=== PATIENT | male | born 1940 | race Caucasian/White ===

== ENCOUNTER 2022-03-16 05:48 | Inpatient (IN) | payer MEDICARE, OTHER, SELFPAY ==
[2022-03-16] VITALS (15 sets, daily range): BP systolic 116–177; BP diastolic 43–97; PULSE 69–98; RESP 15–20; TEMP 36.5–36.6; O2SAT 95–99; BMI 33.7
--- NOTE | 2022-03-16 | ECHO_ITS ---
Patient Info Name: Rob Aguiar Age: 81 years : 1940 Gender: Male Ht: 74 in Wt: 262 lbs BSA: 2.53 m2 HR: 95 bpm BP: 116 / 82 mmHg Heart Rhythm: Indeterminant Technical Quality: Fair Exam Date: 03/16/2022 4:27 PM Exam Location: [facility] Pulmonary Exam Room: 213 Patient Status: Inpatient Admit Date: 03/16/2022 Staff Ordering Physician: Omar Quiñonez MD Retail Department Reset: Yakelin Palafox RDCS Attending Provider: Omar Quiñonez MD Exam Type: CA echo doppler color flow Study Info Indications - ELEVATED TROPONINS CAD PPM Complete two-dimensional, color flow and Doppler transthoracic echocardiogram is performed. Summary 1. Complete two-dimensional, color flow and Doppler transthoracic echocardiogram is performed. 2. Normal left ventricular size with mild concentric hypertrophy. Moderate global hypokinesis with an ejection fraction of 35-40% visually. No segmental wall motion abnormalities although there is abnormal septal motion perhaps related to the underlying bundle branch block. Diastolic dysfunction is present. 3. Left atrial chamber dimension is mildly enlarged. 4. No significant valve disease. 5. Dilated inferior vena cava with >50% collapse upon inspiration consistent with elevated right atrial pressure, 10 mmHg. 6. Very technically difficult study. Left Ventricle Left ventricular chamber dimension is normal. Left ventricular systolic function is moderately reduced, estimated at 35-40%. There is mildly increased left ventricular wall thickness. Left ventricular septal wall motion is normal. The left ventricular diastolic function is abnormal. Right Ventricle Right ventricular chamber dimension is normal. Right ventricular systolic function is normal. Left Atria Left atrial chamber dimension is mildly enlarged. Right Atria Right atrial chamber dimension is normal. Aortic Valve The aortic valve is trileaflet. There is no aortic valve sclerosis. There is no aortic valve stenosis. There is no aortic valve regurgitation. Pulmonic Valve The pulmonic valve is normal. There is no pulmonic valve stenosis. There is no pulmonic regurgitation. Mitral Valve The mitral valve has normal leaflets. There is no mitral valve stenosis. There is no mitral valve regurgitation. Tricuspid Valve The tricuspid valve leaflets are normal. There is no significant tricuspid valve stenosis. There is trace tricuspid valve regurgitation. Mild pulmonary hypertension, estimated pulmonary arterial systolic pressure is 35 mmHg. Pericardium/Pleural The pericardium appears normal. There is no pericardial effusion. Inferior Vena Cava Dilated inferior vena cava with >50% collapse upon inspiration consistent with elevated right atrial pressure, 10 mmHg. Aorta The aortic root size at the sinus of Valsalva is normal. The prox ascending aorta size is normal. Left Ventricular Outflow Tract Name Value Normal LVOT 2D LVOT Diameter 2.2 cm LVOT Doppler LVOT Peak Gradient 4 mmHg LVOT Mean Gradient 3 mmHg LVOT VTI
--- NOTE | ~2022-03-16 | US_ITS ---
US renal BI 03/16/2022 15:23 Procedure: Realtime transabdominal ultrasound of the kidneys and bladder. Indication: Renal insufficiency Comparison: No prior studies for comparison. Findings: Renal echotexture is normal bilaterally without hydronephrosis, contour deforming mass or r enal calculus. The right kidney measures 11.7 cm and left kidney measures 11.9 cm. Bladder within no rmal limits. There is a left renal cyst measuring 1.7 cm. Mildly enlarged prostate gland. Impression: 1: Left renal cyst measuring 1.7 cm. Reviewed, dictated and finalized at location B. Impression: 1: Left renal cyst measuring 1.7 cm.
--- NOTE | ~2022-03-16 | XR_ITS ---
EXAMINATION: XR chest 1V portable DATE: 03/16/2022 06:10 INDICATION: Chest tightness. TECHNIQUE: A single frontal view of the chest was obtained. COMPARISON: None. FINDINGS: There is no pneumonia, pleural effusion, or pneumothorax. Cardiomegaly is noted. There is a left chest wall pacer with leads in the right atrium and right ventricle. IMPRESSION: 1. Cardiomegaly. Reviewed, dictated and finalized at location A. IMPRESSION: 1. Cardiomegaly.
--- NOTE | ~2022-03-16 | CT_ITS ---
EXAMINATION: CT abdomen pelvis wo con DATE: 03/16/2022 07:09 INDICATION: Generalized abdominal pain. TECHNIQUE: Computed tomography (CT) of the abdomen and pelvis was performed without intravenous contr ast. Automated exposure control and iterative reconstruction technique were employed. The dose-length product was 1374.91 mGy-cm. COMPARISON: None. FINDINGS: The visualized portions of the lung bases are clear without pneumonia or pleural effusion. The heart size is normal. There are coronary artery calcifications. There are pacer wires in right at rium and right ventricle. No pericardial effusion. There is a small sliding hiatal hernia. The liver and spleen are normal. There is gallstones in the gallbladder, which is normal in size. The pancreas, adrenal glands, and kidneys are normal. There is no urolithiasis. The prostate is mildly enlarged. T here is prominent fat in right inguinal canal that may be a hernia. There is diverticulosis of the co gavino without evidence of diverticulitis. The appendix is normal. There are no pathologically enlarged lymph nodes. There is no free intraperitoneal fluid. There is an umbilical hernia containing fat. The re is severe lumbar spondylosis. There are bridging endplate osteophytes at multiple levels in the sp ine, consistent with diffuse idiopathic skeletal hyperostosis (DISH). IMPRESSION: 1. Small sliding hiatal hernia. 2. Umbilical hernia containing fat. Prominent fat in right inguinal canal that may be a hernia. Reviewed, dictated and finalized at location A.
--- NOTE | 2022-03-16 05:55 | ED.ABDPAIN ---
HPI - Abdominal Pain General Chief Complaint: Abdominal Pain Stated Complaint: ABD PAIN Time Seen by Provider: 03/16/22 05:54 History of Present Illness HPI narrative: 81-year-old male with history of CAD, with pacemaker presents here with several days of feeling unwell, he is endorsing nausea and feeling of anxiety, states that he thinks he may be having panic attacks though he is never had them in the past, with some mild chest tightness and difficulty breathing, and abdominal pain along the top of his abdomen. Related Data Allergies Allergy/AdvReac Type Severity Reaction Status Date / Time metformin Allergy Unknown Verified 03/16/22 07:37 Review of Systems Review of Systems: CONST: No fever. HEENT: No sore throat C/V: Chest tightness RESP: Some difficulty breathing GI: Reports abdominal pain, nausea : No dysuria. M/S: No joint pain. SKIN: No rash. NEURO: [No headache or focal numbness or weakness] PSYCH: [No depression] PMFSH Past Medical History Medical History (Updated 03/16/22 @ 07:32 by Leigh Zhou MD) CAD (coronary artery disease) Surgical History Surgical History (Updated 03/16/22 @ 07:32 by Leigh Zhou MD) History of permanent cardiac pacemaker placement Course Vital Signs Vital signs: Vital Signs Temperature 97.9 F 03/16/22 05:40 Pulse Rate 98 03/16/22 05:40 Respiratory Rate 15 03/16/22 05:40 Blood Pressure 134/43 L 03/16/22 05:40 Pulse Oximetry 99 03/16/22 05:40 Oxygen Delivery Room Air 03/16/22 05:40 Temperature 97.9 F 03/16/22 05:40 Pulse Rate 95 03/16/22 06:53 Respiratory Rate 15 03/16/22 06:53 Blood Pressure 123/97 H 03/16/22 06:53 Pulse Oximetry 98 03/16/22 06:53 Oxygen Delivery Room Air 03/16/22 05:40 MDM - Abdominal Pain MDM Narrative Medical decision making narrative: ED COURSE AND MEDICAL DECISION MAKIN81 year old male presenting with anxiety attack. EKG done in triage negative for acute ischemic changes but a lot of ectopy. Cardiac workup is initiated. I am concerned for ACS/FL, presentation not consistent with dissection or aneurysm without radiation of pain or pulse deficits. CXR negative for mediastinal widening. No signs of sepsis that would be concerning for esophageal perforation or mediastinitis. No cardiomegaly or JVD to suggest pericardial effusion/tamponade; also considered pancreatitis or biliary disease. Troponin is elevated. Patient given aspirin, and will be admitted for further workup. Case discussed with hospitalist Dr. Quiñonez. Procedures: Pulse oximetry interpretation - not hypoxic. EKG interpretation. Lab Data Result diagrams: 03/16/22 05:57 03/16/22 05:57 Labs: Lab Results 03/16/22 03/16/22 03/16/22 Range/Units 05:57 05:57 06:26 WBC 10.3 H (4.5-10.0) K/mm3 RBC 4.32 L (4.6-6.20) M/mm3 Hgb 12.7 L (14.0-18.0) g/dL Hct 38.3 L (42.0-52.0) % MCV 88.7 (80-100) fl MCH 29.4 (26-34) pg MCHC 33.2 (32-36) g/dl RDW 12.8 (11.5-14.5) % Plt Count 263 (150-375) k/mm3 MPV 10.0 (7.4-10.4) fl Immature Gran % (Auto) 0.6 H (0-0.5) % Neut % (Auto) 69.8 (45.5-73.1) % Lymph % (Auto) 18.0 L (18.3-44.2) % Walton % (Auto) 8.8 H (2.6-8.5) % Eos % (Auto) 2.2 (0-4.4) % Baso % (Auto) 0.6 (0.2-1.2) % Lymph # (Auto) 1.86 (0.9-3.2) K/mm3 Walton # (Auto) 0.9 H (0.1-0.6) K/mm3 Eos # (Auto) 0.2 (0-0.3) K/mm3 Baso # (Auto) 0.1 (0.0-0.1) K/mm3 Abs Immat Gran (auto) 0.06 H (0.00-0.031) K/mm3 Absolute Neuts (auto) 7.2 H (1.3-6.7) K/mm3 Absolute Nucleated RBC 0.0 (0.0-0.012) K/mm3 Nucleated RBC % 0.0 (0.0-0.2) % Sodium 127 L (137-145) mmol/L Potassium 4.5 (3.4-5.0) mmol/L Chloride 94 L (98-107) mmol/L Carbon Dioxide 23 (22-30) mmol/L Anion Gap 10 (8-16) mmol/L BUN 29 H (9-20) mg/dL Creatinine 1.60 H (0.7-1.3) mg/dL Estim Creat Clear Calc Not Rep
--- NOTE | 2022-03-16 05:56 | ECG_ITS ---
Measurements Intervals [place] Rate: 95 P: 123 VA: 215 QRS: 264 QRSD: 178 T: 76 QT: 415 QTc: 522 Interpretive Statements ELECTRONIC ATRIAL PACEMAKER ELECTRONIC VENTRICULAR PACEMAKER APPROPRIATE CAPTURE AND SENSING DEMONSTRATED ABNORMAL RHYTHM ECG NO PREVIOUS ECG AVAILABLE FOR COMPARISON Electronically Signed On 03-16-2022 7:27:59 CDT by Aj Wade M.D.
[2022-03-16 06:08] LABS: Basophils Absolute Auto 0.1 K/mm3 (0.0-0.1); Basophils Percent Auto 0.6 % (0.2-1.2); Eosinophils Absolute Auto 0.2 K/mm3 (0-0.3); Eosinophils Percent Auto 2.2 % (0-4.4); Hematocrit 38.3 % (42.0-52.0); Hemoglobin 12.7 g/dL (14.0-18.0); Immature Granulocyte Absolute 0.06 K/mm3 (0.00-0.031); Immature Granulocyte Percent A 0.6 % (0-0.5); Lymphocytes Absolute Auto 1.86 K/mm3 (0.9-3.2); Mean Corpuscular HGB Conc 33.2 g/dl (32-36); Mean Corpuscular Hemoglobin 29.4 pg (26-34); Mean Corpuscular Volume 88.7 fl (80-100); Monocytes Absolute Auto 0.9 K/mm3 (0.1-0.6); Monocytes Percent Auto 8.8 % (2.6-8.5); Neutrophils Absolute Auto 7.2 K/mm3 (1.3-6.7); Neutrophils Percent Auto 69.8 % (45.5-73.1); Platelet Count Result 263 k/mm3 (150-375); Red Blood Count 4.32 M/mm3 (4.6-6.20); Red Cell Distribution Width 12.8 % (11.5-14.5); White Blood Count 10.3 K/mm3 (4.5-10.0)
[2022-03-16 06:14] LABS: Alanine Aminotransferase 26 U/L (6-50); Albumin Level 4.5 g/dL (3.5-5.1); Alkaline Phosphatase 116 U/L (38-126); Anion Gap 10 mmol/L (8-16); Aspartate Amino Transferase 27 U/L (17-59); Bilirubin,Total 0.8 mg/dL (0.2-1.3); Blood Urea Nitrogen 29 mg/dL (9-20); Calcium 8.6 mg/dL (8.4-10.2); Carbon Dioxide 23 mmol/L (22-30); Chloride 94 mmol/L (98-107); Estimated Glomerular Filt Rate 42; Glucose 214 mg/dL (65-110); Magnesium 1.9 mg/dL (1.6-2.3); Potassium 4.5 mmol/L (3.4-5.0); Sodium 127 mmol/L (137-145)
[2022-03-16 06:36] LABS: NT Pro B Type Natriuretic Pept 1260 pg/mL (5-100); Troponin I 0.102 ng/mL (0.000-0.034)
[2022-03-16 06:41] LABS: Appearance Urine Clear (Clear); Bilirubin Urine Negative (Negative); Color Urine Yellow (Yellow); Glucose Urine UA Negative (Negative); Ketones Urine Negative (Negative); Leukocyte Esterase Ur Negative LEU/UL (Negative); Nitrate Urine Negative (Negative); Protein Urine Negative (Negative); Urobilinogen Urine 0.2 mg/dL (<2.0)
[2022-03-16 06:52] LABS: Add Urine Microscopic? YES; Blood Urine Trace-Intact (Negative)
[2022-03-16] MEDS: ONDANSETRON INJ 4 MG/2 ML VIAL IV PUSH (06:52)
[2022-03-16] MEDS: FAMOTIDINE 20 MG/2 ML VIAL IV PUSH (06:52)
[2022-03-16] MEDS: ASPIRIN 81 MG CHEWABLE TABLET 324 MG PO (06:52)
[2022-03-16 07:37] LABS: Bacteria Urine Trace /hpf; RBC Urine 0-2 /hpf (0-2)
--- NOTE | 2022-03-16 08:24 | ADMGEN ---
This patient, Rob Aguiar Jr., was admitted to IMU Room 213-01 @ 0815. Patient oriented to hospital policies and general routines including ID bracelet, bed and alarms, visiting hours, pain management, procedures, bathroom and other care routines, personal items, smoking policy, room service/diet, and visiting hours. Information on how to activate the Rapid Response Team has been discussed. Patient are encouraged to report perceived risks to care and to ask questions if they do not understand what they are told or what they should do.
[2022-03-16 09:29] LABS: Troponin I 0.092 ng/mL (0.000-0.034)
[2022-03-16 12:37] LABS: Troponin I 0.088 ng/mL (0.000-0.034)
--- NOTE | 2022-03-16 13:27 | PM.IMHP ---
H&P: HPI History of Present Illness Date/Time: 03/16/22 13:27 Chief Complaint: Abdominal pain Narrative: 81yo male with hx of CAD, PM and anxiety here for abdominal pain. Patient was living in [place] up until sometime last year. His in October 2020. He subsequently moved to [facility]. He was diagnosed with anxiety after that move. Prior to moving, he never had issues with anxiety. He has since moved to [facility] assisted living to be close to his son in October 2021. Which patient has continued to have ?problems with anxiety? over the past 8-9 months. Anxiety seemed to worsen over the past 3 days with ?anxiety attacks?. Feels that the a ?johnson are closing in? and describes the symptoms as slight shortness of breath, nausea and upper abdominal pain. He has had decreased output but no weight loss. He lost weight at the time of his 's passing but has gained that weight back. About 3 weeks ago, he cut his BuSpar in half but his symptoms worsened so he went back to a full pill 3 times a day about 1 week ago. Patient denies any fever, chills, headache, diaphoresis, hearing loss, vision changes, odynophagia, dysphagia, chest pain, diarrhea, numbness/tingling in his extremities, weakness, calf pain, rash, joint pain. He does have fluttering in his chest during these events. [facility]. he has coronary disease and a pacemaker in place but he is vague on these details. He does have hypertension and diet-controlled diabetes. When he has the onset of these symptoms he ?tough it out . Nothing seems to make the symptoms better or worse. He does not know of any trigger. Patient had trouble sleeping last night. His insomnia made his symptoms of anxiety worse. In the [place] fire [facility] hours EMS was contacted. On EMS evaluation, patient's vital signs were stable. Glucose was 246. He was brought to the emergency room for evaluation. In the emergency room, vital signs remained stable. Sodium was 127 with a BUN 29 creatinine 1.6. Baseline creatinine is unknown. Patient denies any renal problems. His glucose was 214. LFTs are normal. Troponin was elevated 0.10 but has trended down from there. BNP was 1260. Urinalysis was clear. Chest x-ray showed cardiomegaly. CT of the abdomen pelvis without contrast showed small sliding hiatal hernia and umbilical hernia containing fat. He did have gallstones noted. He is given Pepcid once as well as aspirin and Zofran. He was admitted for further care. Since admission, patient feels well. He is eating and tolerating it without symptoms. Review of Systems Review of Systems: All systems reviewed & are unremarkable except as noted in HPI and below PMFSH Past Medical History Medical History (Updated 03/16/22 @ 13:55 by Omar Quiñonez MD) Anxiety CAD (coronary artery disease) Diabetes mellitus HTN (hypertension), benign Surgical History Surgical History (Updated 03/16/22 @ 13:43 by Omar Quiñonez MD) H/O arthroscopic knee surgery H/O shoulder surgery History of cervical spinal surgery History of lumbar surgery History of permanent cardiac pacemaker placement Family History Family History (Updated 03/16/22 @ 13:44 by Omar Quiñonez MD) Father CAD (coronary artery disease) Mother Diabetes mellitus Sibling Leukemia Other Unknown family medical history Social History Social History (Updated 03/16/22 @ 13:45 by Omar Quiñonez MD) Social History: Patient lives in assisted living in [place]. He [facility]. He quit tobacco in 1979 after smoking half a pack a day for 20 years. Denies alcohol or drug use. Lives alone. He is DNR. He nominates his son to be the individual would make medical decisions for him if he is unable. Smoking status: Former smoker Tobacco type: cigarettes Alcohol intake: never Substance use: never Spiritual care concerns: No Meds Home Medications and Allergies Ho
[2022-03-16 15:30] LABS: Lipase 55 U/L (23-300)
[2022-03-16 15:33] LABS: Anion Gap 7 mmol/L (8-16); Blood Urea Nitrogen 28 mg/dL (9-20); Calcium 8.4 mg/dL (8.4-10.2); Carbon Dioxide 25 mmol/L (22-30); Chloride 95 mmol/L (98-107); Estimated CRCL calculation 44 ml/min; Estimated Glomerular Filt Rate 42; Glucose 190 mg/dL (65-110); Potassium 5.5 mmol/L (3.4-5.0); Sodium 127 mmol/L (137-145)
[2022-03-16 15:34] LABS: D Dimer 0.41 ug/mL (<0.48)
[2022-03-16] MEDS: polyethylene glycoL 3350 17 GM POWD.PACK PO (15:59)
[2022-03-16] MEDS: ALPRAZolam (*CRX) 0.25 MG TABLET PO (16:01)
[2022-03-16] MEDS: SODIUM CHLORIDE 0.9% IV 1,000 ML 100 ML IV CONT (16:02)
[2022-03-16 16:42] LABS: Glucose Point of Care 162 mg/dl (65-105)
--- NOTE | 2022-03-16 16:57 | PC.NURSE ---
[facility] PACEMAKER REP CALLED FOR INTERROGATION OF PACEMAKER
[2022-03-16 19:06] LABS: Eosinophil Urine None Seen % (None Seen)
[2022-03-16 19:58] LABS: Potassium 5.8 mmol/L (3.4-5.0)
[2022-03-16 20:09] LABS: Glucose Point of Care 171 mg/dl (65-105)
[2022-03-16] MEDS: traZODone HCL 25 MG TABLET PO (21:19)
[2022-03-16] MEDS: TAMSULOSIN HCL 0.4 MG CAPSULE PO (21:19)
[2022-03-16] MEDS: ATORVASTATIN 40 MG TABLET 80 MG PO (21:20)
[2022-03-16 21:42] LABS: Hemoglobin A1C 7.9 % (<5.7)
[2022-03-16] MEDS: SODIUM BICARBONATE 8.4% 50 MEQ/50 ML SYRINGE IV PUSH (23:43)
[2022-03-16] MEDS: CALCIUM GLUC 1,000 MG/NS 50 ML 1,000 MG/50 ML BAG 100 MG IVPB (23:43)
[2022-03-16] MEDS: DEXTROSE 50% 25 GM/50 ML SYRINGE IV PUSH (23:43)
[2022-03-16] MEDS: busPIRone HCL 10 MG TABLET PO (23:44)
[2022-03-16] MEDS: INSULIN HUMAN REGULAR (*BKC) 100 UNITS/ML 10 UNITS IV PUSH (23:46)
[2022-03-16] MEDS: SODIUM POLYSTYRENE SULFONONATE 15 GM/60 ML BTL PO (23:55)
[2022-03-17] VITALS (13 sets, daily range): BP systolic 137–173; BP diastolic 65–88; PULSE 75–94; RESP 18; TEMP 36.2–36.8; O2SAT 97–100
[2022-03-17 00:37] LABS: Glucose Point of Care 180 mg/dl (65-105)
[2022-03-17 01:26] LABS: Anion Gap 8 mmol/L (8-16); Blood Urea Nitrogen 27 mg/dL (9-20); Calcium 8.7 mg/dL (8.4-10.2); Carbon Dioxide 25 mmol/L (22-30); Chloride 94 mmol/L (98-107); Estimated CRCL calculation 42 ml/min; Estimated Glomerular Filt Rate 39; Glucose 163 mg/dL (65-110); Potassium 4.5 mmol/L (3.4-5.0); Sodium 127 mmol/L (137-145)
[2022-03-17 05:04] LABS: Basophils Absolute Auto 0.1 K/mm3 (0.0-0.1); Basophils Percent Auto 0.6 % (0.2-1.2); Eosinophils Absolute Auto 0.2 K/mm3 (0-0.3); Eosinophils Percent Auto 1.8 % (0-4.4); Hematocrit 34.7 % (42.0-52.0); Hemoglobin 11.8 g/dL (14.0-18.0); Immature Granulocyte Absolute 0.05 K/mm3 (0.00-0.031); Immature Granulocyte Percent A 0.5 % (0-0.5); Lymphocytes Absolute Auto 1.55 K/mm3 (0.9-3.2); Mean Corpuscular Hemoglobin 29.5 pg (26-34); Mean Corpuscular Volume 86.8 fl (80-100); Mean Platelet Volume 9.7 fl (7.4-10.4); Monocytes Absolute Auto 1.1 K/mm3 (0.1-0.6); Monocytes Percent Auto 10.8 % (2.6-8.5); Neutrophils Absolute Auto 7.4 K/mm3 (1.3-6.7); Neutrophils Percent Auto 71.3 % (45.5-73.1); Platelet Count Result 246 k/mm3 (150-375); Red Cell Distribution Width 12.7 % (11.5-14.5); White Blood Count 10.3 K/mm3 (4.5-10.0)
[2022-03-17 05:20] LABS: Alanine Aminotransferase 25 U/L (6-50); Albumin Level 3.8 g/dL (3.5-5.1); Alkaline Phosphatase 74 U/L (38-126); Anion Gap 8 mmol/L (8-16); Aspartate Amino Transferase 25 U/L (17-59); Bilirubin,Total 1.3 mg/dL (0.2-1.3); Blood Urea Nitrogen 27 mg/dL (9-20); CRP < 0.5 mg/dL (<1.0); Calcium 8.4 mg/dL (8.4-10.2); Carbon Dioxide 24 mmol/L (22-30); Chloride 96 mmol/L (98-107); Estimated CRCL calculation 44 ml/min; Estimated Glomerular Filt Rate 42; Glucose 119 mg/dL (65-110); Potassium 4.4 mmol/L (3.4-5.0); Sodium 128 mmol/L (137-145)
[2022-03-17] MEDS: busPIRone HCL 10 MG TABLET PO ×3 (05:40→23:33)
[2022-03-17 05:57] LABS: Cortisol Random 9.53 ug/dL
[2022-03-17] MEDS: CHOLECALCIFEROL 1,000 UNITS TABLET 1000 UNITS PO (08:52)
[2022-03-17] MEDS: PANTOPRAZOLE 40 MG TABLET PO (08:52)
[2022-03-17] MEDS: ENOXAPARIN 40 MG/0.4 ML SYRINGE SUB-Q (08:53)
[2022-03-17] MEDS: FINASTERIDE 5 MG TABLET PO (08:53)
[2022-03-17] MEDS: ASPIRIN 81 MG ENTERIC TABLET PO (08:53)
[2022-03-17 08:56] LABS: Glucose Point of Care 142 mg/dl (65-105)
--- NOTE | 2022-03-17 09:11 | PM.CNCAR ---
Assessment and Plan Assessment and plan (1) Elevated troponin: Code(s): R77.8 - Other specified abnormalities of plasma proteins Status: Acute Assessment and Plan: Peaked at .1 and trended down. Could be related to systolic dysfunction, CKD or CAD. No symptoms to suggest ACS. Echo 03/16/22 with global hypokinesis with EF 35-40%. Obtain Lexiscan myoview stress test today. (2) HTN (hypertension), benign: Code(s): I10 - Essential (primary) hypertension Status: Acute Assessment and Plan: Stable. (3) History of permanent cardiac pacemaker placement: Code(s): Z95.0 - Presence of cardiac pacemaker Status: Acute Assessment and Plan: [employer] device being interrogated shows no arrhythmias including atrial fib. He is 95% V paced with 10 years battery life. (4) Systolic dysfunction: Code(s): I51.9 - Heart disease, unspecified Status: Acute Assessment and Plan: Moderately reduced. Obtain records from [facility] of echo, cath, pacemaker implant and hospitalization notes. (5) Anxiety attack: Code(s): F41.0 - Panic disorder [episodic paroxysmal anxiety] Status: Acute Assessment and Plan: Symptoms probably related to anxiety. (6) Diabetes mellitus: Code(s): E11.9 - Type 2 diabetes mellitus without complications Status: Acute Assessment and Plan: Managed by hospitalist. (7) Dyslipidemia: Code(s): E78.5 - Hyperlipidemia, unspecified Status: Acute Assessment and Plan: On Atorvastatin. History of Present Illness History of Present Illness Consult date/time: 03/17/22 09:11 Reason for consult: elevated troponin 81 yr old man presented to ER with anxiety attack. 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 He is a poor historian. Reports that he relocated from [place] to [facility] last year. Then he relocated recently to [facility] living locally. He can walk with his walker up to 1 block and he uses it for balance. Reports he has been having more anxiety attacks and it manifest as sob, palpitations, abdominal pain. Currently his anxiety is better and no more symptoms associated with it. Denies chest pain, sob, orthopnea, PND, edema, dizziness. Reason For Visit: Elevated Trop, Chest/ Abdominal DIscomfort Review of Systems Review of Systems: All systems reviewed & are unremarkable except as noted in HPI and below Constitutional: Constitutional: Reports as per HPI, Denies chills and Denies fever(s) Cardiovascular: Cardiovascular: Reports as per HPI, Denies chest pain, Denies irregular heart rhythm, Denies leg edema and Denies lightheadedness Respiratory: Respiratory: Reports as per HPI and Reports dyspnea Gastrointestinal: Gastrointestinal: Reports as per HPI and Reports abdominal pain Genitourinary: Genitourinary: Reports as per HPI and Denies dysuria Musculoskeletal: Musculoskeletal: Reports as per HPI and Reports back pain Neurologic: Reports as per HPI, Denies dizziness and Denies syncope [facility] Past Medical History Medical History (Updated 03/17/22 @ 09:16 by Jonas Conner DO) Anxiety CAD (coronary artery disease) Diabetes mellitus HTN (hypertension), benign Surgical History Surgical History (Updated 03/16/22 @ 13:43 by Omar Quiñonez MD) H/O arthroscopic knee surgery H/O shoulder surgery History of cervical spinal surgery History of lumbar surgery History of permanent cardiac pacemaker placement Family History Family History (Updated 03/16/22 @ 13:44 by Omar Quiñonez MD) Father CAD (coronary artery disease) Mother Diabetes mellitus Sibling Leukemia Other Unknown family medical history Social History Social History (Updated 03/16/22 @ 13:45 by Omar Quiñonez MD) Social History: Patient lives in assisted living in [place]. [facility] He quit
[2022-03-17 12:37] LABS: Glucose Point of Care 119 mg/dl (65-105)
[2022-03-17] MEDS: polyethylene glycoL 3350 17 GM POWD.PACK PO (13:00)
[2022-03-17] MEDS: ALPRAZolam (*CRX) 0.25 MG TABLET PO ×2 (16:02→23:36)
[2022-03-17 16:58] LABS: Glucose Point of Care 180 mg/dl (65-105)
--- NOTE | 2022-03-17 17:10 | PM.IMPN ---
Progress Note: A&P Assessment and Plan (1) Abdominal pain: Code(s): R10.9 - Unspecified abdominal pain Status: Acute (2) Elevated troponin: Code(s): R77.8 - Other specified abnormalities of plasma proteins Status: Acute (3) Anxiety attack: Code(s): F41.0 - Panic disorder [episodic paroxysmal anxiety] Status: Acute (4) Renal insufficiency: Code(s): N28.9 - Disorder of kidney and ureter, unspecified Status: Acute (5) Diabetes mellitus: Code(s): E11.9 - Type 2 diabetes mellitus without complications Status: Acute (6) HTN (hypertension), benign: Code(s): I10 - Essential (primary) hypertension Status: Acute (7) History of permanent cardiac pacemaker placement: Code(s): Z95.0 - Presence of cardiac pacemaker Status: Acute (8) Hyponatremia: Code(s): E87.1 - Hypo-osmolality and hyponatremia Status: Acute Plan Patient presents with complaints of ?anxiety attack? associated with shortness of breath and upper abdominal pain. He has ?heart disease? but is unclear if he has had stent placement. He does have other risk factors such as diabetes and hypertension. Troponins are elevated on admission but trended downward. EKG is unhelpful as is mostly paced rhythm. Chest x-ray shows cardiomegaly but no pulmonary edema. BNP elevated but doubt CHF. Symptoms could be related to anxiety with panic attacks but does not explain the elevated troponin. Lexiscan stress test ordered but he could not tolerate. PM interrogation showing mostly Atrial or ventricular paced. Sodium slightly better. Cr stable at 1.6. Renal ultrasound normal. A1c 7.9 but glucose well controlled here. Continue diabetic diet. Echo showing EF 35-40% with diastolic dysfunction. No significant valvular disease noted. Will add empagliflozin. BP noted. Continue to hold hydrochlorothiazide and lisinopril. Mood seems to be better today. Will continue his BuSpar and trazodone. Alprazolam available as needed. Old records requested. Start PT and OT. Check urine sodium. Appreciate Cardiology input. Discussed with Cardiology. Will add Coreg. Consider Entresto. DVT prophylaxis: Lovenox Code status: DNR Subjective Date/time seen: 03/17/22 17:10 Interval history: 81yo male with hx of CAD, PM and anxiety here for abdominal pain. Patient slept well last night. He denies any abdominal pain. He has been up walking the halls. He denies any chest pain or shortness of breath. No nausea or vomiting. Exam Narrative: AF 97.2 173/72 88 18 100% ra Gen - NARD Chest - CTA bilaterally CV - irregularly irregular; Tele showing intermittently paced rhythm Abd - soft, NT/ND, +BS Ext - no pedal edema Psych - normal mood and affect. Patient is calm, pleasant and cooperative. Skin - warm and dry. Objective Data Vital Signs Vital Signs: Vital Signs - 24 hr 03/16/22 17:55 03/16/22 20:00 03/16/22 23:25 Temperature 97.9 F 97.9 F Pulse Rate 97 69 82 Respiratory Rate 20 18 Blood Pressure 134/57 L 130/50 L Pulse Oximetry 97 96 Oxygen Delivery 03/16/22 20:00 03/16/22 22:00 03/17/22 00:00 Temperature Pulse Rate 86 70 75 Respiratory Rate Blood Pressure Pulse Oximetry Oxygen Delivery 03/17/22 02:00 03/16/22 22:53 03/17/22 04:00 Temperature 97.9 F Pulse Rate 85 80 Respiratory Rate 18 Blood Pressure 137/65 Pulse Oximetry 97 99 Oxygen Delivery Room Air 03/17/22 04:00 03/17/22 06:00 03/17/22 08:00 Temperature 97.2 F L Pulse Rate 90 85 91 Respiratory Rate 18 Blood Pressure 157/88 H Pulse Oximetry 99 Oxygen Delivery 03/17/22 12:00 Temperature 97.2 F L Pulse Rate 88 Respiratory Rate 18 Blood Pressure 173/72 H Pulse Oximetry 100 Oxygen Delivery Intake/Output Intake/Output: Intake & Output 03/14/22 03/15/22 03/16/22 03/17/22 23:59 23:59 23:59 23:59 Intake Total 1240 1350 Output Total
--- NOTE | 2022-03-17 19:45 | PC.NURSE ---
Patient follows with the following providers outpatient. Dr. Harding- PCP . Dr. Barreto[place] [facility] [id number] Dr. Bonds- EP
[2022-03-17] MEDS: traZODone HCL 25 MG TABLET PO (20:51)
[2022-03-17] MEDS: TAMSULOSIN HCL 0.4 MG CAPSULE PO (20:51)
[2022-03-17] MEDS: carvediloL 3.125 MG TABLET PO (20:56)
[2022-03-17] MEDS: ATORVASTATIN 40 MG TABLET 80 MG PO (20:56)
[2022-03-17 21:54] LABS: Glucose Point of Care 120 mg/dl (65-105)
[2022-03-18] VITALS: BP 134/57; PULSE 80; PULSE 87; RESP 18; TEMP 36.2; O2SAT 98
[2022-03-18 04:00] VITALS: PULSE 87
[2022-03-18 05:20] LABS: Anion Gap 7 mmol/L (8-16); Blood Urea Nitrogen 28 mg/dL (9-20); Calcium 8.3 mg/dL (8.4-10.2); Carbon Dioxide 24 mmol/L (22-30); Chloride 97 mmol/L (98-107); Estimated CRCL calculation 47 ml/min; Estimated Glomerular Filt Rate 45; Glucose 101 mg/dL (65-110); Magnesium 1.7 mg/dL (1.6-2.3); Potassium 4.6 mmol/L (3.4-5.0); Sodium 128 mmol/L (137-145)
[2022-03-18] MEDS: busPIRone HCL 10 MG TABLET PO ×2 (06:08→17:07)
--- NOTE | 2022-03-18 07:55 | PM.PNCARD ---
Progress Note: A&P Assessment and Plan (1) Elevated troponin: Code(s): R77.8 - Other specified abnormalities of plasma proteins Status: Acute Assessment and Plan: Peaked at .1 and trended down. Could be related to systolic dysfunction, CKD or CAD. No symptoms to suggest ACS. Echo 03/16/22 with global hypokinesis with EF 35-40%. Unable to do lexiscan myoview stress test due to unable to lie flat, per patient. (2) HTN (hypertension), benign: Code(s): I10 - Essential (primary) hypertension Status: Acute Assessment and Plan: High. Started Coreg 3.125 mg BID. Start Entresto. (3) History of permanent cardiac pacemaker placement: Code(s): Z95.0 - Presence of cardiac pacemaker Status: Acute Assessment and Plan: [employer] device being interrogated shows no arrhythmias including atrial fib. He is 95% V paced with 10 years battery life. (4) Systolic dysfunction: Code(s): I51.9 - Heart disease, unspecified Status: Acute Assessment and Plan: Started Coreg 3.125 mg BID and Jardiance. Start Entresto 12-13 mg BID as he has been off Lisinopril for at least 48 hours. Await records from [place], [place] in Jun 2019 when he had pacemaker, echo, and possible cardiac cath. February d/c home from cardiology standpoint and f/u with me in 1 week. (5) Diabetes mellitus: Code(s): E11.9 - Type 2 diabetes mellitus without complications Status: Acute Assessment and Plan: Managed by hospitalist. (6) Dyslipidemia: Code(s): E78.5 - Hyperlipidemia, unspecified Status: Acute Assessment and Plan: On Atorvastatin. Subjective Date/time seen: 03/18/22 07:55 Denies chest pain or sob. Anxiety resolved and no more abdominal pain. Exam Const: General: cooperative, healthy appearing and comfortable Nutritional Appearance: obese Resp: Auscultation: clear to auscultation bilaterally, no crackles, no rales, no rhonchi and no wheezes Cardio: Jugular venous distension: no JVD Rate: regular rate Rhythm: regular rhythm Heart sounds: no murmurs GI: GI Palp: No abdominal tenderness and Yes Soft to palpation Neuro: General: oriented to person, oriented to place and oriented to time Extrem: Right lower extremity: no edema Left lower extremity: no edema Objective Data Vital Signs Vital Signs: Vital Signs - 24 hr 03/17/22 08:00 03/17/22 12:00 03/17/22 08:00 Temperature 97.2 F L 97.2 F L Pulse Rate 91 88 Respiratory Rate 18 18 Blood Pressure 157/88 H 173/72 H Pulse Oximetry 99 100 Oxygen Delivery Room Air 03/17/22 12:00 03/17/22 16:00 03/17/22 16:00 Temperature 98.3 F Pulse Rate 82 Respiratory Rate 18 Blood Pressure 162/70 H Pulse Oximetry 98 Oxygen Delivery Room Air Room Air 03/17/22 08:00 03/17/22 10:00 03/17/22 12:00 Temperature Pulse Rate 87 85 87 Respiratory Rate Blood Pressure Pulse Oximetry Oxygen Delivery 03/17/22 14:00 03/17/22 16:00 03/17/22 18:00 Temperature Pulse Rate 90 88 94 Respiratory Rate Blood Pressure Pulse Oximetry Oxygen Delivery 03/17/22 20:56 03/17/22 23:04 03/18/22 00:00 Temperature 97.2 F L Pulse Rate 90 87 Respiratory Rate 18 Blood Pressure 134/57 L Pulse Oximetry 97 98 Oxygen Delivery Room Air 03/17/22 20:00 03/18/22 00:00 03/17/22 20:00 Temperature Pulse Rate 85 80 Respiratory Rate Blood Pressure Pulse Oximetry Oxygen Delivery Room Air 03/18/22 04:00 Temperature Pulse Rate 87 Respiratory Rate Blood Pressure Pulse Oximetry Oxygen Delivery Intake/Output Intake/Output: Intake & Output 03/15/22 03/16/22 03/17/22 03/18/22 23:59 23:59 23:59 23:59 Intake Total 1240 2690 550 Output Total 400 1600 Balance 840 1090 550 Meds/Results Medications: Active Medications Generic Name Dose Route Start Last Admin Trade Name Freq PRN Reason Stop Dose Admin Alprazolam 0.25 mg
[2022-03-18 08:00] VITALS: BP 146/92; PULSE 105; PULSE 89; RESP 16; TEMP 36.1; O2SAT 98
[2022-03-18] MEDS: carvediloL 3.125 MG TABLET PO (08:18)
[2022-03-18] MEDS: PANTOPRAZOLE 40 MG TABLET PO (08:18)
[2022-03-18] MEDS: ASPIRIN 81 MG ENTERIC TABLET PO (08:18)
[2022-03-18] MEDS: CHOLECALCIFEROL 1,000 UNITS TABLET 1000 UNITS PO (08:18)
[2022-03-18] MEDS: ENOXAPARIN 40 MG/0.4 ML SYRINGE SUB-Q (08:18)
[2022-03-18] MEDS: FINASTERIDE 5 MG TABLET PO (08:18)
[2022-03-18] MEDS: polyethylene glycoL 3350 17 GM POWD.PACK PO (08:19)
[2022-03-18] MEDS: EMPAGLIFLOZIN 10 MG TABLET PO (08:19)
[2022-03-18 08:35] LABS: Glucose Point of Care 125 mg/dl (65-105)
[2022-03-18] MEDS: SACUBITRIL/VALSARTAN 12-13 MG TABLET 1 TAB PO (08:39)
[2022-03-18 12:00] VITALS: PULSE 98
[2022-03-18 12:59] LABS: Glucose Point of Care 139 mg/dl (65-105)
[2022-03-18 14:03] LABS: Creatinine Urine 47.3 mg/dL
[2022-03-18 14:16] LABS: Sodium Urine Random 33 meq/L
--- NOTE | 2022-03-18 15:47 | PM.DS ---
DS: Admitting Diagnosis Discharge Date 03/18/22 Admitting Diagnosis Abdominal pain DS: Discharge Diagnosis Discharge Diagnosis (1) Abdominal pain: Code(s): R10.9 - Unspecified abdominal pain Status: Acute (2) Elevated troponin: Code(s): R77.8 - Other specified abnormalities of plasma proteins Status: Acute (3) Anxiety attack: Code(s): F41.0 - Panic disorder [episodic paroxysmal anxiety] Status: Acute (4) Renal insufficiency: Code(s): N28.9 - Disorder of kidney and ureter, unspecified Status: Acute (5) Diabetes mellitus: Code(s): E11.9 - Type 2 diabetes mellitus without complications Status: Acute (6) HTN (hypertension), benign: Code(s): I10 - Essential (primary) hypertension Status: Acute (7) History of permanent cardiac pacemaker placement: Code(s): Z95.0 - Presence of cardiac pacemaker Status: Acute (8) Hyponatremia: Code(s): E87.1 - Hypo-osmolality and hyponatremia Status: Acute DS: Summary Hospital Course Reason for hospitalization: 81yo male with hx of CAD, PM and anxiety here for abdominal pain. Please see H&P for details. w Hospital Course: Patient presents with complaints of ?anxiety attack? associated with shortness of breath and upper abdominal pain. He has ?heart disease? but is unclear if he has had stent placement. He does have other risk factors such as diabetes and hypertension. Troponins are elevated on admission but trended downward. EKG was unhelpful as is mostly paced rhythm. Chest x-ray shows cardiomegaly but no pulmonary edema. BNP elevated but doubt CHF. Symptoms could be related to anxiety with panic attacks but does not explain the elevated troponin. Lexiscan stress test ordered but he could not tolerate lyiing flat. PM interrogation showing mostly Atrial or ventricular paced. Sodium was low but stable 128. [place] related to to the HCTZ. Cr elevated but stable at 1.5. Renal ultrasound normal. Bladder was within normal limits. He did have a PVR of about 300mL. UA was clear. He is already on Proscar and Flomax. No obstructive findings on US. Will have him follow up with urology as outpatient. A1c 7.9 but glucose well controlled here. Cardiology consulted and appreciate their input. Echo showing EF 35-40% with diastolic dysfunction. No significant valvular disease noted. We added empagliflozin, Coreg and Entresto. Mood improved. We continued his BuSpar and trazodone. Alprazolam was available as needed. Old records requested but none forth coming. He worked with PT and OT. His symptoms resolved. Overall he did well and was able to be discharged home on 03/18/2022. Family was in the room and they were updated with patient's permission. Status at Discharge Cognitive/behavioral status at discharge: Stable Time Spent with Patient Time attestation: Total time spent providing and/or coordinating discharge services: 35 minutes Time spent: Greater than 30 minutes Exam Narrative: AF 97.0 146/92 98 16 98% ra Gen - NARD Chest - CTA bilaterally CV - RRR S1/S2; Tele showing mostly paced rhythm Abd - soft, NT/ND, +BS, bladder feels mildly distended and he had about 300mL post-void Ext - no pedal edema Psych - normal mood and affect Skin - warm and dry. DS: Data Data Completed and Pending Labs on day of discharge: Labs from last 24 hours 03/18/22 03/18/22 03/18/22 12:56 12:44 08:29 Sodium Potassium Chloride Carbon Dioxide Anion Gap BUN Creatinine Estim Creat Clear Calc Estimated GFR Glucose POC Capillary Glucose 139 H 125 H Calcium Magnesium Ur Random Sodium 33 Urine Creatinine 47.3 03/18/22 03/17/22 03/17/22 05:01 20:29 16:33 Sodium 128 L Potassium 4.6 Chloride 97 L Carbon Dioxide 24 Anion Gap 7 L BUN 28 H Creatinine 1.50 H Estim Creat Clear Calc 47 Estimated GFR 45 L Gl
[2022-03-18 16:00] VITALS: BP 146/89; PULSE 88; PULSE 91; RESP 16; TEMP 36.3; O2SAT 100
--- NOTE | 2022-03-18 20:15 | PC.NURSE ---
Patient's family called after discharge stating patient did not have the medical coverage he thought and [facility] and they were also missing a prescription for alprazolam. Verified per discharge note that patient was to receive prescription for alprazolam and it was located unsigned printed on IMU printer. Called Dr Han due to Dr Quiñonez being gone for the day and she agrees to sign prescription for family to car pick up driver. Called and spoke with Anna Aguiar, Robyancy Aguiar's daughter in law, per patients request, and [facility] and made arrangements for her to car pick up driver prescription.
[2022-03-20 04:31] LABS: Legionella pneumophila Ag Ur Not Detected (Not Detected)
[2022-03-20 15:42] LABS: Metanephrine, Free 32 pg/mL (<=57); Normetanephrine, Free 256 pg/mL (<=148); Total, Free (MN + NMN) 288 pg/mL (<=205)
--- NOTE | 2022-03-21 11:31 | PC.NURSE ---
Legionella AG is not detected. Free Metanephrine- <=32 Free Normetanephrine- elevated at 256. Total Free Metanephrine- elevated at 288. Dr. Olamide sosa.
--- NOTE | 2022-03-24 08:28 | PC.NURSE ---
On 03/22 called [facility] to speak with nurse regarding f/u for patient. Nurse is not available at this time. Spoke with Mark today regarding patient need for f/u. Nurse unavailable. Left message for nurse to return my call.
--- NOTE | 2022-03-24 13:44 | PC.NURSE ---
Spoke to Shanice, Nurse with [facility], regarding patient abn labs. Patient is followed by DENTAL TECHNICIAN, Lavinia Crain. Labs faxed to [facility].
== END 2022-03-18 17:20 | disposition home or self-care (01) | DRG 880 ==
LOC: ANHED 07:28 → ANHIMU 07:51
PROVIDERS: Physician Assistant; Admitting Provider Internal Medicine; Emergency Provider Emergency Medicine; Visit Provider Internal Medicine
DX: F41.0 Panic disorder [episodic paroxysmal anxiety] (principal); E87.1 Hypo-osmolality and hyponatremia; R77.8 Other specified abnormalities of plasma proteins; F41.9 Anxiety disorder, unspecified; R10.10 Upper abdominal pain, unspecified; I25.10 Atherosclerotic heart disease of native coronary artery without angina pectoris; E11.9 Type 2 diabetes mellitus without complications; E87.5 Hyperkalemia; E66.9 Obesity, unspecified; I11.9 Hypertensive heart disease without heart failure; K42.9 Umbilical hernia without obstruction or gangrene; K44.9 Diaphragmatic hernia without obstruction or gangrene; K80.80 Other cholelithiasis without obstruction; N28.9 Disorder of kidney and ureter, unspecified; Z66 Do not resuscitate; Z79.82 Long term (current) use of aspirin; Z95.0 Presence of cardiac pacemaker; Z87.891 Personal history of nicotine dependence; Z68.33 Body mass index [BMI] 33.0-33.9, adult
CPT/HCPCS: 36415; 51701; 71045; 74176; 76775; 80048; 80053; 81001; 82533; 82570; 82948; 83036; 83690; 83735; 83835; 83880; 84132; 84300; 84443; 84484; 85025; 85380; 85999; 86140; 87449; 93005; 93306; 96361; 96365; 96372; 96375; 97161; 97165; 99285; A9270; G0378; J0610; J1650; J1815; J2405; J7030

== ENCOUNTER 2023-08-14 02:59 | Inpatient (IN) | payer MEDICARE, OTHER, SELFPAY ==
[2023-08-14] VITALS (46 sets, daily range): BP systolic 113–165; BP diastolic 47–92; PULSE 33–121; RESP 12–23; TEMP 36.1–36.7; O2SAT 94–100; BMI 31.1
--- NOTE | 2023-08-14 | ECHO_ITS ---
Patient Info Name: Rob Aguiar Age: 82 years : 1940 Gender: Male Ht: 74 in Wt: 242 lbs BSA: 2.42 m2 HR: 68 bpm BP: 121 / 81 mmHg Technical Quality: Poor Exam Date: 08/14/2023 11:48 AM Exam Location: Echo Lab Exam Room: ICU-3 Patient Status: Inpatient Admit Date: 08/14/2023 Staff Ordering Physician: Jonas Conner DO 1 Year [employer] Pres[employer] Teacher: Yakelin Palafox RDCS Attending Provider: Kristen Perez MD Referring Physician: Ubaldo FERNANDEZ; Exam Type: CA echo doppler color flow Study Info Indications - SHORT OF BREATH PPM Complete two-dimensional, color flow and Doppler transthoracic echocardiogram is performed with contrast to opacify the left ventricle and to improve the deliniation of the left ventricle endocardial borders. Contrast/Agitated Saline Contrast/Ag. Saline: Definity Amount: 2.00 ml Administered By: Yakelin Palafox [facility] Existing IV Access: Yes IV Access Condition: patent with no signs of infiltration Summary 1. Definity contrast administered improved wall motion interpretation. 2. Left ventricular chamber dimension is moderately enlarged. 3. Left ventricular systolic function is severely reduced, estimated at 30-35%. 4. There is moderate concentric increased left ventricular wall thickness. 5. The left ventricular diastolic function is abnormal. 6. E/e' 19 is elevated. 7. Linear artifact in right ventricle suggestive of catheter(s), pacemaker lead(s), or ICD lead(s). 8. Left atrial chamber dimension is moderately enlarged. 9. Right atrial chamber dimension is severely enlarged. 10. Linear artifact in the right atrium suggestive of catheter(s), pacemaker lead(s), or ICD lead(s). 11. There is mild aortic valve sclerosis. 12. There is mild mitral valve regurgitation. 13. No pulmonary hypertension, estimated pulmonary arterial systolic pressure is 28 mmHg. Left Ventricle E/e' 19 is elevated. Definity contrast administered improved wall motion interpretation. Left ventricular chamber dimension is moderately enlarged. Left ventricular systolic function is severely reduced, estimated at 30-35%. There is moderate concentric increased left ventricular wall thickness. The left ventricular diastolic function is abnormal. Right Ventricle Linear artifact in right ventricle suggestive of catheter(s), pacemaker lead(s), or ICD lead(s). Right ventricular chamber dimension is normal. Right ventricular systolic function is normal. Left Atria Left atrial chamber dimension is moderately enlarged. Right Atria Linear artifact in the right atrium suggestive of catheter(s), pacemaker lead(s), or ICD lead(s). Right atrial chamber dimension is severely enlarged. Aortic Valve The aortic valve is trileaflet. There is mild aortic valve sclerosis. There is no aortic valve stenosis. There is no aortic valve regurgitation. Pulmonic Valve There is no pulmonic regurgitation. Mitral Valve There is no mitral valve stenosis. There is mild mitral valve regurgitation. Tricuspid Valve There is no tricuspid valve regurgitation. No pulmonary hypertension, estimated pulmonary arterial systolic pressure is 28 mmHg. Pericardium/Pleural There is no pericardial effusion. Inferior Vena Cava Normal inferior vena cava with >50% collapse upon inspiration consistent with normal right atrial pressure, 5 mmHg. Aorta The aortic root size at the sinus of Valsalva is normal. Left Ventricular Outflow Tract Name Value
--- NOTE | ~2023-08-14 | XR_ITS ---
Portable chest x-ray Comparison: 03/16/2022 Clinical History: Cardiomyopathy Findings: Lungs are clear, without focal consolidation or pleural effusion. Cardiomediastinal silho uette is stable, with pacemaker device. Bones and soft tissues are unremarkable. Impression: Clear lungs. Pacemaker device. Reviewed, dictated and finalized at location M. RY DRYER OPERATOR Impression: Clear lungs. Pacemaker device.
--- NOTE | 2023-08-14 03:00 | ECG_ITS ---
Measurements Intervals [place] Rate: 118 P: DE: 0 QRS: -17 QRSD: 189 T: 173 QT: 372 QTc: 521 Interpretive Statements ELECTRONIC ATRIAL-VENTRICULAR PACEMAKER VENTRICULAR COUPLETS AND FREQUENT VENTRICULAR TRIPLETS LEFT BUNDLE BRANCH BLOCK BASELINE ARTIFACT- I, III ABNORMAL ECG COMPARED TO ECG 03/16/2022 05:56:59 VENTRICULAR COUPLETS AND FREQUENT VENTRICULAR TRIPLETS NOW PRESENT Electronically Signed On 08-14-2023 6:53:33 CYBER SECURITY ANALYST by Jonas Conner D.O.
--- NOTE | 2023-08-14 03:05 | ECG_ITS ---
Measurements Intervals [place] Rate: 82 P: 162 PA: 193 QRS: 259 QRSD: 170 T: 66 QT: 430 QTc: 503 Interpretive Statements ELECTRONIC ATRIAL PACEMAKER ELECTRONIC VENTRICULAR PACEMAKER NO FURTHER INTERPRETATION IS POSSIBLE ATYPICAL ECG COMPARED TO ECG 08/14/2023 03:03:00 VENTRICULAR ECTOPICS NOT PRESENT Electronically Signed On 08-14-2023 6:55:33 CREATIVE ENGAGEMENT DIRECTOR by Jonas Conner D.O.
--- NOTE | 2023-08-14 03:11 | ED.DIZZY ---
HPI - Dizziness General Chief Complaint: Dizziness Stated Complaint: symptomatic bradycardia Time Seen by Provider: 08/14/23 03:05 History of Present Illness HPI Narrative: Patient brought to the emergency department by EMS. He states he does not feel right . Feels lightheaded. He has a history of anxiety so was unsure if that was the cause. Symptoms started couple hours prior to arrival. Patient denies headache and chest pain. He has a pacer placed. Denies history of cardiac disease. Related Data Home Medications Medication Instructions Recorded Confirmed aspirin 81 mg capsule,delayed 81 mg PO DAILY 03/16/22 03/16/22 release atorvastatin 80 mg tablet 80 mg PO HS 03/16/22 03/16/22 blood sugar diagnostic (Accu-Chek 03/16/22 03/16/22 Guide test strips) buspirone 10 mg tablet 10 mg PO TID 03/16/22 03/16/22 cholecalciferol (vitamin D3) 25 25 mcg PO DAILY 03/16/22 03/16/22 mcg (1,000 unit) tablet (Vitamin D3) finasteride 5 mg tablet 5 mg PO DAILY 03/16/22 03/16/22 omeprazole 20 mg capsule,delayed 20 mg PO DAILY 03/16/22 03/16/22 release tamsulosin 0.4 mg capsule 0.4 mg PO HS 03/16/22 03/16/22 trazodone 50 mg tablet 50 mg PO HS 03/16/22 03/16/22 Allergies Allergy/AdvReac Type Severity Reaction Status Date / Time metformin Allergy Unknown Verified 03/16/22 07:37 Review of Systems Review of Systems: Review of systems negative except what is documented in the HPI [facility] Past Medical History Medical History (Updated 08/14/23 @ 05:58 by Thais Skinner MD) Anxiety CAD (coronary artery disease) Diabetes mellitus HTN (hypertension), benign Surgical History Surgical History (Updated 03/16/22 @ 13:43 by Omar Quiñonez MD) H/O arthroscopic knee surgery H/O shoulder surgery History of cervical spinal surgery History of lumbar surgery History of permanent cardiac pacemaker placement Family History Family History (Updated 03/16/22 @ 13:44 by Omar Quiñonez MD) Father CAD (coronary artery disease) Mother Diabetes mellitus Sibling Leukemia Other Unknown family medical history Social History Social History (Updated 03/16/22 @ 13:45 by Omar Quiñonez MD) Social History: Patient lives in assisted living in [place]. He is a patient at the [place] [facility]. He quit tobacco in 1979 after smoking half a pack a day for 20 years. Denies alcohol or drug use. Lives alone. He is DNR. He nominates his son to be the individual would make medical decisions for him if he is unable. Smoking status: Former smoker Tobacco type: cigarettes Alcohol intake: never Substance use: never Lack of Transportation: No Lack of Food: Never True Current Housing: I Have Housing Concerned About Future Housing: No Difficulty Paying Gas/Electric Bills: No Difficulty Paying for Meds: No Currently Unemployed: No Education: High School Diploma/GED Difficulty w/ Childcare or Family Care: No Spiritual care concerns: No Exam Narrative: GENERAL: Well-appearing, well-nourished, and in no acute distress. HEAD: Normocephalic, atraumatic. EYES: PERRLA and EOMI. ENT: Nares clear, no rhinorrhea or epistaxis. Mucous membranes moist. NECK: Supple. CHEST: Clear to auscultation. No respiratory distress. HEART: Irregular and bradycardic ABDOMEN: Soft, nontender, nondistended. EXTREMITIES: Normal range of motion. No edema. SKIN: Warm, dry, no rash. NEURO: No focal deficits. Alert and oriented x3. PSYCH: Normal mood and affect. Course Course Emergency Course: Heart rate slow and irregular. Palpated heart rate low 30s Atropine ordered Vital Signs Vital signs: Vital Signs Temperature 36.1 C L 08/14/23 03:01 Pulse Rate 85 08/14/23 03:01 Respiratory Rate 14 08/14/23 03:01 Blood Pressure 138/47 L 08/14/23 03:01 Pulse Oximetry 97 08/14/23 03:01 Oxygen Delivery Room Air 08/14/23 03:01 Temperature 36.1 C L 08/14/23 03:01 Pulse Rate 91
[2023-08-14] MEDS: ATROPINE SULFATE 1 MG/ML VIAL 0.4 MG IV PUSH (03:27)
[2023-08-14 03:32] LABS: Basophils Absolute Auto 0.1 K/mm3 (0.0-0.1); Basophils Percent Auto 0.5 % (0.2-1.2); Eosinophils Absolute Auto 0.2 K/mm3 (0-0.3); Hemoglobin 12.8 g/dL (14.0-18.0); Immature Granulocyte Absolute 0.03 K/mm3 (0.00-0.031); Immature Granulocyte Percent A 0.3 % (0-0.5); Lymphocytes Absolute Auto 1.36 K/mm3 (0.9-3.2); Lymphocytes Percent Auto 14.3 % (18.3-44.2); Mean Corpuscular Volume 93.7 fl (80-100); Mean Platelet Volume 11.3 fl (7.4-10.4); Monocytes Absolute Auto 0.9 K/mm3 (0.1-0.6); Monocytes Percent Auto 9.7 % (2.6-8.5); Neutrophils Percent Auto 73.2 % (45.5-73.1); Platelet Count Result 188 k/mm3 (150-375); Red Blood Count 4.27 M/mm3 (4.6-6.20); Red Cell Distribution Width 13.9 % (11.5-14.5); White Blood Count 9.5 K/mm3 (4.5-10.0)
[2023-08-14] MEDS: DOPamine 400 MG/D5W 250 ML 400 MG/250 ML BAG 9 MG IV CONT (03:33)
[2023-08-14] MEDS: ATROPINE SULFATE 1 MG/10 ML SYRINGE IV PUSH (03:33)
[2023-08-14 03:44] LABS: Alanine Aminotransferase 27 U/L (6-50); Albumin Level 3.9 g/dL (3.5-5.1); Alkaline Phosphatase 93 U/L (38-126); Anion Gap 10 mmol/L (8-16); Aspartate Amino Transferase 25 U/L (17-59); Blood Urea Nitrogen 32 mg/dL (9-20); Calcium 8.7 mg/dL (8.4-10.2); Carbon Dioxide 21 mmol/L (22-30); Chloride 104 mmol/L (98-107); Estimated CRCL calculation 37 ml/min; Estimated Glomerular Filt Rate 34; Glucose 166 mg/dL (65-110); Magnesium 2.1 mg/dL (1.6-2.3); Sodium 135 mmol/L (137-145)
[2023-08-14 03:59] LABS: Troponin I 0.099 ng/mL (0.000-0.034)
[2023-08-14] MEDS: ONDANSETRON INJ 4 MG/2 ML VIAL IV PUSH (04:02)
--- NOTE | 2023-08-14 05:49 | PC.NURSE ---
When pt arrived to ED pacemaker was not properly capturing. @0516 Dopamine was titrated to 5mcg/kg/min, at this time pt pacemaker started capturing properly. Pt now has no complaints.
[2023-08-14 07:27] LABS: Troponin I 0.078 ng/mL (0.000-0.034)
--- NOTE | 2023-08-14 07:29 | ADMGEN ---
This patient, Rob Aguiar Jr., was admitted to Intensive Care Unit-3. Patient/family oriented to hospital policies and general routines including ID bracelet, bed and alarms, visiting hours, pain management, procedures, bathroom and other care routines, personal items, smoking policy, room service/diet, and visiting hours. Information on how to activate the Rapid Response Team has been discussed. Patient/Family are encouraged to report perceived risks to care and to ask questions if they do not understand what they are told or what they should do.
--- NOTE | 2023-08-14 07:30 | PC.NURSE ---
Patient arrived to unit at 0710. This nurse gave report to Cleo CLINE.
[2023-08-14] MEDS: LACTATED RINGERS 1,000 ML 500 ML IV CONT (08:15)
--- NOTE | 2023-08-14 09:08 | PM.CNCAR ---
Assessment and Plan Assessment and plan (1) Pacemaker: Code(s): Z95.0 - Presence of cardiac pacemaker Status: Acute Assessment and Plan: Interrogated pacemaker not showing bradycardia. (2) Systolic dysfunction: Code(s): I51.9 - Heart disease, unspecified Status: Acute Assessment and Plan: Resume home medication including Coreg, Entresto, Jardiance. Obtain echo. Obtain records from [place] 2020 of [facility], echo, pacemaker insertion. 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 Start Amiodarone drip. Resume Coreg. (4) Dyslipidemia: Code(s): E78.5 - Hyperlipidemia, unspecified Status: Acute Assessment and Plan: On Atorvastatin. (5) HTN (hypertension), benign: Code(s): I10 - Essential (primary) hypertension Status: Acute Assessment and Plan: Stable. History of Present Illness History of Present Illness Consult date/time: 08/14/23 09:08 Reason For Visit: Bradycardia Narrative: 81 yr old man presented to ER due to SOB. I saw him in hospital in March 2022 but he did not follow up with me as he receives his care at [place] [facility]. ? 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 He is a poor historian. States he went to bed last night and at 1:30 am he woke up feeling sob. In ED it was noted he was having frequent ventricular ectopics and triplets but thought he was bradycardic and started him on Dopamine drip. He is currently without any chest pain or sob. Telemetry shows frequent ventricular ectopics. Reports that he relocated from [place] to [facility] in 2020. Then he relocated in 2021 to [facility] assisted living locally.? He can walk with his walker up to 1 block and he uses it for balance. Denies chest pain, sob, orthopnea, PND, edema, dizziness.? Review of Systems Review of Systems: All systems reviewed & are unremarkable except as noted in HPI and below Constitutional: Constitutional: Reports as per HPI, Denies chills and Denies fatigue Cardiovascular: Cardiovascular: Reports as per HPI, Denies chest pain, Denies irregular heart rhythm, Denies leg edema and Denies lightheadedness Respiratory: Respiratory: Reports as per HPI and Reports dyspnea Gastrointestinal: Gastrointestinal: Reports as per HPI and Denies abdominal pain Musculoskeletal: Musculoskeletal: Reports as per HPI Neurologic: Reports as per HPI, Denies dizziness and Denies syncope [facility] Past Medical History Medical History (Updated 08/14/23 @ 09:13 by Jonas Conner DO) Anxiety CAD (coronary artery disease) Diabetes mellitus HTN (hypertension), benign Surgical History Surgical History (Updated 03/16/22 @ 13:43 by Omar Quiñonez MD) H/O arthroscopic knee surgery H/O shoulder surgery History of cervical spinal surgery History of lumbar surgery History of permanent cardiac pacemaker placement Family History Family History (Updated 03/16/22 @ 13:44 by Omar Quiñonez MD) Father CAD (coronary artery disease) Mother Diabetes mellitus Sibling Leukemia Other Unknown family medical history Social History Social History (Updated 03/16/22 @ 13:45 by Omar Quiñonez MD) Social History: Patient lives in assisted living in [place]. He is a patient at the [place] [facility]. He quit tobacco in 1979 after smoking half a pack a day for 20 years. Denies alcohol or drug use. Lives alone. He is DNR. He nominates his son to be the individual would make medical decisions for him if he is unable. Smoking status: Former smoker Tobacco type: cigarettes Alcohol intake: never Substance use: never Lack of Transportation: No Lack of Food: Never True Current Housing: I Have Housing Concerned About Future Housing: No Difficulty Paying Gas/E
--- NOTE | 2023-08-14 09:16 | PM.IMHP ---
H&P: HPI History of Present Illness Date/Time: 08/14/23 09:16 Chief Complaint: Lightheadedness Narrative: 82-year-old male presented via EMS for symptoms of feeling lightheaded. Denies any headache. No chest pain or shortness of breath. He has a history of coronary artery disease diabetes and hypertension also has anxiety disorder. Is a former smoker no alcohol or drug use. He is status post pacemaker implantation for heart block in 2010. He has cardiomyopathy with ejection fraction is 35-40%. In the ER he was noted to be bradycardic and low 30s. Atropine was given without much response and hence dopamine drip was started. Patient has since been admitted to the ICU for further treatment. Laboratory workup revealed creatinine 1.9 troponin 0.099. Pacemaker interrogation has been done and does not show any bradycardia. On Coreg at home. Cardiology has been consulted. Ventricular ectopic beats were found and hence has been started on amiodarone drip per Cardiology recommendation. He is admitted for further evaluation management Review of Systems Review of Systems: - CONSTITUTIONAL: Denies weight loss, fever and chills. - HEENT: Denies changes in vision and hearing - RESPIRATORY: Denies SOB and cough. - CV: Denies palpitations and CP. - GI: Denies abdominal pain, nausea, vomiting and diarrhea. - : Denies dysuria and urinary frequency. - MSK: Denies myalgia and joint pain. - SKIN: Denies rash and pruritus. - NEUROLOGICAL: Denies headache and syncope. - PSYCHIATRIC: Denies recent changes in mood. Denies anxiety and depression. [facility] Past Medical History Medical History (Updated 08/14/23 @ 09:13 by Jonas Conner DO) Anxiety CAD (coronary artery disease) Diabetes mellitus HTN (hypertension), benign Surgical History Surgical History (Updated 03/16/22 @ 13:43 by Omar Quiñonez MD) H/O arthroscopic knee surgery H/O shoulder surgery History of cervical spinal surgery History of lumbar surgery History of permanent cardiac pacemaker placement Family History Family History (Updated 03/16/22 @ 13:44 by Omar Quiñonez MD) Father CAD (coronary artery disease) Mother Diabetes mellitus Sibling Leukemia Other Unknown family medical history Social History Social History (Updated 03/16/22 @ 13:45 by Omar Quiñonez MD) Social History: Patient lives in assisted living in [place]. He is a patient at the [facility]. He quit tobacco in 1979 after smoking half a pack a day for 20 years. Denies alcohol or drug use. Lives alone. He is DNR. He nominates his son to be the individual would make medical decisions for him if he is unable. Smoking status: Former smoker Tobacco type: cigarettes Alcohol intake: never Substance use: never Lack of Transportation: No Lack of Food: Never True Current Housing: I Have Housing Concerned About Future Housing: No Difficulty Paying Gas/Electric Bills: No Difficulty Paying for Meds: No Currently Unemployed: No Education: High School Diploma/GED Difficulty w/ Childcare or Family Care: No Spiritual care concerns: No Meds Home Medications and Allergies Home Medications Medication Instructions Recorded Confirmed Type aspirin 81 mg capsule,delayed 81 mg PO DAILY 03/16/22 08/14/23 History release atorvastatin 80 mg tablet 80 mg PO HS 03/16/22 08/14/23 History blood sugar diagnostic (Accu-Chek 03/16/22 08/14/23 History Guide test strips) buspirone 10 mg tablet 10 mg PO TID 03/16/22 08/14/23 History cholecalciferol (vitamin D3) 25 25 mcg PO DAILY 03/16/22 08/14/23 History mcg (1,000 unit) tablet (Vitamin D3) finasteride 5 mg tablet 5 mg PO DAILY 03/16/22 08/14/23 History omeprazole 20 mg capsule,delayed 20 mg PO DAILY 03/16/22 08/14/23 History release tamsulosin 0.4 mg capsule 0.4 mg PO HS 03/16/22 08/14/23 History trazodone 50 mg tablet 50 mg PO HS 03/16/22 08/14/23 History sacubitril 24 mg-valsa
[2023-08-14] MEDS: AMIODARONE 150 MG/D5W 100 ML 150 MG/100 ML BAG 600 MG IV CONT (09:40)
[2023-08-14] MEDS: carvediloL 3.125 MG TABLET PO ×2 (09:43→19:56)
[2023-08-14] MEDS: EMPAGLIFLOZIN 10 MG TABLET PO (09:43)
[2023-08-14] MEDS: AMIODARONE 360 MG/D5W 200 ML 360 MG/200 ML BAG 33.33 MG IV CONT (09:52)
[2023-08-14] MEDS: PERFLUTREN LIPID MICROSPHERES 1.5 ML VIAL DILUTED TO 10 ML TOTAL VOLUME IV PUSH (12:20)
--- NOTE | 2023-08-14 12:30 | WPDCNINT ---
Assessment and Plan Assessment and plan (1) Ventricular ectopics: Code(s): I49.3 - Ventricular premature depolarization Status: Acute Assessment and Plan: Patient with frequent ventricular ectopic beats, PVCs with triplets and couplets could be causing his dizziness and tiredness -patient has been started on amiodarone infusion by Cardiology -also started on p.o. Coreg by Cardiology (2) Pacemaker: Code(s): Z95.0 - Presence of cardiac pacemaker Status: Acute Assessment and Plan: Pacemaker has been interrogated not showing any bradycardia (3) Systolic dysfunction: Code(s): I51.9 - Heart disease, unspecified Status: Acute Assessment and Plan: Patient has a history systolic dysfunction with EF of 35-40% on echo done in March 2022. -patient was seen by Dr. Conner, in 2021 and did not follow-up with him. Patient states he sees a doctor in [place] at [facility]. -continue Entresto, Coreg per Cardiology (4) Dyslipidemia: Code(s): E78.5 - Hyperlipidemia, unspecified Status: Acute Assessment and Plan: Continue atorvastatin (5) HTN (hypertension), benign: Code(s): I10 - Essential (primary) hypertension Status: Acute Assessment and Plan: Blood pressures are stable, continue medications as above Plan DVT prophylaxis: Lovenox Stress ulcer prophylaxis: Not indicated Nutrition: Heart healthy diet Code Status: Do Not resuscitate Critical Care Time Spent: 48 minutes Due to a high probability of clinically significant, life threatening deterioration, the patient required my highest level of preparedness to intervene emergently and I personally spent this critical care time directly and personally managing the patient. This critical care time included obtaining a history; examining the patient; pulse oximetry; ordering and review of studies; arranging urgent treatment with development of a management plan; evaluation of patient's response to treatment; frequent reassessment; and discussions with other providers. It was exclusive of separately billable procedures and treating other patients and teaching time. Please see Assessment and Plan section and the rest of the note for further information on patient assessment and treatment This dictation may have been done utilizing a voice recognition system. Attempts have been made to correct errors. However, there may be uncorrected grammatical, spelling, and recognitions errors present. [employer] Hand Consult Note Consult date: 08/14/23 Reason for consult: Dizziness, bradycardia HPI: Rob Aguiar Jr. is a 82 year old male with past medical history of anxiety, says coronary artery disease, diabetes, essential hypertension, presented the ED on 08/14/2023 in the early hours complaining of not feeling right, lightheaded and dizzy. His symptoms started couple of hours prior to arrival in the ED. heart rates were noted to be in the 30s in the ER which was most likely frequent ventricular ectopic beats and triplets but was thought to be bradycardia. Patient was started on the dopamine, denies any chest pain or shortness of breath. Cardiology was called from the ER , and was transferred to the ICU for further management Pertinent labs showed a creatinine of 1.90, BUN of 32. Troponin 0.099 and 0.078 chest x-ray showed clear lungs, pacemaker device. Patient seen and examined the ICU, patient is awake, alert, oriented x3, follows simple commands and answers to questions appropriately. In the ICU patient was having frequent ventricular ectopic beats, denies any chest pain or shortness of breath. Upon was discontinued. Cardiology was called and was at bedside, wound to start patient on amiodarone infusion and p.o. Coreg, which was started. Patient is hemodynamically stable, afebrile with adequate urine output. Review of Systems Review of Systems: All systems reviewed & are unremarkable except as noted in HPI and below PMF
[2023-08-14 12:45] LABS: Glucose Point of Care 169 mg/dl (65-105)
--- NOTE | 2023-08-14 12:52 | IVDEFINITY ---
Prior to administration of IV Definity the patient was educated on the risks and benefits of the imaging enhancing agent including potential adverse side effects. The patient verbalized understanding. Allergies were verified. No exclusion criteria were identified and at least one of the following inclusion criteria were met: 1) physician request, 2) patient technically difficult to image (per the [place] [employer]chocardi[employer] guidelines of two or more segments not discernable within the apical view), or 3) questionable left ventricular function. ?
[2023-08-14 14:03] LABS: Appearance Urine Clear (Clear); Bacteria Urine None Seen /hpf; Bilirubin Urine Negative (Negative); Blood Urine Negative (Negative); Color Urine Yellow (Yellow); Glucose Urine UA 3+ mg/dL (Negative); Ketones Urine Negative (Negative); Leukocyte Esterase Ur Negative LEU/UL (Negative); Nitrate Urine Negative (Negative); Non Pathogenic Casts 0-2; Protein Urine 2+ mg/dL (Negative); RBC Urine 0-2 /hpf (0-2); Specific Grav Ur 1.023 (1.001-1.035); Squamous Epithelial Cell Urine None seen /hpf (Few); Urobilinogen Urine 0.2 mg/dL (<2.0); WBC Urine 0-5 /hpf
[2023-08-14 14:12] LABS: Add Urine Microscopic? YES
[2023-08-14] MEDS: AMIODARONE 360 MG/D5W 200 ML 360 MG/200 ML BAG 16.67 MG IV CONT (15:33)
[2023-08-14 16:42] LABS: Glucose Point of Care 200 mg/dl (65-105)
[2023-08-14] MEDS: SACUBITRIL/VALSARTAN 12-13 MG TABLET 1 TAB PO (19:56)
[2023-08-14 19:59] LABS: Glucose Point of Care 166 mg/dl (65-105)
[2023-08-14 19:59] LABS: Glucose Point of Care 162 mg/dl (65-105)
--- NOTE | 2023-08-14 20:47 | ECG_ITS ---
Measurements Intervals [place] Rate: 102 P: 68 GA: 205 QRS: -15 QRSD: 198 T: -5 QT: 445 QTc: 580 Interpretive Statements ELECTRONIC ATRIAL PACEMAKER WITH INHIBITION ELECTRONIC VENTRICULAR PACEMAKER VENTRICULAR COUPLETS, VENTRICULAR PREMATURE COMPLEXES, FUSION COMPLEX POSSIBLE LEFT ATRIAL ENLARGEMENT ABNORMAL ECG COMPARED TO ECG 08/14/2023 05:39:08 VENTRICLAR ECTOPICS NOW PRESENT Electronically Signed On 08-15-2023 6:34:56 MEDICAL LAB DIRECTOR by Jonas Conner D.O.
--- NOTE | 2023-08-14 22:43 | PC.NURSE ---
Recieved patient from [facility] at 2100
[2023-08-15] VITALS (15 sets, daily range): BP systolic 120–151; BP diastolic 64–74; PULSE 64–103; RESP 18–20; TEMP 35.8–36.5; O2SAT 95–100; BMI 31.1
[2023-08-15] MEDS: AMIODARONE 360 MG/D5W 200 ML 360 MG/200 ML BAG 16.67 MG IV CONT ×2 (03:53→16:06)
[2023-08-15 05:24] LABS: Basophils Percent Auto 0.3 % (0.2-1.2); Eosinophils Absolute Auto 0.1 K/mm3 (0-0.3); Eosinophils Percent Auto 0.9 % (0-4.4); Hematocrit 40.3 % (42.0-52.0); Hemoglobin 12.7 g/dL (14.0-18.0); Immature Granulocyte Absolute 0.05 K/mm3 (0.00-0.031); Immature Granulocyte Percent A 0.4 % (0-0.5); Lymphocytes Absolute Auto 1.29 K/mm3 (0.9-3.2); Lymphocytes Percent Auto 10.9 % (18.3-44.2); Mean Corpuscular HGB Conc 31.5 g/dl (32-36); Mean Corpuscular Hemoglobin 29.7 pg (26-34); Mean Corpuscular Volume 94.2 fl (80-100); Mean Platelet Volume 11.4 fl (7.4-10.4); Monocytes Absolute Auto 1.3 K/mm3 (0.1-0.6); Monocytes Percent Auto 11.3 % (2.6-8.5); Neutrophils Percent Auto 76.2 % (45.5-73.1); Platelet Count Result 191 k/mm3 (150-375); Red Blood Count 4.28 M/mm3 (4.6-6.20); Red Cell Distribution Width 13.7 % (11.5-14.5); White Blood Count 11.9 K/mm3 (4.5-10.0)
[2023-08-15 05:36] LABS: Alanine Aminotransferase 50 U/L (6-50); Albumin Level 3.8 g/dL (3.5-5.1); Alkaline Phosphatase 69 U/L (38-126); Anion Gap 10 mmol/L (8-16); Aspartate Amino Transferase 45 U/L (17-59); Bilirubin,Total 0.8 mg/dL (0.2-1.3); Blood Urea Nitrogen 33 mg/dL (9-20); Calcium 8.5 mg/dL (8.4-10.2); Carbon Dioxide 21 mmol/L (22-30); Chloride 102 mmol/L (98-107); Estimated CRCL calculation 35 ml/min; Estimated Glomerular Filt Rate 34; Glucose 169 mg/dL (65-110); Phosphorus 4.2 mg/dL (2.5-4.5); Potassium 5.4 mmol/L (3.4-5.0); Sodium 133 mmol/L (137-145)
--- NOTE | 2023-08-15 07:37 | PM.PNCARD ---
Progress Note: A&P Assessment and Plan (1) Pacemaker: Code(s): Z95.0 - Presence of cardiac pacemaker Status: Acute Assessment and Plan: Interrogated pacemaker not showing bradycardia. (2) Systolic dysfunction: Code(s): I51.9 - Heart disease, unspecified Status: Acute Assessment and Plan: Resumed home medication including Coreg, Entresto, Jardiance. 08/14/23 Echo: EF 30-35% globally reduced, mod LVE, mod LVH, diastolic dysfunction (E/e' 19), mod LAE, severe CHELSY, mild MR. Obtain records from [place] 2020 of [facility], echo, pacemaker insertion. Start Lasix 40 mg PO daily. 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 Probably due to cardiomyopathy. Started Amiodarone drip, will continue drip for now as he is still having a lot of ventricular ectopics. Check EKG QT interval. Resumed Coreg. Check TSH. (4) Dyslipidemia: Code(s): E78.5 - Hyperlipidemia, unspecified Status: Acute Assessment and Plan: On Atorvastatin. (5) HTN (hypertension), benign: Code(s): I10 - Essential (primary) hypertension Status: Acute Assessment and Plan: Stable. Subjective Date/time seen: 08/15/23 07:37 Interval history: Denies chest pain or sob today. Exam Const: General: cooperative, healthy appearing and comfortable Orientation/consciousness: oriented to person, oriented to place and oriented to time Resp: Auscultation: clear to auscultation bilaterally, no crackles, no rales, no rhonchi and no wheezes Cardio: Rate: regular rate Rhythm: abnormal rhythm Heart sounds: no murmurs Peripheral pulses: dorsalis pedis present Neuro: General: oriented to person, oriented to place and oriented to time Extrem: Right lower extremity: no edema Left lower extremity: no edema Objective Data Vital Signs Vital Signs: Vital Signs - 24 hr 08/14/23 07:57 08/14/23 09:40 08/14/23 09:43 Temperature Pulse Rate 113 H 119 H 111 H Respiratory Rate Blood Pressure 144/74 H 138/92 H Pulse Oximetry Oxygen Delivery 08/14/23 09:52 08/14/23 08:00 08/14/23 10:00 Temperature Pulse Rate 103 H 110 H 98 Respiratory Rate 14 16 Blood Pressure 116/65 128/50 L 137/71 Pulse Oximetry 99 100 Oxygen Delivery 08/14/23 08:00 08/14/23 10:00 08/14/23 12:00 Temperature Pulse Rate 121 H 98 111 H Respiratory Rate Blood Pressure Pulse Oximetry Oxygen Delivery 08/14/23 12:00 08/14/23 14:00 08/14/23 15:33 Temperature Pulse Rate 111 H 106 H 74 Respiratory Rate 19 Blood Pressure 113/66 130/83 Pulse Oximetry 100 Oxygen Delivery 08/14/23 16:00 08/14/23 16:00 08/14/23 18:00 Temperature 98.1 F Pulse Rate 95 82 103 H Respiratory Rate 17 Blood Pressure 119/58 L Pulse Oximetry 100 Oxygen Delivery 08/14/23 19:56 08/14/23 20:00 08/14/23 20:00 Temperature Pulse Rate 103 H 58 L 58 L Respiratory Rate 17 Blood Pressure Pulse Oximetry 100 Oxygen Delivery Room Air 08/14/23 21:13 08/14/23 22:00 08/14/23 23:15 Temperature 97.4 F L Pulse Rate 96 100 111 H Respiratory Rate 20 Blood Pressure 127/56 L Pulse Oximetry 97 Oxygen Delivery 08/15/23 00:00 08/15/23 00:00 08/15/23 02:00 Temperature Pulse Rate 102 H 83 Respiratory Rate Blood Pressure Pulse Oximetry Oxygen Delivery Room Air 08/15/23 03:33 08/15/23 03:53 08/15/23 03:55 Temperature 97 F L Pulse Rate 91 91 103 H Respiratory Rate 20 Blood Pressure 151/64 H 151/64 H 151/64 H Pulse Oximetry 100 Oxygen Delivery 08/15/23 04:00 Temperature Pulse Rate 87 Respiratory Rate Blood Pressure Pulse Oximetry Oxygen Delivery Intake/Output Intake/Output: Intake & Output 08/13/23 08/13/23 08/14/23 08/15/23 00:59 23:59 23:59 23:59 Intake Total 9
[2023-08-15] MEDS: FUROSEMIDE 40 MG TABLET PO (08:34)
[2023-08-15] MEDS: carvediloL 3.125 MG TABLET PO ×2 (08:34→21:09)
[2023-08-15] MEDS: EMPAGLIFLOZIN 10 MG TABLET PO (08:34)
[2023-08-15] MEDS: ENOXAPARIN 30 MG/0.3 ML SYRINGE SUB-Q (08:34)
[2023-08-15] MEDS: SACUBITRIL/VALSARTAN 12-13 MG TABLET 1 TAB PO ×2 (08:34→21:10)
[2023-08-15 09:02] LABS: Glucose Point of Care 182 mg/dl (65-105)
[2023-08-15 11:41] LABS: Glucose Point of Care 174 mg/dl (65-105)
--- NOTE | 2023-08-15 15:35 | PM.IMPN ---
Progress Note: A&P Assessment and Plan (1) Bradycardia: Code(s): R00.1 - Bradycardia, unspecified Status: Acute (2) Light-headed: Code(s): R42 - Dizziness and giddiness Status: Acute (3) Renal insufficiency: Code(s): N28.9 - Disorder of kidney and ureter, unspecified Status: Acute (4) Diabetes mellitus: Code(s): E11.9 - Type 2 diabetes mellitus without complications Status: Acute (5) HTN (hypertension), benign: Code(s): I10 - Essential (primary) hypertension Status: Acute (6) Elevated troponin: Code(s): R77.8 - Other specified abnormalities of plasma proteins Status: Acute (7) History of permanent cardiac pacemaker placement: Code(s): Z95.0 - Presence of cardiac pacemaker Status: Acute (8) Systolic dysfunction: Code(s): I51.9 - Heart disease, unspecified Status: Acute (9) Dyslipidemia: Code(s): E78.5 - Hyperlipidemia, unspecified Status: Acute Plan Symptomatic bradycardia with lightheadedness heart rate down in 30s received atropine and placed on dopamine drip. Upon interrogation patient noted to have frequent ventricular ectopic beats and no bradycardia was noted. EKG reviewed with ventricular couplets and frequent ventricular triplets underlying left bundle branch block patient has been started on amiodarone per Cardiology also on Coreg. No bradycardia was noted on interrogation Mild JONE on CKD stage 3 creatinine 1.9 baseline around 1.5 2021 Status post pacemaker implantation in 2019 for heart block Coronary artery disease Cardiomyopathy with ejection fraction 35-40% in the past repeat echo with EF 30-35% started on Lasix Hypertension Hyperlipidemia Anxiety disorder BPH DVT prophylaxis Lovenox Code status do not resuscitate Subjective Date/time seen: 08/15/23 15:35 Interval history: No overnight events denies any chest pain or shortness of breath Review of Systems Review of Systems: All systems reviewed & are unremarkable except as noted in HPI and below Exam Narrative: GENERAL: Well-appearing, well-nourished, and in no acute distress. HEAD: Normocephalic, atraumatic. EYES: PERRLA and EOMI. ENT: Nares clear, no rhinorrhea or epistaxis.? Mucous membranes moist. NECK: Supple. CHEST: Clear to auscultation.? No respiratory distress. HEART: Irregular paced rhythm ABDOMEN: Soft, nontender, nondistended. EXTREMITIES: Normal range of motion.? No edema. SKIN: Warm, dry, no rash. NEURO: No focal deficits.? Alert and oriented x3. PSYCH: Normal mood and affect. Objective Data Vital Signs Vital Signs: Vital Signs - 24 hr 08/14/23 16:00 08/14/23 16:00 08/14/23 18:00 Temperature 98.1 F Pulse Rate 95 82 103 H Respiratory Rate 17 Blood Pressure 119/58 L Pulse Oximetry 100 Oxygen Delivery 08/14/23 19:56 08/14/23 20:00 08/14/23 20:00 Temperature Pulse Rate 103 H 58 L 58 L Respiratory Rate 17 Blood Pressure Pulse Oximetry 100 Oxygen Delivery Room Air 08/14/23 21:13 08/14/23 22:00 08/14/23 23:15 Temperature 97.4 F L Pulse Rate 96 100 111 H Respiratory Rate 20 Blood Pressure 127/56 L Pulse Oximetry 97 Oxygen Delivery 08/15/23 00:00 08/15/23 00:00 08/15/23 02:00 Temperature Pulse Rate 102 H 83 Respiratory Rate Blood Pressure Pulse Oximetry Oxygen Delivery Room Air 08/15/23 03:33 08/15/23 03:53 08/15/23 03:55 Temperature 97 F L Pulse Rate 91 91 103 H Respiratory Rate 20 Blood Pressure 151/64 H 151/64 H 151/64 H Pulse Oximetry 100 Oxygen Delivery 08/15/23 04:00 08/15/23 07:58 08/15/23 08:00 Temperature 96.5 F L Pulse Rate 87 71 Respiratory Rate 20 Blood Pressure 131/65 Pulse Oximetry 98 Oxygen Delivery Room Air 08/15/23 08:00 08/15/23 10:00 08/15/23 12:00 Temperature 97.6 F Pulse Rate 75 80 64 Respiratory Rate 20 Blood Pressure 139/67 Pulse Oximetry 98 Oxygen D
[2023-08-15 15:47] LABS: Glucose Point of Care 167 mg/dl (65-105)
[2023-08-15] MEDS: busPIRone HCL 10 MG TABLET PO (16:05)
[2023-08-15 17:17] LABS: SARS-CoV-2 RNA PCR Negative (Negative)
[2023-08-15] MEDS: ATORVASTATIN 40 MG TABLET 80 MG PO (21:09)
[2023-08-15] MEDS: TAMSULOSIN HCL 0.4 MG CAPSULE PO (21:10)
[2023-08-16] VITALS (18 sets, daily range): BP systolic 118–144; BP diastolic 47–90; PULSE 43–88; RESP 16–20; TEMP 35.6–36.6; O2SAT 97–100
[2023-08-16 00:10] LABS: Glucose Point of Care 137 mg/dl (65-105)
[2023-08-16] MEDS: busPIRone HCL 10 MG TABLET PO ×3 (00:27→16:13)
[2023-08-16] MEDS: AMIODARONE 360 MG/D5W 200 ML 360 MG/200 ML BAG 16.67 MG IV CONT (03:55)
[2023-08-16 05:18] LABS: Alanine Aminotransferase 55 U/L (6-50); Albumin Level 3.7 g/dL (3.5-5.1); Alkaline Phosphatase 61 U/L (38-126); Anion Gap 10 mmol/L (8-16); Aspartate Amino Transferase 43 U/L (17-59); Blood Urea Nitrogen 34 mg/dL (9-20); Calcium 8.8 mg/dL (8.4-10.2); Carbon Dioxide 20 mmol/L (22-30); Chloride 104 mmol/L (98-107); Estimated CRCL calculation 37 ml/min; Estimated Glomerular Filt Rate 34; Glucose 126 mg/dL (65-110); Potassium 5.1 mmol/L (3.4-5.0); Sodium 134 mmol/L (137-145)
[2023-08-16 06:13] LABS: Basophils Absolute Auto 0.1 K/mm3 (0.0-0.1); Basophils Percent Auto 0.4 % (0.2-1.2); Eosinophils Absolute Auto 0.2 K/mm3 (0-0.3); Eosinophils Percent Auto 1.2 % (0-4.4); Hematocrit 42.9 % (42.0-52.0); Hemoglobin 13.6 g/dL (14.0-18.0); Immature Granulocyte Absolute 0.08 K/mm3 (0.00-0.031); Immature Granulocyte Percent A 0.6 % (0-0.5); Lymphocytes Percent Auto 8.5 % (18.3-44.2); Mean Corpuscular HGB Conc 31.7 g/dl (32-36); Mean Corpuscular Hemoglobin 29.9 pg (26-34); Mean Corpuscular Volume 94.3 fl (80-100); Mean Platelet Volume 11.1 fl (7.4-10.4); Monocytes Absolute Auto 1.2 K/mm3 (0.1-0.6); Monocytes Percent Auto 8.4 % (2.6-8.5); Neutrophils Absolute Auto 11.4 K/mm3 (1.3-6.7); Neutrophils Percent Auto 80.9 % (45.5-73.1); Platelet Count Result 201 k/mm3 (150-375); Red Blood Count 4.55 M/mm3 (4.6-6.20); Red Cell Distribution Width 13.6 % (11.5-14.5); White Blood Count 14.1 K/mm3 (4.5-10.0)
--- NOTE | 2023-08-16 06:47 | ECG_ITS ---
Measurements Intervals [place] Rate: 65 P: 117 [place]: 193 QRS: 267 QRSD: 178 T: 77 QT: 509 QTc: 530 Interpretive Statements ELECTRONIC ATRIAL PACEMAKER ELECTRONIC VENTRICULAR PACEMAKER NO FURTHER INTERPRETATION IS POSSIBLE ATYPICAL ECG COMPARED TO ECG 08/14/2023 20:51:33 VENTRICULAR ECTOPIES RESOLVED Electronically Signed On 08-16-2023 8:11:09 ZIGZAG MACHINE OPERATOR by Jonas Conner D.O.
--- NOTE | 2023-08-16 07:56 | PM.PNCARD ---
Progress Note: A&P Assessment and Plan (1) Pacemaker: Code(s): Z95.0 - Presence of cardiac pacemaker Status: Acute Assessment and Plan: Interrogated pacemaker not showing bradycardia. (2) Systolic dysfunction: Code(s): I51.9 - Heart disease, unspecified Status: Acute Assessment and Plan: Resumed home medication including Coreg, Entresto, Jardiance. 08/14/23 Echo: EF 30-35% globally reduced, mod LVE, mod LVH, diastolic dysfunction (E/e' 19), mod LAE, severe CHELSY, mild MR. Obtain records from [place] 2020 of [facility], echo, pacemaker insertion. Unable to obtain records thus far. Started Lasix 40 mg PO daily. Not on Spironolactone due to high potassium. 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 Probably due to cardiomyopathy. Started Amiodarone drip, will continue drip for now as he is still having a lot of ventricular ectopics. Check EKG QT interval. Resumed Coreg. Stop Amiodarone drip. Start Amiodarone 200 mg PO BID. (4) Dyslipidemia: Code(s): E78.5 - Hyperlipidemia, unspecified Status: Acute Assessment and Plan: On Atorvastatin. (5) HTN (hypertension), benign: Code(s): I10 - Essential (primary) hypertension Status: Acute Assessment and Plan: Stable. Subjective Date/time seen: 08/16/23 07:56 Interval history: Denies chest pain or sob today. Exam Const: General: cooperative, healthy appearing and comfortable Orientation/consciousness: oriented to person, oriented to place and oriented to time Resp: Auscultation: clear to auscultation bilaterally, no crackles, no rales, no rhonchi and no wheezes Cardio: Rate: regular rate Rhythm: regular rhythm Heart sounds: no murmurs Peripheral pulses: dorsalis pedis present Neuro: General: oriented to person, oriented to place and oriented to time Extrem: Right lower extremity: no edema Left lower extremity: no edema Objective Data Vital Signs Vital Signs: Vital Signs - 24 hr 08/15/23 07:58 08/15/23 08:00 08/15/23 08:00 Temperature 96.5 F L Pulse Rate 71 75 Respiratory Rate 20 Blood Pressure 131/65 Pulse Oximetry 98 Oxygen Delivery Room Air 08/15/23 10:00 08/15/23 12:00 08/15/23 12:00 Temperature 97.6 F Pulse Rate 80 64 82 Respiratory Rate 20 Blood Pressure 139/67 Pulse Oximetry 98 Oxygen Delivery 08/15/23 12:00 08/15/23 14:00 08/15/23 16:00 Temperature Pulse Rate 86 Respiratory Rate Blood Pressure Pulse Oximetry Oxygen Delivery Room Air Room Air 08/15/23 16:00 08/15/23 16:00 08/15/23 20:48 Temperature 97.7 F Pulse Rate 88 95 Respiratory Rate 20 Blood Pressure 126/74 Pulse Oximetry 100 95 Oxygen Delivery Room Air 08/15/23 20:00 08/15/23 21:09 08/15/23 20:00 Temperature 97.7 F Pulse Rate 65 65 76 Respiratory Rate 18 Blood Pressure 120/65 Pulse Oximetry 97 Oxygen Delivery 08/16/23 00:00 08/16/23 00:00 08/16/23 01:33 Temperature 97.9 F Pulse Rate 84 73 73 Respiratory Rate 18 Blood Pressure 142/80 H Pulse Oximetry 98 Oxygen Delivery 08/16/23 03:55 08/16/23 04:22 08/16/23 04:00 Temperature 97.6 F Pulse Rate 64 63 Respiratory Rate 18 Blood Pressure 134/61 Pulse Oximetry 98 Oxygen Delivery Room Air 08/16/23 07:38 Temperature 96.1 F L Pulse Rate 63 Respiratory Rate 20 Blood Pressure 135/65 Pulse Oximetry 99 Oxygen Delivery Intake/Output Intake/Output: Intake & Output 08/13/23 08/14/23 08/15/23 08/16/23 23:59 23:59 23:59 23:59 Intake Total 925 1130 550 Output Total 350 300 500 Balance 575 830 50 Meds/Results Medications: Active Medications Generic Name Dose Route Start Last Admin Trade Name Freq PRN Reason Stop Dose Admin Aspirin 81 mg 08/16/23 09:00 Aspirin 81 Mg Enteric Ta
[2023-08-16] MEDS: SACUBITRIL/VALSARTAN 12-13 MG TABLET 1 TAB PO ×2 (08:36→20:45)
[2023-08-16] MEDS: CHOLECALCIFEROL 1,000 UNITS TABLET 1000 UNITS PO (08:36)
[2023-08-16] MEDS: FUROSEMIDE 40 MG TABLET PO (08:37)
[2023-08-16] MEDS: carvediloL 3.125 MG TABLET PO ×2 (08:37→20:44)
[2023-08-16] MEDS: AMIODARONE HCL 200 MG TABLET PO ×2 (08:37→16:13)
[2023-08-16] MEDS: ASPIRIN 81 MG ENTERIC TABLET PO (08:37)
[2023-08-16] MEDS: FINASTERIDE 5 MG TABLET PO (08:37)
[2023-08-16] MEDS: ENOXAPARIN 40 MG/0.4 ML SYRINGE SUB-Q (08:38)
[2023-08-16] MEDS: EMPAGLIFLOZIN 10 MG TABLET PO (08:38)
[2023-08-16 09:11] LABS: Glucose Point of Care 138 mg/dl (65-105)
[2023-08-16 13:46] LABS: Glucose Point of Care 159 mg/dl (65-105)
--- NOTE | 2023-08-16 16:29 | PC.NURSE ---
On 08/16/23, the student, Ermelinda [facility], provided care and completed [facility] documentation on this patient. I have reviewed the student's documentation and agree with the findings.
[2023-08-16 16:46] LABS: Glucose Point of Care 149 mg/dl (65-105)
--- NOTE | 2023-08-16 18:02 | PM.IMPN ---
Progress Note: A&P Assessment and Plan (1) Bradycardia: Code(s): R00.1 - Bradycardia, unspecified Status: Acute (2) Light-headed: Code(s): R42 - Dizziness and giddiness Status: Acute (3) Renal insufficiency: Code(s): N28.9 - Disorder of kidney and ureter, unspecified Status: Acute (4) Diabetes mellitus: Code(s): E11.9 - Type 2 diabetes mellitus without complications Status: Acute (5) HTN (hypertension), benign: Code(s): I10 - Essential (primary) hypertension Status: Acute (6) Elevated troponin: Code(s): R77.8 - Other specified abnormalities of plasma proteins Status: Acute (7) History of permanent cardiac pacemaker placement: Code(s): Z95.0 - Presence of cardiac pacemaker Status: Acute (8) Systolic dysfunction: Code(s): I51.9 - Heart disease, unspecified Status: Acute (9) Dyslipidemia: Code(s): E78.5 - Hyperlipidemia, unspecified Status: Acute (10) Leucocytosis: Code(s): D72.829 - Elevated white blood cell count, unspecified Status: Acute Plan Symptomatic bradycardia with lightheadedness heart rate down in 30s received atropine and placed on dopamine drip. Upon interrogation patient noted to have frequent ventricular ectopic beats and no bradycardia was noted. EKG reviewed with ventricular couplets and frequent ventricular triplets underlying left bundle branch block patient has been started on amiodarone per Cardiology also on Coreg. No bradycardia was noted on interrogation Leukocytosis. 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 Review of Systems Review of Systems: - CONSTITUTIONAL: Denies weight loss, fever and chills. - HEENT: Denies changes in vision and hearing - RESPIRATORY: Denies SOB and cough. - CV: Denies palpitations and CP. - GI: Denies abdominal pain, nausea, vomiting and diarrhea. - : Denies dysuria and urinary frequency. - MSK: Denies myalgia and joint pain. - SKIN: Denies rash and pruritus. - NEUROLOGICAL: Denies headache and syncope. - PSYCHIATRIC: Denies recent changes in mood. Denies anxiety and depression. All systems reviewed & are unremarkable except as noted in HPI and below Exam Narrative: GENERAL: Well-appearing, well-nourished, and in no acute distress. HEAD: Normocephalic, atraumatic. EYES: PERRLA and EOMI. ENT: Nares clear, no rhinorrhea or epistaxis.? Mucous membranes moist. NECK: Supple. CHEST: Clear to auscultation.? No respiratory distress. HEART: Irregular paced rhythm ABDOMEN: Soft, nontender, nondistended. EXTREMITIES: Normal range of motion.? No edema. SKIN: Warm, dry, no rash. NEURO: No focal deficits.? Alert and oriented x3. PSYCH: Normal mood and affect. Objective Data Vital Signs Vital Signs: Vital Signs - 24 hr 08/15/23 20:48 08/15/23 20:00 08/15/23 21:09 Temperature 97.7 F Pulse Rate 65 65 Respiratory Rate 18 Blood Pressure 120/65 Pulse Oximetry 95 97 Oxygen Delivery Room Air 08/15/23 20:00 08/16/23 00:00 08/16/23 00:00 Temperature 97.9 F Pulse Rate 76 84 73 Respiratory Rate 18 Blood Pressure 142/80 H Pulse Oximetry 98 Oxygen Delivery 08/16/23 01:33 08/16/23 03:55 08/16/23 04:22 Temperature 97.6 F Pulse Rate 73 64 63 Respiratory Rate 18 Blood Pressure 134/61 Pulse Oximetry 98 Oxygen Delivery 08/16/23 04:00 08/16/23 07:38 08/16/23 08:37 Temper
[2023-08-16 19:21] LABS: CRP 1.8 mg/dL (<1.0)
[2023-08-16 19:39] LABS: Erythrocyte Sedimentation Rate 17 mm/hr (0-20)
[2023-08-16 19:54] LABS: Procalcitonin 0.1 ng/mL
[2023-08-16] MEDS: ATORVASTATIN 40 MG TABLET 80 MG PO (20:44)
[2023-08-16] MEDS: TAMSULOSIN HCL 0.4 MG CAPSULE PO (20:45)
[2023-08-16 21:12] LABS: Glucose Point of Care 133 mg/dl (65-105)
--- NOTE | 2023-08-17 00:04 | PC.NURSE ---
This patient, Rob Aguiar Jr., was transferred to [facility] on 08/16/23. Personal belongings sent with patient. Report given to MARLYN Montalvo. Appropriate documentation sent with patient.
[2023-08-17] MEDS: busPIRone HCL 10 MG TABLET PO ×2 (00:15→05:59)
[2023-08-17 00:19] VITALS: PULSE 73
[2023-08-17 04:00] VITALS: PULSE 60
[2023-08-17 05:56] LABS: Basophils Percent Auto 0.4 % (0.2-1.2); Eosinophils Absolute Auto 0.2 K/mm3 (0-0.3); Eosinophils Percent Auto 1.6 % (0-4.4); Hematocrit 37.9 % (42.0-52.0); Hemoglobin 12.1 g/dL (14.0-18.0); Immature Granulocyte Absolute 0.03 K/mm3 (0.00-0.031); Immature Granulocyte Percent A 0.3 % (0-0.5); Lymphocytes Absolute Auto 0.81 K/mm3 (0.9-3.2); Lymphocytes Percent Auto 8.1 % (18.3-44.2); Mean Corpuscular HGB Conc 31.9 g/dl (32-36); Mean Corpuscular Hemoglobin 29.7 pg (26-34); Mean Corpuscular Volume 93.1 fl (80-100); Mean Platelet Volume 12.2 fl (7.4-10.4); Monocytes Absolute Auto 1.2 K/mm3 (0.1-0.6); Monocytes Percent Auto 12.4 % (2.6-8.5); Neutrophils Absolute Auto 7.8 K/mm3 (1.3-6.7); Neutrophils Percent Auto 77.2 % (45.5-73.1); Platelet Count Result 165 k/mm3 (150-375); Red Blood Count 4.07 M/mm3 (4.6-6.20); Red Cell Distribution Width 13.5 % (11.5-14.5)
[2023-08-17 06:00] VITALS: BP 116/56; PULSE 61; RESP 16; TEMP 36.6; O2SAT 100
[2023-08-17 06:05] LABS: Alanine Aminotransferase 43 U/L (6-50); Albumin Level 3.5 g/dL (3.5-5.1); Alkaline Phosphatase 61 U/L (38-126); Anion Gap 10 mmol/L (8-16); Aspartate Amino Transferase 35 U/L (17-59); Bilirubin,Total 1.3 mg/dL (0.2-1.3); Blood Urea Nitrogen 35 mg/dL (9-20); Calcium 8.7 mg/dL (8.4-10.2); Carbon Dioxide 23 mmol/L (22-30); Chloride 102 mmol/L (98-107); Estimated CRCL calculation 41 ml/min; Estimated Glomerular Filt Rate 39; Glucose 122 mg/dL (65-110); Potassium 4.7 mmol/L (3.4-5.0); Sodium 135 mmol/L (137-145)
[2023-08-17 07:47] LABS: Glucose Point of Care 138 mg/dl (65-105)
[2023-08-17 08:00] VITALS: BP 134/58; PULSE 59; PULSE 64; RESP 18; TEMP 36.2; O2SAT 97
--- NOTE | 2023-08-17 08:01 | PM.PNCARD ---
Progress Note: A&P Assessment and Plan (1) Pacemaker: Code(s): Z95.0 - Presence of cardiac pacemaker Status: Acute Assessment and Plan: Interrogated pacemaker not showing bradycardia. (2) Systolic dysfunction: Code(s): I51.9 - Heart disease, unspecified Status: Acute Assessment and Plan: Resumed home medication including Coreg, Entresto, Jardiance. 08/14/23 Echo: EF 30-35% globally reduced, mod LVE, mod LVH, diastolic dysfunction (E/e' 19), mod LAE, severe CHELSY, mild MR. Obtain records from [place] [facility] of [facility], echo, pacemaker insertion. Unable to obtain records thus far. Started Lasix 40 mg PO daily. Not on Spironolactone due to high potassium. 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 Probably due to cardiomyopathy. Started Amiodarone drip, will continue drip for now as he is still having a lot of ventricular ectopics. Check EKG QT interval. Resumed Coreg. Stopped Amiodarone drip. Started Amiodarone 200 mg PO BID 08/16/23. May d/c home from cardiology standpoint and needs f/u with MS doctor/veterans employment representative in 1-2 weeks. (4) Dyslipidemia: Code(s): E78.5 - Hyperlipidemia, unspecified Status: Acute Assessment and Plan: On Atorvastatin. (5) HTN (hypertension), benign: Code(s): I10 - Essential (primary) hypertension Status: Acute Assessment and Plan: Stable. Subjective Date/time seen: 08/17/23 08:01 Interval history: Denies chest pain or sob today. Exam Const: General: cooperative, healthy appearing and comfortable Orientation/consciousness: oriented to person, oriented to place and oriented to time Resp: Auscultation: clear to auscultation bilaterally, no crackles, no rales, no rhonchi and no wheezes Cardio: Rate: regular rate Rhythm: regular rhythm Heart sounds: no murmurs Peripheral pulses: dorsalis pedis present Neuro: General: oriented to person, oriented to place and oriented to time Extrem: Right lower extremity: no edema Left lower extremity: no edema Objective Data Vital Signs Vital Signs: Vital Signs - 24 hr 08/16/23 08:37 08/16/23 08:37 08/16/23 11:07 Temperature Pulse Rate 86 84 Respiratory Rate Blood Pressure Pulse Oximetry Oxygen Delivery Room Air 08/16/23 12:00 08/16/23 08:26 08/16/23 12:00 Temperature 97.1 F L 96.7 F L Pulse Rate 43 L 63 Respiratory Rate 18 20 Blood Pressure 135/54 L 135/65 Pulse Oximetry 99 99 Oxygen Delivery Room Air 08/16/23 10:00 08/16/23 12:00 08/16/23 14:00 Temperature Pulse Rate 84 85 83 Respiratory Rate Blood Pressure Pulse Oximetry Oxygen Delivery 08/16/23 16:11 08/16/23 16:13 08/16/23 16:00 Temperature 97.1 F L Pulse Rate 85 85 72 Respiratory Rate 18 Blood Pressure 141/56 H Pulse Oximetry 98 Oxygen Delivery 08/16/23 12:00 08/16/23 19:35 08/16/23 20:44 Temperature 97.6 F 97.2 F L Pulse Rate 64 88 70 Respiratory Rate 18 16 Blood Pressure 141/90 H 144/47 H Pulse Oximetry 98 97 Oxygen Delivery 08/16/23 20:00 08/16/23 23:10 08/16/23 20:00 Temperature 97.9 F Pulse Rate 85 85 Respiratory Rate 16 Blood Pressure 118/53 L Pulse Oximetry 100 Oxygen Delivery Room Air 08/17/23 00:19 08/17/23 04:00 08/17/23 06:00 Temperature 97.8 F Pulse Rate 73 60 61 Respiratory Rate 16 Blood Pressure 116/56 L Pulse Oximetry 100 Oxygen Delivery Intake/Output Intake/Output: Intake & Output 08/14/23 08/15/23 08/16/23 08/17/23 23:59 23:59 23:59 23:59 Intake Total 925 1130 1690 Output Total 350 300 500 Balance 358 648 0514 Meds/Results Medications: Active Medications Generic Name Dose Route Start Last Admin Trade Name Freq PRN Reason Stop Dose Admin Amiodarone HCl 200 mg 08/16/23 09:00 08/16/23 16:13
[2023-08-17] MEDS: AMIODARONE HCL 200 MG TABLET PO (09:06)
[2023-08-17] MEDS: EMPAGLIFLOZIN 10 MG TABLET PO (09:06)
[2023-08-17] MEDS: ASPIRIN 81 MG ENTERIC TABLET PO (09:06)
[2023-08-17] MEDS: CHOLECALCIFEROL 1,000 UNITS TABLET 1000 UNITS PO (09:06)
[2023-08-17] MEDS: carvediloL 3.125 MG TABLET PO (09:07)
[2023-08-17] MEDS: FUROSEMIDE 40 MG TABLET PO (09:07)
[2023-08-17] MEDS: FINASTERIDE 5 MG TABLET PO (09:07)
[2023-08-17] MEDS: ENOXAPARIN 40 MG/0.4 ML SYRINGE SUB-Q (09:09)
[2023-08-17] MEDS: SACUBITRIL/VALSARTAN 12-13 MG TABLET 1 TAB PO (09:09)
[2023-08-17 11:33] LABS: Glucose Point of Care 176 mg/dl (65-105)
--- NOTE | 2023-08-17 14:30 | PM.DS ---
DS: Admitting Diagnosis Discharge Date 08/17/2023 Admitting Diagnosis Dizziness DS: Discharge Diagnosis Discharge Diagnosis (1) Bradycardia: Code(s): R00.1 - Bradycardia, unspecified Status: Acute (2) Light-headed: Code(s): R42 - Dizziness and giddiness Status: Acute (3) Renal insufficiency: Code(s): N28.9 - Disorder of kidney and ureter, unspecified Status: Acute (4) Diabetes mellitus: Code(s): E11.9 - Type 2 diabetes mellitus without complications Status: Acute (5) HTN (hypertension), benign: Code(s): I10 - Essential (primary) hypertension Status: Acute (6) Elevated troponin: Code(s): R77.8 - Other specified abnormalities of plasma proteins Status: Acute (7) History of permanent cardiac pacemaker placement: Code(s): Z95.0 - Presence of cardiac pacemaker Status: Acute (8) Systolic dysfunction: Code(s): I51.9 - Heart disease, unspecified Status: Acute (9) Dyslipidemia: Code(s): E78.5 - Hyperlipidemia, unspecified Status: Acute (10) Leucocytosis: Code(s): D72.829 - Elevated white blood cell count, unspecified Status: Acute Plan Symptomatic bradycardia with lightheadedness heart rate down in 30s received atropine and placed on dopamine drip. Upon interrogation patient noted to have frequent ventricular ectopic beats and no bradycardia was noted. EKG reviewed with ventricular couplets and frequent ventricular triplets underlying left bundle branch block patient has been started on amiodarone per Cardiology also on Coreg. No bradycardia was noted on interrogation Leukocytosis. ESR, CRP, pro-calcitonin, UA Mild JONE on CKD stage 3 creatinine 1.9 baseline around 1.5 2021 Status post pacemaker implantation in 2019 for heart block Coronary artery disease Cardiomyopathy with ejection fraction 35-40% in the past repeat echo with EF 30-35% started on Lasix Hypertension Hyperlipidemia Anxiety disorder BPH DVT prophylaxis Lovenox Code status do not resuscitate DS: Summary Hospital Course Reason for hospitalization: Dizziness Hospital Course: 82-year-old male presented via EMS for symptoms of feeling lightheaded.? Denies any headache.? No chest pain or shortness of breath.? He has a history of coronary artery disease diabetes and hypertension also has anxiety disorder.? Is a former smoker no alcohol or drug use.? He is status post pacemaker implantation for heart block in 2010.? He has cardiomyopathy with ejection fraction is 35-40%.? In the ER he was noted to be bradycardic and low 30s.? Atropine was given without much response and hence dopamine drip was started.? Patient has since been admitted to the ICU for further treatment.? Laboratory workup revealed creatinine 1.9 troponin 0.099.? Pacemaker interrogation has been done and does not show any bradycardia.? On Coreg at home.? Cardiology has been consulted.? Ventricular ectopic beats were found and hence has been started on amiodarone drip per Cardiology recommendation.? He is admitted for further evaluation management Per Cardiology: Frequent PVC's and ventricular triplets and couplets. Probably due to cardiomyopathy. Started Amiodarone drip, will continue drip for now as he is still having a lot of ventricular ectopics. Check EKG QT interval. Resumed Coreg. Stopped Amiodarone drip. Started Amiodarone 200 mg PO BID 08/16/23. May d/c home from cardiology standpoint and needs f/u with ID doctor/pool technician in 1-2 weeks. 08/17/23: He will be discharged to a SNF today on Amiodarone, Coreg, lasix and Entresto Status at Discharge Overall status at discharge: patient is progressing back to baseline Time Spent with Patient Time attestation: Total time spent providing and/or coordinating discharge services: Exam Narrative: GENERAL: Well-appearing, well-nourished, and in no acute distress. HEAD: Normocephalic, atraumatic. EYES: PERRLA and
[2023-08-17 16:04] LABS: SARS-CoV-2 RNA PCR Negative (Negative)
--- NOTE | 2023-08-17 19:28 | PC.NURSE ---
Received a call from the patient's [id number]-wlw, Anna, regarding the patient's Entresto dose. Yakelin Chapman RN spoke with the discharging hospitalist, Dr. Ruiz, to clarify the order. Dr. Ruiz stated that the patient should resume his home dose of Entresto which is Entresto 24-26mg 0.5 tab Q12. I notified Anna of the clarification.
== END 2023-08-17 16:30 | DRG 310 ==
LOC: ANHED 03:11 → ANHICU 06:24 → ANHIMU 21:10 → ANH3MEDSUR 08-16 23:49
PROVIDERS: Internal Medicine; Internal Medicine Cardiovascular Disease; Admitting Provider Internal Medicine; Emergency Provider Emergency Medicine; Visit Provider Internal Medicine
DX: R00.1 Bradycardia, unspecified (principal); E78.5 Hyperlipidemia, unspecified; I25.10 Atherosclerotic heart disease of native coronary artery without angina pectoris; E11.9 Type 2 diabetes mellitus without complications; I42.9 Cardiomyopathy, unspecified; F41.9 Anxiety disorder, unspecified; D72.829 Elevated white blood cell count, unspecified; I44.7 Left bundle-branch block, unspecified; N40.0 Benign prostatic hyperplasia without lower urinary tract symptoms; I12.9 Hypertensive chronic kidney disease with stage 1 through stage 4 chronic kidney disease, or unspecified chronic kidney disease; N18.30 Chronic kidney disease, stage 3 unspecified; Z66 Do not resuscitate; Z95.0 Presence of cardiac pacemaker; Z11.52 Encounter for screening for COVID-19; Z87.891 Personal history of nicotine dependence; Z79.82 Long term (current) use of aspirin
CPT/HCPCS: 36415; 71045; 80053; 81001; 82948; 83735; 84100; 84145; 84443; 84484; 85025; 85652; 86140; 87635; 93005; 96365; 96366; 96375; 97161; 99285; A9270; C8929; J0282; J0461; J1265; J1650; J2405; J7120; Q9957

== ENCOUNTER 2024-03-02 10:26 | Emergency (ER) | payer MEDICARE, OTHER, SELFPAY ==
[2024-03-02] VITALS (16 sets, daily range): BP systolic 76–105; BP diastolic 50–63; PULSE 60–79; RESP 14–25; TEMP 36.3; O2SAT 96–100
--- NOTE | 2024-03-02 12:07 | ED.BACK ---
HPI - Back Pain/Injury General Chief Complaint: Back Pain/Injury Stated Complaint: back pain Time Seen by Provider: 03/02/24 11:09 History of Present Illness HPI Narrative: Patient is an 83-year-old male with history of coronary artery disease, pacemaker in place, chronic back pain here with left-sided lower back pain. He states that this episode of back pain has been present for the last several weeks. He notes it is located both midline and to the left side and radiates down into his left leg. He has an extensive history of back issues and has had multilevel lumbar surgeries in the past. He has struggled with back pain since then. He only takes Tylenol at home as needed and states that the Tylenol is not helping, here today for more pain medication and requesting a cortisone shot in his back. He denies any fever, chills. Denies any trauma. He denies any bowel or bladder incontinence. Denies lower extremity numbness or weakness. He has been able to ambulate without difficulty. He lives at a assisted living facility, medications are provided by his son. His typical primary care is coordinated through the [facility]. Related Data Home Medications Medication Instructions Recorded Confirmed aspirin 81 mg capsule,delayed 81 mg PO DAILY 03/16/22 08/14/23 release atorvastatin 80 mg tablet 80 mg PO HS 03/16/22 08/14/23 blood sugar diagnostic (Accu-Chek 03/16/22 08/14/23 Guide test strips) buspirone 10 mg tablet 10 mg PO TID 03/16/22 08/14/23 cholecalciferol (vitamin D3) 25 25 mcg PO DAILY 03/16/22 08/14/23 mcg (1,000 unit) tablet (Vitamin D3) finasteride 5 mg tablet 5 mg PO DAILY 03/16/22 08/14/23 omeprazole 20 mg capsule,delayed 20 mg PO DAILY 03/16/22 08/14/23 release tamsulosin 0.4 mg capsule 0.4 mg PO HS 03/16/22 08/14/23 trazodone 50 mg tablet 50 mg PO HS 03/16/22 08/14/23 Allergies Allergy/AdvReac Type Severity Reaction Status Date / Time amlodipine Allergy Unknown Verified 03/02/24 10:31 codeine Allergy Unknown Verified 03/02/24 10:31 doxazosin Allergy Unknown Verified 03/02/24 10:31 empagliflozin Allergy Unknown Verified 03/02/24 10:31 enalapril Allergy Unknown Verified 03/02/24 10:31 metformin Allergy Unknown Verified 03/02/24 10:28 metoprolol Allergy Unknown Verified 03/02/24 10:31 Review of Systems Review of Systems: All systems reviewed & are unremarkable except as noted in HPI and below PMFSH Past Medical History Medical History (Updated 03/02/24 @ 14:44 by Yohana Sal MD) Anxiety CAD (coronary artery disease) Diabetes mellitus HTN (hypertension), benign Surgical History Surgical History (Updated 03/16/22 @ 13:43 by Omar Quiñonez MD) H/O arthroscopic knee surgery H/O shoulder surgery History of cervical spinal surgery History of lumbar surgery History of permanent cardiac pacemaker placement Family History Family History (Updated 03/16/22 @ 13:44 by Omar Quiñonez MD) Father CAD (coronary artery disease) Mother Diabetes mellitus Sibling Leukemia Other Unknown family medical history Social History Social History (Updated 03/16/22 @ 13:45 by Omar Quiñonez MD) Social History: Patient lives in assisted living in [place]. [facility] a [facility]. He quit tobacco in 1979 after smoking half a pack a day for 20 years. Denies alcohol or drug use. Lives alone. He is DNR. He nominates his son to be the individual would make medical decisions for him if he is unable. Smoking status: Former smoker Tobacco type: cigarettes Alcohol intake: never Substance use: never Lack of Transportation: No Lack of Food: Never True Current Housing: I Have Housing Concerned About Future Housing: No Difficulty Paying Gas/Electric Bills: No Difficulty Paying for Meds: No Currently Unemployed: No Education: High School Diploma/GED Difficulty w/ Childcare or Family Care: No Spiritual care concerns: No Exam Narrative: GENERAL: Well-ap
[2024-03-02] MEDS: HYDROcodone/acetaminophen (*CRX) 5-325 MG TABLET 1 TAB PO (12:21)
[2024-03-02 12:44] LABS: Basophils Absolute Auto 0.1 K/mm3 (0.0-0.1); Basophils Percent Auto 0.5 % (0.2-1.2); Eosinophils Absolute Auto 0.1 K/mm3 (0-0.3); Eosinophils Percent Auto 1.3 % (0-4.4); Hemoglobin 13.1 g/dL (14.0-18.0); Immature Granulocyte Absolute 0.04 K/mm3 (0.00-0.031); Immature Granulocyte Percent A 0.4 % (0-0.5); Lymphocytes Absolute Auto 1.16 K/mm3 (0.9-3.2); Lymphocytes Percent Auto 11.5 % (18.3-44.2); Mean Corpuscular HGB Conc 32.8 g/dl (32-36); Mean Corpuscular Hemoglobin 30.8 pg (26-34); Mean Corpuscular Volume 93.9 fl (80-100); Mean Platelet Volume 10.3 fl (7.4-10.4); Monocytes Absolute Auto 0.9 K/mm3 (0.1-0.6); Neutrophils Absolute Auto 7.8 K/mm3 (1.3-6.7); Neutrophils Percent Auto 77.3 % (45.5-73.1); Platelet Count Result 237 k/mm3 (150-375); Red Blood Count 4.26 M/mm3 (4.6-6.20); Red Cell Distribution Width 13.2 % (11.5-14.5); White Blood Count 10.1 K/mm3 (4.5-10.0)
[2024-03-02 13:00] LABS: Alanine Aminotransferase 30 U/L (6-50); Albumin Level 4.4 g/dL (3.5-5.1); Alkaline Phosphatase 106 U/L (38-126); Anion Gap 11 mmol/L (4-12); Aspartate Amino Transferase 35 U/L (17-59); Bilirubin,Total 0.9 mg/dL (0.2-1.3); Blood Urea Nitrogen 42 mg/dL (9-20); Carbon Dioxide 25 mmol/L (22-30); Chloride 98 mmol/L (98-107); Estimated CRCL calculation 23 ml/min; Estimated Glomerular Filt Rate 25; Glucose 141 mg/dL (65-110); Potassium 4.7 mmol/L (3.4-5.0); Sodium 134 mmol/L (137-145)
[2024-03-02 13:14] LABS: Appearance Urine Clear (Clear); Bilirubin Urine Negative (Negative); Blood Urine Negative (Negative); Color Urine Yellow (Yellow); Glucose Urine UA 2+ mg/dL (Negative); Ketones Urine Negative (Negative); Leukocyte Esterase Ur Negative LEU/UL (Negative); Nitrate Urine Negative (Negative); Protein Urine Negative (Negative); Specific Grav Ur 1.014 (1.001-1.035); Urobilinogen Urine 0.2 mg/dL (<2.0)
[2024-03-02 13:19] LABS: Add Urine Microscopic? NO
== END 2024-03-02 15:02 ==
PROVIDERS: Emergency Provider Student in an Organized Health Care Education/Training Program
DX: M54.42 Lumbago with sciatica, left side (principal); I25.10 Atherosclerotic heart disease of native coronary artery without angina pectoris; I10 Essential (primary) hypertension; E11.9 Type 2 diabetes mellitus without complications; F41.9 Anxiety disorder, unspecified; Z95.0 Presence of cardiac pacemaker; Z87.891 Personal history of nicotine dependence; Z79.82 Long term (current) use of aspirin; Z79.899 Other long term (current) drug therapy; Z79.84 Long term (current) use of oral hypoglycemic drugs
CPT/HCPCS: 36415; 80053; 81003; 85025; 99283; A9270

== ENCOUNTER 2024-05-14 08:02 | Inpatient (IN) | payer MEDICARE, OTHER, SELFPAY ==
[2024-05-14] VITALS (10 sets, daily range): BP systolic 84–97; BP diastolic 37–63; PULSE 79–82; RESP 14–26; TEMP 36.3–36.6; O2SAT 90–99; BMI 25.1
--- NOTE | 2024-05-14 | ECHO_ITS ---
Patient Info Name: Rob Aguiar Age: 83 years : 1940 Gender: Male Ht: 75 in Wt: 195 lbs BSA: 2.17 m2 HR: 80 bpm BP: 90 / 50 mmHg Technical Quality: Poor Exam Date: 05/14/2024 4:07 PM Exam Location: Echo Lab Patient Status: Outpatient Admit Date: 05/14/2024 Staff Ordering Physician: Renu Vital APRN Tire Fabricator: Areli Denise RDCS Attending Provider: Renu Vital APRN Referring Physician: Amanuel MULLER; Exam Type: CA echo dop color flow w con Study Info Indications - heart failure with reduced EF Complete two-dimensional, color flow and Doppler transthoracic echocardiogram is performed with contrast to opacify the left ventricle and to improve the deliniation of the left ventricle endocardial borders. Contrast/Agitated Saline Contrast/Ag. Saline: Definity Amount: 2.00 ml Administered By: Areli Denise RDCS Existing IV Access: Yes IV Access Condition: patent with no signs of infiltration Summary 1. Technically suboptimal study due to poor sonographic images. 2. Definity contrast administered improved wall motion interpretation. 3. Left ventricular chamber dimension is normal. 4. Left ventricular systolic function is normal, estimated at 55-60%. 5. There is mild concentric increased left ventricular wall thickness. 6. The left ventricular diastolic function is abnormal. 7. E/e' 12 is mildly elevated. 8. No pulmonary hypertension, estimated pulmonary arterial systolic pressure is 24 mmHg. Left Ventricle Technically suboptimal study due to poor sonographic images. E/e' 12 is mildly elevated. Definity contrast administered improved wall motion interpretation. Left ventricular chamber dimension is normal. Left ventricular systolic function is normal, estimated at 55-60%. There is mild concentric increased left ventricular wall thickness. The left ventricular diastolic function is abnormal. Right Ventricle Right ventricular systolic function is normal and with normal TAPSE 2.1 cm. Right ventricular chamber dimension is normal. Left Atria Left atrial chamber dimension is normal. Right Atria Right atrial chamber dimension is normal. Aortic Valve The aortic valve is not well visualized. Cannot determine number of aortic valve leaflets. There is no aortic valve stenosis based on valve gradients. There is no aortic valve regurgitation. Pulmonic Valve The pulmonic valve is not well visualized. There is no pulmonic regurgitation. Mitral Valve There is no mitral valve stenosis. There is no mitral valve regurgitation. Tricuspid Valve There is no tricuspid valve regurgitation. No pulmonary hypertension, estimated pulmonary arterial systolic pressure is 24 mmHg. Pericardium/Pleural There is no pericardial effusion. Inferior Vena Cava Inferior vena cava is not well visualized. Aorta The aortic root size at the sinus of Valsalva is normal. Left Ventricular Outflow Tract Name Value Normal LVOT Doppler LVOT Peak Gradient 1 mmHg LVOT Mean Gradient 0 mmHg LVOT VTI 6.64 cm LVOT VTI/AV VTI Ratio 0.42 Mitral Valve Name Value Normal MV Doppler MV Decel [place] 284.89 cm/s2 MV PHT 0 s MV Area (PHT) 2.75 cm2 4.00-5.00 MV Diastolic Function MV E Peak Velocity 78.70 cm/s MV A Peak Velocity 1.81 cm/s MV E/A 43.43 MV Decel Time 0 s MV Annular TDI MV E/e' (Septal) 12.15 <=8.00 MV E/e' (Lateral) 12.78 <=8.00 MV E/e' (Average) 12.46 Tricuspid Valve Name Value Normal TV Regurgitation Doppler TR Peak Velocity 218.77 cm/s TR Peak Gradient 19 mmHg Estimated PAP/RSVP RA Pressure 5 mmHg <=5 PA Systolic Pressure 24 mmHg <36 RV Systolic Pressure 24 mmHg <36 Aortic Valve Name Value Normal AV Doppler AV Peak Velocity 97.88 cm/s AV Peak Gradient 4 mmHg AV Mean Gradient 2 mmHg AV VTI 15.63 cm Ventricles Name Value Normal LV Fractional Shortening/Ejection Fraction 2D/MM LV Diastolic Volume (4C MOD) 87.89 ml LV EF (4C MOD) 52 % LV Diastolic Volume (2C MOD) 67.70 ml LV EF (2C MOD) 58 % LV Diastolic Volume (BP MOD) 77.55 ml 62.00-150.00 LV Diastolic Volume Index (BP MOD) 0.04 l/m2 0.03-0.07 LV Systolic Volume (BP MOD) 35.32 ml 21.00-61.00 LV Systolic Volume Index (BP MOD) 0.02 l/m2 0.01-0.03 LV EF (BP MOD) 54 % 52-72 LV Diastolic Length (4C) 8.43 cm LV Systolic Length (4C) 8.20 cm LV Stroke Volume (4C MOD) 45.45 ml Atria Name Value Normal LA Dimensions LA Volume (4C A-L) 28.18 ml LA Volume (BP A-L) 30.69 ml RA Dimensions RA Area (4C) 17.00 cm2 <=18.00 Report Signatures
--- NOTE | ~2024-05-14 | CT_ITS ---
EXAMINATION:CT diagnostic chest wo con DATE: 05/14/2024 09:14 INDICATION: Syncope. COVID-19 positive. TECHNIQUE: Computed tomography (CT) of the chest was performed without intravenous contrast. Automate d exposure control and iterative reconstruction technique were employed. The dose-length product (DLP ) was 395.33 mGy-cm. COMPARISON: Chest 2 views 05/14/2024 FINDINGS: There are airspace and groundglass opacities with air bronchograms in left lower lobe, cons istent with pneumonia. There is focal mild bronchiectasis in right upper lobe associated with a clust er of nodules measuring up to 4 mm, likely recurrent or chronic infection. There is a trace left pleu ral effusion. There is left atrial and left ventricular enlargement of the heart. There are coronary artery calcifications. No pericardial effusion. There is a left chest wall pacer with leads in the ri ght atrium and right ventricle. There are bridging endplate osteophytes at multiple levels in the spi ne, consistent with diffuse idiopathic skeletal hyperostosis (DISH). There is mild chronic anterior w edging of multiple vertebral bodies. IMPRESSION: 1. Left lower lobe pneumonia. Reviewed, dictated and finalized at location A.
--- NOTE | ~2024-05-14 | XR_ITS ---
XR chest 2V Ordering provider: Vince Olivares MD History: 83 years Male with . near syncope, covid+ . Comparison: August 14, 2023 FINDINGS: MEDIASTINUM: The cardiac silhouette is not enlarged. Left bipolar pacemaker. LUNGS: No effusions or pneumothorax. Opacity is seen posteriorly in the lateral view projected over t he spine inferiorly which may be a mass or pneumonia. CT evaluation advised. Prominent markings in the lower lobes. OTHER: No free air under the diaphragm. Bowel is seen under the right hemidiaphragm. IMPRESSION: Opacity projected over the spine in the lateral view which may be a mass or pneumonia in the lower lo bes area. CT evaluation advised. Reviewed, dictated and finalized at location A. IMPRESSION: Opacity projected over the spine in the lateral view which may be a mass or pne umonia in the lower lobes area. CT evaluation advised.
--- NOTE | 2024-05-14 08:03 | ECG_ITS ---
Test Date: 2024-05-14 08:11:34 Measurements Intervals [place] Rate: 80 P: 0 OR: 0 QRS: 260 QRSD: 163 T: 75 QT: 453 QTc: 523 Interpretive Statements ELECTRONIC VENTRICULAR PACEMAKER No previous ECG available for comparison Electronically Signed On 05-14-2024 14:48:29 CDT by Mihai Moreno M.D.
--- NOTE | 2024-05-14 08:17 | ED_ITS ---
HPI - General Adult General Chief complaint: Syncope Stated complaint: SYNCOPY, COVID + Time Seen by Provider: 05/14/24 08:14 History of Present Illness HPI narrative: 83-year-old male presenting to the emergency department for evaluation for worsening shortness of breath and a syncopal episode. Patient states he was recently diagnosed with COVID and feels that his symptoms are worsening. Patient was initially diagnosed with COVID Monday. Patient has been saturating well on room air but reports he has had worsening fatigue and weakness. Patient does have history of CHF, high cholesterol, hypertension and pacemaker. Related Data Home Medications Medication Instructions Recorded Confirmed aspirin 81 mg capsule,delayed 81 mg PO DAILY 03/16/22 05/14/24 release atorvastatin 80 mg tablet 80 mg PO HS 03/16/22 05/14/24 blood sugar diagnostic (Accu-Chek 03/16/22 05/14/24 Guide test strips) buspirone 10 mg tablet 15 mg PO TID 03/16/22 05/14/24 cholecalciferol (vitamin D3) 25 25 mcg PO DAILY 03/16/22 05/14/24 mcg (1,000 unit) tablet (Vitamin D3) finasteride 5 mg tablet 5 mg PO DAILY 03/16/22 05/14/24 omeprazole 20 mg capsule,delayed 20 mg PO DAILY 03/16/22 05/14/24 release tamsulosin 0.4 mg capsule 0.4 mg PO HS 03/16/22 05/14/24 alprazolam 0.5 mg tablet 0.5 mg PO DAILY PRN Anxiety 05/14/24 05/14/24 carvedilol 3.125 mg tablet (Coreg) 6.25 mg PO Q12HR 05/14/24 05/14/24 empagliflozin 10 mg tablet 25 mg PO DAILY 05/14/24 05/14/24 (Jardiance) sitagliptin 25 mg tablet 25 mg PO DAILY 05/14/24 05/14/24 Allergies Allergy/AdvReac Type Severity Reaction Status Date / Time amlodipine Allergy Unknown Verified 03/02/24 10:31 codeine Allergy Unknown Verified 03/02/24 10:31 doxazosin Allergy Unknown Verified 03/02/24 10:31 empagliflozin Allergy Unknown Verified 03/02/24 10:31 enalapril Allergy Unknown Verified 03/02/24 10:31 metformin Allergy Unknown Verified 03/02/24 10:28 metoprolol Allergy Unknown Verified 03/02/24 10:31 Review of Systems Review of Systems: All systems reviewed & are unremarkable except as noted in HPI and below PMFSH Past Medical History Medical History Anxiety CAD (coronary artery disease) Diabetes mellitus Heart failure with reduced ejection fraction HTN (hypertension), benign Surgical History Surgical History H/O arthroscopic knee surgery H/O shoulder surgery History of cervical spinal surgery History of lumbar surgery History of permanent cardiac pacemaker placement Family History Family History Father CAD (coronary artery disease) Mother Diabetes mellitus Sibling Leukemia Other Unknown family medical history Social History Social History Social History: Patient lives in assisted living in [place]. He is a patient at the [facility]. He quit tobacco in 1979 after smoking half a pack a day for 20 years. Denies alcohol or drug use. Lives alone. He is DNR. He nominates his son to be the individual would make medical decisions for him if he is unable. Smoking status: Former smoker Tobacco type: cigarettes Second hand tobacco smoke exposure: No Smoking end date: 05/09/04 Alcohol intake: never Substance use: never Substance use type: does not use Do You Feel Safe in your Home?: Yes Lack of Transportation: No Lack of Food: Never True Current Housing: I Have Housing Concerned About Future Housing: No Difficulty Paying Gas/Electric Bills: No Difficulty Paying for Meds: No Currently Unemployed: No Education: High School Diploma/GED Difficulty w/ Childcare or Family Care: No Spiritual care concerns: No Exam Narrative: APPEARANCE: Ill-appearing HEAD: normocephalic, atraumatic. EYES: PERRLA/EOMI, conjunctivae clear. NOSE: Normal no drainage EARS:TMS clear with good light reflex. THROAT: Pharynx clear, no exudate. NECK: Supple. No adenopathy, no masses. RESPIRATORY: Airway patent, respirations nonlabored. Clear to auscultation bilaterally, no rales, rhonchi, wheezing. CARDIOVASCULAR: Regular rate and rhythm without murmurs rubs or gallops. ABDOMINAL: Soft, nontender, nondistended, normal bowel sounds MUSCULOSKELETAL: Moves all extremities. Strength/ROM intact, No edema, No calf tenderness. NEURO: Alert. Cranial nerves II through XII intact. Grossly intact SKIN: Warm, dry. Normal Color Course Course Emergency Course: Patient was admitted for pneumonia, COVID and syncope Vital Signs Vital signs: Vital Signs Temperature 97.3 F L 05/14/24 08:04 Pulse Rate 82 05/14/24 08:04 Respiratory Rate 20 05/14/24 08:04 Blood Pressure 97/55 L 05/14/24 08:04 Pulse Oximetry 96 05/14/24 08:04 Oxygen Delivery Room Air 05/14/24 08:04 Temperature 97.4 F L 05/14/24 16:00 Pulse Rate 80 05/14/24 16:00 Respiratory Rate 20 05/14/24 16:00 Blood Pressure 84/43 L 05/14/24 16:00 Pulse Oximetry 93 05/14/24 16:00 Oxygen Delivery Room Air 05/14/24 08:04 Medical Decision Making MDM Narrative Medical decision making narrative: [age] old male presenting ED for evaluation for syncope worsening shortness breath with a current COVID diagnosis. Patient is afebrile but does have a leukocytosis of 16.2 and hemoglobin of 11.6. Patient does have acute kidney injury with creatinine of 3.3 with typical baseline of 2-2.5. X-ray was concerning for pneumonia CT was recommended and CT does confirm left lower lobe pneumonia. Blood cultures were ordered and patient was started on Rocephin and azithromycin. Case was discussed with hospitalist patient was accepted for admission. Differential Diagnosis Differential Diagnosis: COVID, RSV, influenza, bacterial pneumonia, CHF, chronic kidney disease, acute kidney injury Vital Signs Vital Signs: Vital Signs Temperature 97.3 F L 05/14/24 08:04 Pulse Rate 82 05/14/24 08:04 Respiratory Rate 20 05/14/24 08:04 Blood Pressure 97/55 L 05/14/24 08:04 Pulse Oximetry 96 05/14/24 08:04 Oxygen Delivery Room Air 05/14/24 08:04 Temperature 97.4 F L 05/14/24 16:00 Pulse Rate 80 05/14/24 16:00 Respiratory Rate 20 05/14/24 16:00 Blood Pressure 84/43 L 05/14/24 16:00 Pulse Oximetry 93 05/14/24 16:00 Oxygen Delivery Room Air 05/14/24 08:04 Lab Data 05/14/24 08:26 05/14/24 08:26 Labs: Lab Results 05/14/24 Range/Units 08:26 WBC 16.2 H (4.5-10.0) K/mm3 RBC 3.69 L (4.6-6.20) M/mm3 Hgb 11.6 L (14.0-18.0) g/dL Hct 35.3 L (42.0-52.0) % MCV 95.7 (80-100) fl MCH 31.4 (26-34) pg MCHC 32.9 (32-36) g/dl RDW 14.3 (11.5-14.5) % Plt Count 231 (150-375) k/mm3 MPV 10.5 H (7.4-10.4) fl Immature Gran % (Auto) 0.7 H (0-0.5) % Neut % (Auto) 86.5 H (45.5-73.1) % Lymph % (Auto) 5.2 L (18.3-44.2) % [place] % (Auto) 7.3 (2.6-8.5) % Eos % (Auto) 0.1 (0-4.4) % Baso % (Auto) 0.2 (0.2-1.2) % Lymph # (Auto) 0.85 L (0.9-3.2) K/mm3 [place] # (Auto) 1.2 H (0.1-0.6) K/mm3 Eos # (Auto) 0.0 (0-0.3) K/mm3 Baso # (Auto) 0.0 (0.0-0.1) K/mm3 Abs Immat Gran (auto) 0.11 H (0.00-0.031) K/mm3 Absolute Neuts (auto) 14.0 H (1.3-6.7) K/mm3 Absolute Nucleated RBC 0.000 (0.0-0.012) K/mm3 Nucleated RBC % 0.0 (0.0-0.2) % Sodium 139 (137-145) mmol/L Potassium 4.1 (3.4-5.0) mmol/L Chloride 102 (98-107) mmol/L Carbon Dioxide 20 L (22-30) mmol/L Anion Gap 17 H (4-12) mmol/L BUN 76 H D (9-20) mg/dL Creatinine 3.30 H (0.7-1.3) mg/dL Estim Creat Clear Calc 17 ml/min Estimated GFR 18 L (59 - ) Glucose 192 H (65-110) mg/dL Hemoglobin A1c 6.7 H (<5.7) % Calcium 8.3 L (8.4-10.2) mg/dL Total Bilirubin 2.0 H (0.2-1.3) mg/dL AST 40 (17-59) U/L ALT 18 (6-50) U/L Alkaline Phosphatase 84 (38-126) U/L Total Protein 7.0 (6.3-8.2) g/dL Albumin 3.7 (3.5-5.1) g/dL Discharge Plan Discharge Clinical Impression: Pneumonia, Syncope, Acute kidney injury superimposed on chronic kidney disease Patient Disposition: Still a Patient Condition: Serious
[2024-05-14 08:35] LABS: Basophils Percent Auto 0.2 % (0.2-1.2); Eosinophils Percent Auto 0.1 % (0-4.4); Hematocrit 35.3 % (42.0-52.0); Hemoglobin 11.6 g/dL (14.0-18.0); Immature Granulocyte Absolute 0.11 K/mm3 (0.00-0.031); Immature Granulocyte Percent A 0.7 % (0-0.5); Lymphocytes Absolute Auto 0.85 K/mm3 (0.9-3.2); Lymphocytes Percent Auto 5.2 % (18.3-44.2); Mean Corpuscular HGB Conc 32.9 g/dl (32-36); Mean Corpuscular Hemoglobin 31.4 pg (26-34); Mean Corpuscular Volume 95.7 fl (80-100); Mean Platelet Volume 10.5 fl (7.4-10.4); Monocytes Absolute Auto 1.2 K/mm3 (0.1-0.6); Monocytes Percent Auto 7.3 % (2.6-8.5); Neutrophils Percent Auto 86.5 % (45.5-73.1); Platelet Count Result 231 k/mm3 (150-375); Red Blood Count 3.69 M/mm3 (4.6-6.20); Red Cell Distribution Width 14.3 % (11.5-14.5); White Blood Count 16.2 K/mm3 (4.5-10.0)
[2024-05-14 08:53] LABS: Alanine Aminotransferase 18 U/L (6-50); Albumin Level 3.7 g/dL (3.5-5.1); Alkaline Phosphatase 84 U/L (38-126); Anion Gap 17 mmol/L (4-12); Aspartate Amino Transferase 40 U/L (17-59); Blood Urea Nitrogen 76 mg/dL (9-20); Calcium 8.3 mg/dL (8.4-10.2); Carbon Dioxide 20 mmol/L (22-30); Chloride 102 mmol/L (98-107); Estimated CRCL calculation 17 ml/min; Estimated Glomerular Filt Rate 18; Glucose 192 mg/dL (65-110); Potassium 4.1 mmol/L (3.4-5.0); Sodium 139 mmol/L (137-145)
[2024-05-14] MEDS: SODIUM CHLORIDE 0.9% IV 1,000 ML 999 ML IV CONT (11:41)
--- NOTE | 2024-05-14 12:09 | PC.NURSE ---
Phlebotomy did not come to draw blood cultures on patient so anitbiotics were not started. discharge rn aware and states patient to still go to his room in the IMU.
--- NOTE | 2024-05-14 12:37 | PC.NURSE ---
Arrived to the floor at approximately 1200pm, via stretcher from the emergency department. Transferred from the stretcher to the bed with assistance times two people. Alert and oriented. Able to answer simple questions. Vital signs stable upon arrival. Noted to have a wet cough at this time. Denies shortness of breath. [employer] Painter called to the room to draw labs previously ordered in the emergency department. Denies chest pain at this time. monitor worker placed on and functioning at this time. Assisted living facility contacted and asked to supply list of current medications (patient is unaware of what he is taking at this time), as well as copy of positive Covid swab results from Saturday, May 11, 2024. Appears to be in no acute distress at this time.
[2024-05-14 12:53] LABS: Lactic Acid Reflex 2.5 mmol/L (0.7-2.0)
[2024-05-14] MEDS: AZITHROMYCIN 500 MG/NS 250 ML 500 MG/250 ML BAG 250 MG IVPB (12:53)
[2024-05-14] MEDS: SODIUM CHLORIDE 0.9% IV 1,000 ML 125 ML IV CONT (12:58)
--- NOTE | 2024-05-14 12:58 | P.HP_ITS ---
H&P: HPI History of Present Illness Date/Time: 05/14/24 12:58 Chief Complaint: Syncope Narrative: This an 83-year-old male with significant past medical history of congestive heart failure with reduced ejection fraction, anxiety, coronary artery disease, diabetes mellitus, hypertension, ventricular pacemaker, former smoker who presented to the hospital for evaluation of syncopal episode and was found to be positive for COVID. Patient reports the following history of presenting illness. He states that he started to feel bad with fever and chills at his nursing facility and they did a home COVID test which was found to be positive on Monday03/09/24. He was reported to have a syncopal episode at his facility earlier today and decided to send patient to the hospital for further evaluation. Patient denies any fever, chills, nausea, vomiting, diarrhea, abdominal pain, chest pain, shortness a breath. He is currently on room air with oxygen saturation of 97%. He does appear to be fatigued and weak. Patient initially meeting sepsis/septic shock criteria with a respiratory rate 21-26, hypotension, elevated lactic acid, elevated white blood cell count, and known source of infection. Workup in the hospital includes chest x-ray which shown opacity projected over the spine and the lateral view which may be a mass or pneumonia and the lower lobe. CT of the chest showed left lower lobe pneumonia, mild bronchiectasis in right upper lobe associated with a cluster of nodules measuring up to 4 mm, trace left pleural effusion. Initial labs shown a white blood cell count of 16.2, RBC 3.69, hemoglobin 11.6, anion gap 17, bicarb 20, creatinine 3.3, GFR 18, lactic acid 2.5, total bili 2.0, liver enzymes were normal. Blood cultures were obtained and are pending. Last echo was reviewed from 08/14/2023 and shown a severely reduced LV systolic function with an estimated EF of 30-35%, diastolic dysfunction, moderate concentric increased left ventricular wall thickness, moderately enlarged left atrium, severely enlarged right atrium, mild aortic valve sclerosis, mild mitral valve regurgitation. Patient was given azithromycin, Rocephin, and 1 L of normal saline while in the ED. Review of Systems Review of Systems: All systems reviewed & are unremarkable except as noted in HPI and below Constitutional: Constitutional: Reports as per HPI and Reports no additional constitutional complaints Eyes: Eyes: Reports as per HPI and Reports no additional eye complaints ENT: Reports system reviewed and no additional complaints, except as documented and Reports as per HPI Cardiovascular: Cardiovascular: Reports as per HPI and Reports no additional cardiovascular complaints Respiratory: Respiratory: Reports as per HPI and Reports no additional respiratory complaints Gastrointestinal: Gastrointestinal: Reports as per HPI and Reports no additional gastrointestinal complaints Genitourinary: Genitourinary: Reports no additional male genitourinary complaints and Reports as per HPI Musculoskeletal: Musculoskeletal: Reports no additional musculoskeletal complaints and Reports as per HPI Integumentary/Breasts: Skin/Breast: Reports system reviewed and no additional complaints, except as docu and Reports as per HPI Neurologic: Reports system reviewed and no additional complaints, except as documented and Reports as per HPI Psychiatric: Psychiatric: Reports no additional psychiatric complaints and Reports as per HPI [facility] Past Medical History Medical History Anxiety CAD (coronary artery disease) Diabetes mellitus Heart failure with reduced ejection fraction HTN (hypertension), benign Surgical History Surgical History H/O arthroscopic knee surgery H/O shoulder surgery History of cervical spinal surgery History of lumbar surgery History of permanent cardiac pacemaker placement Family History Family History Father CAD (coronary artery disease) Mother Diabetes mellitus Sibling Leukemia Other Unknown family medical history Social History Social History Social History: Patient lives in assisted living in [place]. He is a patient at the [place] system. He quit tobacco in 1979 after smoking half a pack a day for 20 years. Denies alcohol or drug use. Lives alone. He is DNR. He nominates his son to be the individual would make medical decisions for him if he is unable. Smoking status: Former smoker Tobacco type: cigarettes Second hand tobacco smoke exposure: No Smoking end date: 05/09/04 Alcohol intake: never Substance use: never Substance use type: does not use Do You Feel Safe in your Home?: Yes Lack of Transportation: No Lack of Food: Never True Current Housing: I Have Housing Concerned About Future Housing: No Difficulty Paying Gas/Electric Bills: No Difficulty Paying for Meds: No Currently Unemployed: No Education: High School Diploma/GED Difficulty w/ Childcare or Family Care: No Spiritual care concerns: No Meds Home Medications and Allergies Home Medications Medication Instructions Recorded Confirmed Type aspirin 81 mg capsule,delayed 81 mg PO DAILY 03/16/22 05/14/24 History release atorvastatin 80 mg tablet 80 mg PO HS 03/16/22 05/14/24 History blood sugar diagnostic (Accu-Chek 03/16/22 08/14/23 History Guide test strips) buspirone 10 mg tablet 15 mg PO TID 03/16/22 05/14/24 History cholecalciferol (vitamin D3) 25 25 mcg PO DAILY 03/16/22 05/14/24 History mcg (1,000 unit) tablet (Vitamin D3) finasteride 5 mg tablet 5 mg PO DAILY 03/16/22 05/14/24 History omeprazole 20 mg capsule,delayed 20 mg PO DAILY 03/16/22 05/14/24 History release tamsulosin 0.4 mg capsule 0.4 mg PO HS 03/16/22 05/14/24 History furosemide 40 mg tablet 40 mg PO DAILY #30 tabs 08/17/23 05/14/24 Rx sacubitril 24 mg-valsartan 26 mg 1 tab PO Q12HR #60 tabs 08/17/23 05/14/24 Rx tablet (Entresto) alprazolam 0.5 mg tablet 0.5 mg PO DAILY PRN Anxiety 05/14/24 05/14/24 History carvedilol 3.125 mg tablet (Coreg) 6.25 mg PO Q12HR 05/14/24 05/14/24 History empagliflozin 10 mg tablet 25 mg PO DAILY 05/14/24 05/14/24 History (Jardiance) sitagliptin 25 mg tablet 25 mg PO DAILY 05/14/24 05/14/24 History Allergies Allergy/AdvReac Type Severity Reaction Status Date / Time amlodipine Allergy Unknown Verified 03/02/24 10:31 codeine Allergy Unknown Verified 03/02/24 10:31 doxazosin Allergy Unknown Verified 03/02/24 10:31 empagliflozin Allergy Unknown Verified 03/02/24 10:31 enalapril Allergy Unknown Verified 03/02/24 10:31 metformin Allergy Unknown Verified 05/25/24 10:28 metoprolol Allergy Unknown Verified 03/02/24 10:31 Vital Signs Vital Signs - 24 hr 05/14/24 08:04 05/14/24 09:50 05/14/24 09:51 Temperature 97.3 F L Pulse Rate 82 80 80 Respiratory Rate 20 21 H 26 H Blood Pressure 97/55 L 89/48 L Pulse Oximetry 96 90 94 Oxygen Delivery Room Air 05/14/24 11:52 Temperature Pulse Rate 80 Respiratory Rate 20 Blood Pressure 90/50 L Pulse Oximetry 97 Oxygen Delivery Exam Narrative: General: In no acute distress, well nourished, appears weak Head: atraumatic, no encephalopathy Eyes: EOMI, PERRLA, sclera clear ENT: moist mucous membranes, nasal passages clear Neck: supple, no JVD, no adenopathy, trachea midline Cardiac: Normal S1 and S2. No murmur, gallops or friction rubs, peripheral pulses intact. Respiratory: crackles noted in left lung base , no adventitious lung sounds, currently on room air Gastrointestinal: soft, non-distended, non-tender, normoactive bowel sounds. : voiding without difficulty. Extremities: moves all extremities well, no edema Skin: clean, dry, intact. No wounds or lesions. Neuro: Alert and oriented x3, cranial nerves intact, no neuro deficits. Psych: normal mood, normal affect, interactive H&P: Results Labs Labs: Short CBC 05/14/24 Range/Units 08:26 WBC 16.2 H (4.5-10.0) K/mm3 Hgb 11.6 L (14.0-18.0) g/dL Hct 35.3 L (42.0-52.0) % Plt Count 231 (150-375) k/mm3 [facility] 05/14/24 08:26 Sodium 139 Potassium 4.1 Chloride 102 Carbon Dioxide 20 L BUN 76 H D Creatinine 3.30 H Glucose 192 H Calcium 8.3 L Liver Function 05/14/24 Range/Units 08:26 Total Bilirubin 2.0 H (0.2-1.3) mg/dL AST 40 (17-59) U/L ALT 18 (6-50) U/L Alkaline Phosphatase 84 (38-126) U/L Albumin 3.7 (3.5-5.1) g/dL Imaging Chest x-ray: Radiologist's impression: XR chest 2V Ordering provider: Vince Olivares MD History: 83 years Male with . near syncope, covid+ . Comparison: August 14, 2023 FINDINGS: MEDIASTINUM: The cardiac silhouette is not enlarged. Left bipolar pacemaker. LUNGS: No effusions or pneumothorax. Opacity is seen posteriorly in the lateral view projected over the spine inferiorly which may be a mass or pneumonia. CT evaluation advised. Prominent markings in the lower lobes. OTHER: No free air under the diaphragm. Bowel is seen under the right hemidiaphragm. IMPRESSION: Opacity projected over the spine in the lateral view which may be a mass or pneumonia in the lower lobes area. CT evaluation advised. Reviewed, dictated and finalized at location A. Chest CT: Radiologist's impression: EXAMINATION:CT diagnostic chest wo con DATE: 05/14/2024 09:14 INDICATION: Syncope. COVID-19 positive. TECHNIQUE: Computed tomography (CT) of the chest was performed without intravenous contrast. Automated exposure control and iterative reconstruction technique were employed. The dose-length product (DLP) was 395.33 mGy-cm. COMPARISON: Chest 2 views 05/14/2024 FINDINGS: There are airspace and groundglass opacities with air bronchograms in left lower lobe, consistent with pneumonia. There is focal mild bronchiectasis in right upper lobe associated with a cluster of nodules measuring up to 4 mm, likely recurrent or chronic infection. There is a trace left pleural effusion. There is left atrial and left ventricular enlargement of the heart. There are coronary artery calcifications. No pericardial effusion. There is a left chest wall pacer with leads in the right atrium and right ventricle. There are bridging endplate osteophytes at multiple levels in the spine, consistent with diffuse idiopathic skeletal hyperostosis (DISH). There is mild chronic anterior wedging of multiple vertebral bodies. IMPRESSION: 1. Left lower lobe pneumonia. Reviewed, dictated and finalized at location A. Assessment and Plan Assessment and plan (1) Septic shock: Code(s): A41.9 - Sepsis, unspecified organism; R65.21 - Severe sepsis with septic shock Status: Acute Assessment and Plan: 05/14/24: * Patient initially meeting septic shock criteria with elevated white blood cell count of 16.2, lactic acid 2.5, elevated respiratory rate, hypotension * Blood cultures were obtained and are pending * Chest x-ray showing opacity projected over the spine in the lateral view which may be mass or pneumonia in the lower lobe area * Chest CT shown left lower lobe pneumonia with mild bronchiectasis and right upper lobe associated with a cluster of nodules measuring up to 4 mm, trace left pleural effusion. * Continue cardiac monitoring * Patient was given 1 L of normal saline while in the ED and started on IV fluids however we did stop those IV fluids due to his congestive heart failure with reduced ejection fraction. (2) Lactic acidosis: Code(s): E87.20 - Acidosis, unspecified Status: Acute Assessment and Plan: 05/14/24: * Lactic acid 2.5 initially * Will repeat lab (3) Community acquired pneumonia: Code(s): J18.9 - Pneumonia, unspecified organism Status: Acute Assessment and Plan: 05/14/24: * Chest x-ray showing opacity projected over the spine in the lateral view which may be a mass or pneumonia in lower lobe area * Chest CT showing left lower lobe pneumonia, mild bronchiectasis and right upper lobe associated with a cluster of nodules measuring up to 4 mm, trace left pleural effusion. * Patient started on Rocephin and azithromycin for community-acquired pneumonia * Will start DuoNebs * Currently on room air * Will check urine strep, urine Legionella, mycoplasma * Will also check an MRSA PCR (4) COVID-19: Code(s): U07.1 - COVID-19 Status: Acute Assessment and Plan: 05/14/24: * Patient positive for COVID * Currently on room air * See above plan of care (5) Acute kidney injury: Code(s): N17.9 - Acute kidney failure, unspecified Status: Acute Assessment and Plan: 05/14/24: * Appears to be acute on chronic kidney disease * Creatinine 3.3 * Baseline appears to run 1.5-1.6 according to our EMR * Will hold Entresto and Lasix (6) Diabetes mellitus: Code(s): E11.9 - Type 2 diabetes mellitus without complications Status: Chronic Assessment and Plan: 05/14/24: * Blood sugars ranging 141-192 * Hgb A1C 7.9 on 03/16/2022 * Will repeat hemoglobin A1c * Accu checks AC/HS * Moderate dose SSI ordered * Patient is not currently on any home medication * hypoglycemic protocol in place * Diabetic diet ordered (7) Dyslipidemia: Code(s): E78.5 - Hyperlipidemia, unspecified Status: Chronic Assessment and Plan: 05/14/24: * Continue aspirin and atorvastatin (8) HTN (hypertension), benign: Code(s): I10 - Essential (primary) hypertension Status: Chronic Assessment and Plan: 05/14/24: * Blood pressure ranging 89/48 to 97/55 * Likely low due to septic shock * Will hold medications for now (9) Pacemaker: Code(s): Z95.0 - Presence of cardiac pacemaker Status: Chronic Assessment and Plan: 05/14/24: * V paced with a rate of 80 (10) Heart failure with reduced ejection fraction: Code(s): I50.20 - Unspecified systolic (congestive) heart failure Status: Chronic Assessment and Plan: 05/14/24: * Patient was reported to have syncopal episode at his nursing facility * Last echo 08/14/2023 was reviewed and showed a severely reduced LV systolic function with an estimated EF of 30-35%, moderate concentric increased left ventricular wall thickening, diastolic dysfunction. * Patient normally on Coreg, Jardiance, Lasix, Entresto . Jardiance restarted, the rest are on hold due to hypotension and acute kidney injury * Patient was given 1 L of normal saline in the ED and IV fluids were stopped * Will repeat echo Quality VTE Prophylaxis VTE prophylaxis: pharmacologic ordered Hospitalist MIPS Advance Care Plan I have confirmed that the patient's Advanced Care Plan is present, code status is documented, or surrogate decision maker is listed in patient medical record.: Yes Medication Reconciliation I have utilized all available resources to obtain, update and review the patients current medications (includes all prescriptions, OTC, herbals, cannabis, and nutritional supplements).: Yes
[2024-05-14 15:38] LABS: Reflex Lactic Acid Yes or No Add Lactic
[2024-05-14 15:48] LABS: Hemoglobin A1C 6.7 % (<5.7)
[2024-05-14 15:57] LABS: Glucose Point of Care 175 mg/dl (65-105)
[2024-05-14] MEDS: PERFLUTREN LIPID MICROSPHERES 1.5 ML VIAL DILUTED TO 10 ML TOTAL VOLUME IV PUSH (16:00)
--- NOTE | 2024-05-14 16:50 | IVDEFINITY ---
Prior to administration of IV Definity the patient was educated on the risks and benefits of the imaging enhancing agent including potential adverse side effects. The patient verbalized understanding. Allergies were verified. No exclusion criteria were identified and at least one of the following inclusion criteria were met: 1) physician request, 2) patient technically difficult to image (per the [place] [employer] guidelines of two or more segments not discernable within the apical view), or 3) questionable left ventricular function. ?
[2024-05-14 19:30] LABS: Influenza A QL RT-PCR Negative (Negative); Influenza B QL RT-PCR Negative (Negative); RSV RNA, RT-PCR Negative (Negative); SARS-CoV-2 RNA PCR Positive (Negative)
[2024-05-14 20:13] LABS: MRSA (PCR) NOT DETECTED (NOT DETECTE)
[2024-05-14 20:36] LABS: Glucose Point of Care 206 mg/dl (65-105)
[2024-05-14] MEDS: INSULIN ASPART (*BKC) 100 UNITS/ML SUB-Q (20:51)
[2024-05-14] MEDS: ATORVASTATIN 40 MG TABLET 80 MG PO (20:51)
[2024-05-14] MEDS: ALBUTEROL SULFATE (*SP) AEROSOL 1 PUFF 2 PUFF INHALATION (21:05)
[2024-05-14 22:43] LABS: Add Urine Microscopic? NO; Appearance Urine Clear (Clear); Bilirubin Urine Negative (Negative); Blood Urine Negative (Negative); Color Urine Yellow (Yellow); Glucose Urine UA 3+ mg/dL (Negative); Ketones Urine Negative (Negative); Leukocyte Esterase Ur Negative LEU/UL (Negative); Nitrate Urine Negative (Negative); Protein Urine Negative (Negative); Specific Grav Ur 1.018 (1.001-1.035); Urobilinogen Urine 0.2 mg/dL (<2.0)
[2024-05-14] MEDS: SODIUM CHLORIDE 0.9% IV 1,000 ML 100 ML IV CONT (22:57)
[2024-05-15] VITALS (16 sets, daily range): BP systolic 94–121; BP diastolic 37–92; PULSE 79–84; RESP 14–20; TEMP 35.8–36.6; O2SAT 96–100
[2024-05-15] MEDS: ALBUTEROL SULFATE (*SP) AEROSOL 1 PUFF 2 PUFF INHALATION ×4 (02:27→21:03)
[2024-05-15 06:42] LABS: Glucose Point of Care 150 mg/dl (65-105)
[2024-05-15 07:57] LABS: Basophils Percent Auto 0.1 % (0.2-1.2); Eosinophils Percent Auto 0.1 % (0-4.4); Hematocrit 32.8 % (42.0-52.0); Hemoglobin 10.6 g/dL (14.0-18.0); Immature Granulocyte Absolute 0.06 K/mm3 (0.00-0.031); Immature Granulocyte Percent A 0.4 % (0-0.5); Lymphocytes Absolute Auto 0.64 K/mm3 (0.9-3.2); Lymphocytes Percent Auto 4.5 % (18.3-44.2); Mean Corpuscular HGB Conc 32.3 g/dl (32-36); Mean Corpuscular Hemoglobin 31.3 pg (26-34); Mean Corpuscular Volume 96.8 fl (80-100); Mean Platelet Volume 10.2 fl (7.4-10.4); Monocytes Absolute Auto 0.8 K/mm3 (0.1-0.6); Monocytes Percent Auto 5.5 % (2.6-8.5); Neutrophils Absolute Auto 12.8 K/mm3 (1.3-6.7); Neutrophils Percent Auto 89.4 % (45.5-73.1); Platelet Count Result 224 k/mm3 (150-375); Red Blood Count 3.39 M/mm3 (4.6-6.20); Red Cell Distribution Width 14.2 % (11.5-14.5); White Blood Count 14.3 K/mm3 (4.5-10.0)
[2024-05-15 08:22] LABS: Alanine Aminotransferase 29 U/L (6-50); Albumin Level 3.2 g/dL (3.5-5.1); Alkaline Phosphatase 88 U/L (38-126); Anion Gap 9 mmol/L (4-12); Aspartate Amino Transferase 68 U/L (17-59); Bilirubin,Total 1.2 mg/dL (0.2-1.3); Blood Urea Nitrogen 75 mg/dL (9-20); Calcium 7.9 mg/dL (8.4-10.2); Carbon Dioxide 25 mmol/L (22-30); Chloride 104 mmol/L (98-107); Estimated CRCL calculation 17 ml/min; Estimated Glomerular Filt Rate 21; Glucose 139 mg/dL (65-110); Magnesium 2.3 mg/dL (1.6-2.3); Potassium 3.8 mmol/L (3.4-5.0); Sodium 138 mmol/L (137-145)
[2024-05-15] MEDS: ASPIRIN 81 MG ENTERIC TABLET PO (08:53)
[2024-05-15] MEDS: EMPAGLIFLOZIN 25 MG TABLET PO (08:53)
[2024-05-15] MEDS: PANTOPRAZOLE 40 MG TABLET PO (08:53)
[2024-05-15] MEDS: CHOLECALCIFEROL 1,000 UNITS TABLET 1000 UNITS PO (08:53)
[2024-05-15] MEDS: AZITHROMYCIN 500 MG/NS 250 ML 500 MG/250 ML BAG 250 MG IVPB (09:14)
--- NOTE | 2024-05-15 09:30 | P.PNIM_ITS ---
Progress Note: A&P Assessment and Plan (1) Septic shock: Code(s): A41.9 - Sepsis, unspecified organism; R65.21 - Severe sepsis with septic shock Status: Acute Assessment and Plan: 05/14/24: * Patient initially meeting septic shock criteria with elevated white blood cell count of 16.2, lactic acid 2.5, elevated respiratory rate, hypotension * Blood cultures were obtained and are pending * Chest x-ray showing opacity projected over the spine in the lateral view which may be mass or pneumonia in the lower lobe area * Chest CT shown left lower lobe pneumonia with mild bronchiectasis and right upper lobe associated with a cluster of nodules measuring up to 4 mm, trace left pleural effusion. * Continue cardiac monitoring * Patient was given 1 L of normal saline while in the ED and started on IV fluids however we did stop those IV fluids due to his congestive heart failure with reduced ejection fraction. 05/15/24: * White blood cell count down to 14.3, still hypotensive * Lactic acid 3.0> 2.0 * Blood cultures are showing no growth to date on preliminary read * UA was negative for bacteria * Continue azithromycin and Rocephin * Will likely transition to oral antibiotic tomorrow (2) Lactic acidosis: Code(s): E87.20 - Acidosis, unspecified Status: Acute Assessment and Plan: 05/14/24: * Lactic acid 2.5 initially * Will repeat lab 05/15/24: * Lactic acid 2.0 * Resolved (3) Community acquired pneumonia: Code(s): J18.9 - Pneumonia, unspecified organism Status: Acute Assessment and Plan: 05/14/24: * Chest x-ray showing opacity projected over the spine in the lateral view which may be a mass or pneumonia in lower lobe area * Chest CT showing left lower lobe pneumonia, mild bronchiectasis and right upper lobe associated with a cluster of nodules measuring up to 4 mm, trace left pleural effusion. * Patient started on Rocephin and azithromycin for community-acquired pneumonia * Will start DuoNebs * Currently on room air * Will check urine strep, urine Legionella, mycoplasma * Will also check an MRSA PCR 05/15/24: * Continue azithromycin and Rocephin * Urine strep, urine Legionella, mycoplasma pending * MRSA negative (4) COVID-19: Code(s): U07.1 - COVID-19 Status: Acute Assessment and Plan: 05/14/24: * Patient positive for COVID * Currently on room air * See above plan of care 05/15/24: * Repeat COVID test was positive * See above plan of care (5) Acute kidney injury: Code(s): N17.9 - Acute kidney failure, unspecified Status: Acute Assessment and Plan: 05/14/24: * Appears to be acute on chronic kidney disease * Creatinine 3.3 * Baseline appears to run 1.5-1.6 according to our EMR * Will hold Entresto and Lasix 05/15/24: * Creatinine down to 2 .90 * Will continue to hold Entresto and Lasix (6) Diabetes mellitus: Code(s): E11.9 - Type 2 diabetes mellitus without complications Status: Chronic Assessment and Plan: 05/14/24: * Blood sugars ranging 141-192 * Hgb A1C 7.9 on 03/16/2022 * Will repeat hemoglobin A1c * Accu checks AC/HS * Moderate dose SSI ordered * Patient is not currently on any home medication * hypoglycemic protocol in place * Diabetic diet ordered 05/15/24: * Blood sugars ranging 150-206 * Repeat hemoglobin A1c was 6.7 * Continue with current treatment plan (7) Dyslipidemia: Code(s): E78.5 - Hyperlipidemia, unspecified Status: Chronic Assessment and Plan: 05/14/24: * Continue aspirin and atorvastatin 05/15/24: * No change to current treatment plan (8) HTN (hypertension), benign: Code(s): I10 - Essential (primary) hypertension Status: Chronic Assessment and Plan: 05/14/24: * Blood pressure ranging 89/48 to 97/55 * Likely low due to septic shock * Will hold medications for now 05/15/24: * Blood pressure still running low * Will continue to hold medications * Keep in IMU today due to the hypotension * Net negative fluid balance, will give 500ml bolus today (9) Pacemaker: Code(s): Z95.0 - Presence of cardiac pacemaker Status: Chronic Assessment and Plan: 05/14/24: * V paced with a rate of 80 05/15/24: * No change (10) Heart failure with reduced ejection fraction: Code(s): I50.20 - Unspecified systolic (congestive) heart failure Status: Chronic Assessment and Plan: 05/14/24: * Patient was reported to have syncopal episode at his nursing facility * Last echo 08/14/2023 was reviewed and showed a severely reduced LV systolic function with an estimated EF of 30-35%, moderate concentric increased left ventricular wall thickening, diastolic dysfunction. * Patient normally on Coreg, Jardiance, Lasix, Entresto . Jardiance restarted, the rest are on hold due to hypotension and acute kidney injury * Patient was given 1 L of normal saline in the ED and IV fluids were stopped * Will repeat echo 05/15/24: * Echocardiogram showing normal LV systolic function with an estimated EF of 55- 60%, mild concentric increased left ventricular wall thickness, diastolic dysfunction. Time Spent With Patient Time with patient: Greater than 35 minutes Subjective Date/time seen: 05/15/24 09:30 Interval history: Interval history: This an 83-year-old male with significant past medical history of congestive heart failure with reduced ejection fraction, anxiety, coronary artery disease, diabetes mellitus, hypertension, ventricular pacemaker, former smoker who presented to the hospital for evaluation of syncopal episode and was found to be positive for COVID. Patient reports the following history of presenting illness. He states that he started to feel bad with fever and chills at his nursing facility and they did a home COVID test which was found to be positive on Monday03/09/24. He was reported to have a syncopal episode at his facility earlier today and decided to send patient to the hospital for further evaluation. Patient denies any fever, chills, nausea, vomiting, diarrhea, abdominal pain, chest pain, shortness a breath. He is currently on room air with oxygen saturation of 97%. He does appear to be fatigued and weak. Patient initially meeting sepsis/septic shock criteria with a respiratory rate 21-26, hypotension, elevated lactic acid, elevated white blood cell count, and known source of infection. Workup in the hospital includes chest x-ray which shown opacity projected over the spine and the lateral view which may be a mass or pneumonia and the lower lobe. CT of the chest showed left lower lobe pneumonia, mild bronchiectasis in right upper lobe associated with a cluster of nodules measuring up to 4 mm, trace left pleural effusion. Initial labs shown a white blood cell count of 16.2, RBC 3.69, hemoglobin 11.6, anion gap 17, bicarb 20, creatinine 3.3, GFR 18, lactic acid 2.5, total bili 2.0, liver enzymes were normal. Blood cultures were obtained and are pending. Last echo was reviewed from 08/14/2023 and shown a severely reduced LV systolic function with an estimated EF of 30-35%, diastolic dysfunction, moderate concentric increased left ventricular wall thickness, moderately enlarged left atrium, severely enlarged right atrium, mild aortic valve sclerosis, mild mitral valve regurgitation. Patient was given azithromycin, Rocephin, and 1 L of normal saline while in the ED. 05/15/24: Patient denies any new complaints today. Labs and imaging reviewed. He is currently room air, vital signs are stable however blood pressure still labile, he is afebrile. Review of Systems Review of Systems: All systems reviewed & are unremarkable except as noted in HPI and below Constitutional: Constitutional: Reports as per HPI and Reports no additional constitutional complaints Eyes: Eyes: Reports as per HPI and Reports no additional eye complaints ENT: Reports system reviewed and no additional complaints, except as documented and Reports as per HPI Cardiovascular: Cardiovascular: Reports as per HPI and Reports no additional cardiovascular complaints Respiratory: Respiratory: Reports as per HPI and Reports no additional respiratory complaints Gastrointestinal: Gastrointestinal: Reports as per HPI and Reports no additional gastrointestinal complaints Genitourinary: Genitourinary: Reports no additional male genitourinary complaints and Reports as per HPI Musculoskeletal: Musculoskeletal: Reports no additional musculoskeletal complaints and Reports as per HPI Integumentary/Breasts: Skin/Breast: Reports system reviewed and no additional complaints, except as docu and Reports as per HPI Neurologic: Reports system reviewed and no additional complaints, except as documented and Reports as per HPI Psychiatric: Psychiatric: Reports no additional psychiatric complaints and Reports as per HPI Exam Narrative: General: In no acute distress, well nourished, appears weak Cardiac: Normal S1 and S2. No murmur, gallops or friction rubs, peripheral pulses intact. Respiratory: crackles noted in lung bases, no adventitious lung sounds, currently on room air Gastrointestinal: soft, non-distended, non-tender, normoactive bowel sounds. : voiding without difficulty. Neuro: Alert and oriented x3 Objective Data Vital Signs Vital Signs: Vital Signs - 24 hr 05/14/24 09:50 05/14/24 09:51 05/14/24 11:52 Temperature Pulse Rate 80 80 80 Respiratory Rate 21 H 26 H 20 Blood Pressure 89/48 L 90/50 L Pulse Oximetry 90 94 97 Oxygen Delivery Fraction of Inspired Oxygen 05/14/24 16:00 05/14/24 14:00 05/14/24 16:00 Temperature 97.4 F L Pulse Rate 80 80 80 Respiratory Rate 20 Blood Pressure 84/43 L Pulse Oximetry 93 Oxygen Delivery Fraction of Inspired Oxygen 05/14/24 16:00 05/14/24 18:00 05/14/24 20:00 Temperature 97.5 F L Pulse Rate 80 80 79 Respiratory Rate 20 14 Blood Pressure 84/63 L Pulse Oximetry 93 97 Oxygen Delivery Room Air Fraction of Inspired Oxygen 05/14/24 20:00 05/14/24 20:00 05/14/24 22:00 Temperature Pulse Rate 79 79 79 Respiratory Rate 14 Blood Pressure Pulse Oximetry 97 Oxygen Delivery Room Air Fraction of Inspired Oxygen 05/14/24 23:55 05/15/24 00:00 05/15/24 00:00 Temperature 97.8 F Pulse Rate 79 84 84 Respiratory Rate 14 14 Blood Pressure 94/37 L Pulse Oximetry 99 99 Oxygen Delivery Room Air Fraction of Inspired Oxygen 05/15/24 04:00 05/15/24 04:00 05/15/24 04:00 Temperature 97.5 F L Pulse Rate 80 80 80 Respiratory Rate 20 20 Blood Pressure 97/45 L Pulse Oximetry 100 100 Oxygen Delivery Room Air Fraction of Inspired Oxygen 05/15/24 06:00 05/15/24 07:18 05/15/24 07:18 Temperature Pulse Rate 80 80 Respiratory Rate 18 Blood Pressure Pulse Oximetry 100 Oxygen Delivery Room Air Fraction of Inspired Oxygen 21 05/15/24 08:00 Temperature 97.1 F L Pulse Rate 80 Respiratory Rate 20 Blood Pressure 94/41 L Pulse Oximetry 97 Oxygen Delivery Fraction of Inspired Oxygen Intake/Output Intake/Output: Intake & Output 05/12/24 05/13/24 05/14/24 05/15/24 23:59 23:59 23:59 23:59 Intake Total 1820 1110 Output Total 0 1300 Balance 1820 -190 Meds/Results Medications: Active Medications Generic Name Dose Route Start Last Admin Trade Name Freq PRN Reason Stop Dose Admin Albuterol 2 puff 05/14/24 20:00 05/15/24 07:18 Albuterol Sulfate (*Sp) Aerosol 1 Puff INHALATION 2 puff Q6HRT SUSIE Administration Aspirin 81 mg 05/15/24 09:00 05/15/24 08:53 Aspirin 81 Mg Enteric Tablet PO 81 mg QAM SUSIE Administration Atorvastatin Calcium 80 mg 05/14/24 21:00 05/14/24 20:51 Atorvastatin 40 Mg Tablet PO 80 mg HS SUSIE Administration Dextrose 12.5 gm 05/14/24 13:23 Dextrose 50% 25 Gm/50 Ml Syringe IV PUSH PRN PRN Hypoglycemia Protocol Empagliflozin 25 mg 05/15/24 09:00 05/15/24 08:53 Empagliflozin 25 Mg Tablet PO 25 mg DAILY SUSIE Administration Glucagon 1 mg 05/14/24 13:23 Glucagon For Inj 1 Mg Vial IM PRN PRN Hypoglycemia Protocol Glucose 15 gm 05/14/24 13:23 Glucose Oral Gel 15 Gm Of Glucse In 37.5 Gm Tube PO PRN PRN Hypoglycemia Protocol Ceftriaxone Sodium 1 gm in 50 mls @ 100 mls/hr 05/15/24 09:00 05/15/24 08:53 Rocephin 1 Gm/Ns 50 Ml IVPB 100 mls/hr Q24H SUSIE Administration Azithromycin 500 mg in 250 mls @ 250 mls/hr 05/15/24 09:00 05/15/24 09:14 Zithromax IVPB 250 mls/hr Q24H SUSIE Administration Dextrose 1,000 mls @ 100 mls/hr 05/14/24 13:23 Dextrose 5% 1,000 Ml IVPB PRN PRN Hypoglycemia Protocol Sodium Chloride 1,000 mls @ 100 mls/hr 05/14/24 21:20 05/14/24 22:57 Normal Saline Iv IV CONT 100 mls/hr .Q10H SUSIE Administration Insulin Aspart 3 - 6 units 05/14/24 17:00 05/14/24 17:25 Insulin Aspart (*Bkc) 100 Units/Ml SUB-Q Not Given TIDWM SUSIE Protocol Insulin Aspart 1 - 3 units 05/14/24 21:00 05/14/24 20:51 Insulin Aspart (*Bkc) 100 Units/Ml SUB-Q 1 units HS SUSIE Administration Protocol Pantoprazole Sodium 40 mg 05/15/24 09:00 05/15/24 08:53 Pantoprazole 40 Mg Tablet PO 40 mg QAM SUSIE Administration Vitamin D 1,000 units 05/15/24 09:00 05/15/24 08:53 Cholecalciferol 1,000 Units Tablet PO 1,000 units DAILY SUSIE Administration Radiology Results: ITS Impressions Chest X-Ray 05/14/24 09:04 IMPRESSION: Opacity projected over the spine in the lateral view which may be a mass or pneumonia in the lower lobes area. CT evaluation advised. Chest CT 05/14/24 09:15 IMPRESSION: 1. Left lower lobe pneumonia. Labs Labs: Laboratory Results - last 24 hr 05/14/24 05/14/24 05/14/24 08:26 12:29 15:48 WBC RBC Hgb Hct MCV MCH MCHC RDW Plt Count MPV Immature Gran % (Auto) Neut % (Auto) Lymph % (Auto) [place] % (Auto) Eos % (Auto) Baso % (Auto) Lymph # (Auto) [place] # (Auto) Eos # (Auto) Baso # (Auto) Abs Immat Gran (auto) Absolute Neuts (auto) Absolute Nucleated RBC Nucleated RBC % Sodium Potassium Chloride Carbon Dioxide Anion Gap BUN Creatinine Estim Creat Clear Calc Estimated GFR Glucose POC Capillary Glucose Hemoglobin A1c 6.7 H Lactic Acid 2.5 H 3.0 H Calcium Magnesium Total Bilirubin AST ALT Alkaline Phosphatase Total Protein Albumin Urine Color Urine Appearance Urine pH Ur Specific [place] Urine Protein Urine Glucose (UA) Urine Ketones Ur Blood (Man) Urine Nitrate Urine Bilirubin Urine Urobilinogen Leukocyte Esterase Rfl Nasal MRSA (PCR) Influenza A (RT-PCR) Influenza B (RT-PCR) RSV (RT-PCR) SARS-CoV-2 RNA (RT-PCR) 05/14/24 05/14/24 05/14/24 15:53 18:35 18:45 WBC RBC Hgb Hct MCV MCH MCHC RDW Plt Count MPV Immature Gran % (Auto) Neut % (Auto) Lymph % (Auto) [place] % (Auto) Eos % (Auto) Baso % (Auto) Lymph # (Auto) [place] # (Auto) Eos # (Auto) Baso # (Auto) Abs Immat Gran (auto) Absolute Neuts (auto) Absolute Nucleated RBC Nucleated RBC % Sodium Potassium Chloride Carbon Dioxide Anion Gap BUN Creatinine Estim Creat Clear Calc Estimated GFR Glucose POC Capillary Glucose 175 H Hemoglobin A1c Lactic Acid 2.0 Calcium Magnesium Total Bilirubin AST ALT Alkaline Phosphatase Total Protein Albumin Urine Color Urine Appearance Urine pH Ur Specific [place] Urine Protein Urine Glucose (UA) Urine Ketones Ur Blood (Man) Urine Nitrate Urine Bilirubin Urine Urobilinogen Leukocyte Esterase Rfl Nasal MRSA (PCR) Not detected Influenza A (RT-PCR) Negative Influenza B (RT-PCR) Negative RSV (RT-PCR) Negative SARS-CoV-2 RNA (RT-PCR) Positive A 05/14/24 05/14/24 05/15/24 20:28 22:35 06:38 WBC RBC Hgb Hct MCV MCH MCHC RDW Plt Count MPV Immature Gran % (Auto) Neut % (Auto) Lymph % (Auto) [place] % (Auto) Eos % (Auto) Baso % (Auto) Lymph # (Auto) [place] # (Auto) Eos # (Auto) Baso # (Auto) Abs Immat Gran (auto) Absolute Neuts (auto) Absolute Nucleated RBC Nucleated RBC % Sodium Potassium Chloride Carbon Dioxide Anion Gap BUN Creatinine Estim Creat Clear Calc Estimated GFR Glucose POC Capillary Glucose 206 H 150 H Hemoglobin A1c Lactic Acid Calcium Magnesium Total Bilirubin AST ALT Alkaline Phosphatase Total Protein Albumin Urine Color Yellow Urine Appearance Clear Urine pH 5.0 Ur Specific [place] 1.018 Urine Protein Negative Urine Glucose (UA) 3+ H Urine Ketones Negative Ur Blood (Man) Negative Urine Nitrate Negative Urine Bilirubin Negative Urine Urobilinogen 0.2 Leukocyte Esterase Rfl Negative Nasal MRSA (PCR) Influenza A (RT-PCR) Influenza B (RT-PCR) RSV (RT-PCR) SARS-CoV-2 RNA (RT-PCR) 05/15/24 07:52 WBC 14.3 H RBC 3.39 L Hgb 10.6 L Hct 32.8 L MCV 96.8 MCH 31.3 MCHC 32.3 RDW 14.2 Plt Count 224 MPV 10.2 Immature Gran % (Auto) 0.4 Neut % (Auto) 89.4 H Lymph % (Auto) 4.5 L [place] % (Auto) 5.5 Eos % (Auto) 0.1 Baso % (Auto) 0.1 L Lymph # (Auto) 0.64 L [place] # (Auto) 0.8 H Eos # (Auto) 0.0 Baso # (Auto) 0.0 Abs Immat Gran (auto) 0.06 H Absolute Neuts (auto) 12.8 H Absolute Nucleated RBC 0.000 Nucleated RBC % 0.0 Sodium 138 Potassium 3.8 Chloride 104 Carbon Dioxide 25 Anion Gap 9 BUN 75 H Creatinine 2.90 H Estim Creat Clear Calc 17 Estimated GFR 21 L Glucose 139 H POC Capillary Glucose Hemoglobin A1c Lactic Acid Calcium 7.9 L Magnesium 2.3 Total Bilirubin 1.2 AST 68 H ALT 29 Alkaline Phosphatase 88 Total Protein 6.0 L Albumin 3.2 L Urine Color Urine Appearance Urine pH Ur Specific [place] Urine Protein Urine Glucose (UA) Urine Ketones Ur Blood (Man) Urine Nitrate Urine Bilirubin Urine Urobilinogen Leukocyte Esterase Rfl Nasal MRSA (PCR) Influenza A (RT-PCR) Influenza B (RT-PCR) RSV (RT-PCR) SARS-CoV-2 RNA (RT-PCR) Quality VTE Prophylaxis VTE prophylaxis: pharmacologic ordered Hospitalist [facility] Advance Care Plan I have confirmed that the patient's Advanced Care Plan is present, code status is documented, or surrogate decision maker is listed in patient medical record.: Yes Medication Reconciliation I have utilized all available resources to obtain, update and review the patients current medications (includes all prescriptions, OTC, herbals, cannabis, and nutritional supplements).: Yes
[2024-05-15] MEDS: SODIUM CHLORIDE 0.9% IV 1,000 ML 100 ML IV CONT ×2 (11:19→21:18)
[2024-05-15 11:26] LABS: Glucose Point of Care 169 mg/dl (65-105)
[2024-05-15 16:17] LABS: Glucose Point of Care 122 mg/dl (65-105)
[2024-05-15] MEDS: SODIUM CHLORIDE 0.9% IV 500 ML 250 ML IV CONT (16:57)
[2024-05-15 20:22] LABS: Glucose Point of Care 118 mg/dl (65-105)
[2024-05-15] MEDS: ATORVASTATIN 40 MG TABLET 80 MG PO (21:18)
[2024-05-16] VITALS (9 sets, daily range): BP systolic 81–105; BP diastolic 41–64; PULSE 79–84; RESP 16–20; TEMP 34.8–36.7; O2SAT 95–98
[2024-05-16] MEDS: ALBUTEROL SULFATE (*SP) AEROSOL 1 PUFF 2 PUFF INHALATION ×4 (02:42→20:26)
[2024-05-16 05:48] LABS: Basophils Percent Auto 0.2 % (0.2-1.2); Eosinophils Absolute Auto 0.1 K/mm3 (0-0.3); Eosinophils Percent Auto 0.8 % (0-4.4); Immature Granulocyte Absolute 0.08 K/mm3 (0.00-0.031); Immature Granulocyte Percent A 0.7 % (0-0.5); Lymphocytes Absolute Auto 0.73 K/mm3 (0.9-3.2); Lymphocytes Percent Auto 6.8 % (18.3-44.2); Mean Corpuscular HGB Conc 30.3 g/dl (32-36); Mean Corpuscular Hemoglobin 30.5 pg (26-34); Mean Corpuscular Volume 100.6 fl (80-100); Mean Platelet Volume 10.1 fl (7.4-10.4); Monocytes Absolute Auto 0.8 K/mm3 (0.1-0.6); Monocytes Percent Auto 7.1 % (2.6-8.5); Neutrophils Percent Auto 84.4 % (45.5-73.1); Platelet Count Result 231 k/mm3 (150-375); Red Blood Count 3.28 M/mm3 (4.6-6.20); Red Cell Distribution Width 14.1 % (11.5-14.5); White Blood Count 10.7 K/mm3 (4.5-10.0)
[2024-05-16 06:00] LABS: Alanine Aminotransferase 34 U/L (6-50); Albumin Level 3.1 g/dL (3.5-5.1); Alkaline Phosphatase 77 U/L (38-126); Anion Gap 15 mmol/L (4-12); Aspartate Amino Transferase 61 U/L (17-59); Blood Urea Nitrogen 65 mg/dL (9-20); Carbon Dioxide 16 mmol/L (22-30); Chloride 108 mmol/L (98-107); Estimated CRCL calculation 21 ml/min; Estimated Glomerular Filt Rate 26; Glucose 98 mg/dL (65-110); Potassium 3.7 mmol/L (3.4-5.0); Sodium 139 mmol/L (137-145)
[2024-05-16 06:31] LABS: Glucose Point of Care 104 mg/dl (65-105)
[2024-05-16 08:10] LABS: Glucose Point of Care 97 mg/dl (65-105)
--- NOTE | 2024-05-16 08:29 | PCPTNOTE ---
pt refused PT yecenia 08, stated he wants to sleep and not participate, will follow
--- NOTE | 2024-05-16 08:39 | PC.NURSE ---
Patient refused IV start by Vascular outsole beveler Kyle.
--- NOTE | 2024-05-16 10:48 | P.PNIM_ITS ---
Progress Note: A&P Assessment and Plan (1) Septic shock: Code(s): A41.9 - Sepsis, unspecified organism; R65.21 - Severe sepsis with septic shock Status: Acute Assessment and Plan: 05/14/24: * Patient initially meeting septic shock criteria with elevated white blood cell count of 16.2, lactic acid 2.5, elevated respiratory rate, hypotension * Blood cultures were obtained and are pending * Chest x-ray showing opacity projected over the spine in the lateral view which may be mass or pneumonia in the lower lobe area * Chest CT shown left lower lobe pneumonia with mild bronchiectasis and right upper lobe associated with a cluster of nodules measuring up to 4 mm, trace left pleural effusion. * Continue cardiac monitoring * Patient was given 1 L of normal saline while in the ED and started on IV fluids however we did stop those IV fluids due to his congestive heart failure with reduced ejection fraction. 05/15/24: * White blood cell count down to 14.3, still hypotensive * Lactic acid 3.0> 2.0 * Blood cultures are showing no growth to date on preliminary read * UA was negative for bacteria * Continue azithromycin and Rocephin * Will likely transition to oral antibiotic tomorrow 05/16/24: * White blood cell count down to 10.7 * Blood cultures are still showing no growth * Transition to oral Augmentin and azithromycin today * Blood pressure has improved (2) Community acquired pneumonia: Code(s): J18.9 - Pneumonia, unspecified organism Status: Acute Assessment and Plan: 05/14/24: * Chest x-ray showing opacity projected over the spine in the lateral view which may be a mass or pneumonia in lower lobe area * Chest CT showing left lower lobe pneumonia, mild bronchiectasis and right upper lobe associated with a cluster of nodules measuring up to 4 mm, trace left pleural effusion. * Patient started on Rocephin and azithromycin for community-acquired pneumonia * Will start DuoNebs * Currently on room air * Will check urine strep, urine Legionella, mycoplasma * Will also check an MRSA PCR 05/15/24: * Continue azithromycin and Rocephin * Urine strep, urine Legionella, mycoplasma pending * MRSA negative 05/16/24: * Change to azithromycin and Augmentin oral * Labs are still pending * Blood cultures are negative * PT and OT ordered (3) COVID-19: Code(s): U07.1 - COVID-19 Status: Acute Assessment and Plan: 05/14/24: * Patient positive for COVID * Currently on room air * See above plan of care 05/15/24: * Repeat COVID test was positive * See above plan of care 05/16/24: * No change (4) Acute kidney injury: Code(s): N17.9 - Acute kidney failure, unspecified Status: Acute Assessment and Plan: 05/14/24: * Appears to be acute on chronic kidney disease * Creatinine 3.3 * Baseline appears to run 1.5-1.6 according to our EMR * Will hold Entresto and Lasix 05/15/24: * Creatinine down to 2 .90 * Will continue to hold Entresto and Lasix 05/16/24: * Creatinine is 2.4 * Bicarb is 16 * Will start sodium bicarb tabs today * Will continue to hold Entresto and Lasix (5) Diabetes mellitus: Code(s): E11.9 - Type 2 diabetes mellitus without complications Status: Chronic Assessment and Plan: 05/14/24: * Blood sugars ranging 141-192 * Hgb A1C 7.9 on 03/16/2022 * Will repeat hemoglobin A1c * Accu checks AC/HS * Moderate dose SSI ordered * Patient is not currently on any home medication * hypoglycemic protocol in place * Diabetic diet ordered 05/15/24: * Blood sugars ranging 150-206 * Repeat hemoglobin A1c was 6.7 * Continue with current treatment plan 05/16/24: * Blood sugars ranging 97-104 * Continue with current treatment plan (6) Dyslipidemia: Code(s): E78.5 - Hyperlipidemia, unspecified Status: Chronic Assessment and Plan: 05/14/24: * Continue aspirin and atorvastatin 05/15/24: * No change to current treatment plan (7) HTN (hypertension), benign: Code(s): I10 - Essential (primary) hypertension Status: Chronic Assessment and Plan: 05/14/24: * Blood pressure ranging 89/48 to 97/55 * Likely low due to septic shock * Will hold medications for now 05/15/24: * Blood pressure still running low * Will continue to hold medications * Keep in IMU today due to the hypotension * Net negative fluid balance, will give 500ml bolus today 05/16/24: * Blood pressures improved 105/64 to 121/92 * Continue to trend (8) Pacemaker: Code(s): Z95.0 - Presence of cardiac pacemaker Status: Chronic Assessment and Plan: 05/14/24: * V paced with a rate of 80 05/15/24: * No change (9) Heart failure with reduced ejection fraction: Code(s): I50.20 - Unspecified systolic (congestive) heart failure Status: Chronic Assessment and Plan: 05/14/24: * Patient was reported to have syncopal episode at his nursing facility * Last echo 08/14/2023 was reviewed and showed a severely reduced LV systolic function with an estimated EF of 30-35%, moderate concentric increased left ventricular wall thickening, diastolic dysfunction. * Patient normally on Coreg, Jardiance, Lasix, Entresto . Jardiance restarted, the rest are on hold due to hypotension and acute kidney injury * Patient was given 1 L of normal saline in the ED and IV fluids were stopped * Will repeat echo 05/15/24: * Echocardiogram showing normal LV systolic function with an estimated EF of 55- 60%, mild concentric increased left ventricular wall thickness, diastolic dysfunction. 05/16/24: * Will continue to hold medication today Subjective Date/time seen: 05/16/24 10:48 Interval history: Interval history: This an 83-year-old male with significant past medical history of congestive heart failure with reduced ejection fraction, anxiety, coronary artery disease, diabetes mellitus, hypertension, ventricular pacemaker, former smoker who presented to the hospital for evaluation of syncopal episode and was found to be positive for COVID. Patient reports the following history of presenting illness. He states that he started to feel bad with fever and chills at his nursing facility and they did a home COVID test which was found to be positive on Monday03/09/24. He was reported to have a syncopal episode at his facility earlier today and decided to send patient to the hospital for further evaluation. Patient denies any fever, chills, nausea, vomiting, diarrhea, abdominal pain, chest pain, shortness a breath. He is currently on room air with oxygen saturation of 97%. He does appear to be fatigued and weak. Patient initially meeting sepsis/septic shock criteria with a respiratory rate 21-26, hypotension, elevated lactic acid, elevated white blood cell count, and known source of infection. Workup in the hospital includes chest x-ray which shown opacity projected over the spine and the lateral view which may be a mass or pneumonia and the lower lobe. CT of the chest showed left lower lobe pneumonia, mild bronchiectasis in right upper lobe associated with a cluster of nodules measuring up to 4 mm, trace left pleural effusion. Initial labs shown a white blood cell count of 16.2, RBC 3.69, hemoglobin 11.6, anion gap 17, bicarb 20, creatinine 3.3, GFR 18, lactic acid 2.5, total bili 2.0, liver enzymes were normal. Blood cultures were obtained and are pending. Last echo was reviewed from 08/14/2023 and shown a severely reduced LV systolic function with an estimated EF of 30-35%, diastolic dysfunction, moderate concentric increased left ventricular wall thickness, moderately enlarged left atrium, severely enlarged right atrium, mild aortic valve sclerosis, mild mitral valve regurgitation. Patient was given azithromycin, Rocephin, and 1 L of normal saline while in the ED. 05/16/24: Blood pressure has improved and patient is stable to move out of IMU today. He denies any new complaints. Labs reviewed. Review of Systems Review of Systems: All systems reviewed & are unremarkable except as noted in HPI and below Constitutional: Constitutional: Reports as per HPI and Reports no additional constitutional complaints Eyes: Eyes: Reports as per HPI and Reports no additional eye complaints ENT: Reports system reviewed and no additional complaints, except as documented and Reports as per HPI Cardiovascular: Cardiovascular: Reports as per HPI and Reports no additional cardiovascular complaints Respiratory: Respiratory: Reports as per HPI and Reports no additional respiratory complaints Gastrointestinal: Gastrointestinal: Reports as per HPI and Reports no additional gastrointestinal complaints Genitourinary: Genitourinary: Reports no additional male genitourinary complaints and Reports as per HPI Musculoskeletal: Musculoskeletal: Reports no additional musculoskeletal complaints and Reports as per HPI Integumentary/Breasts: Skin/Breast: Reports system reviewed and no additional complaints, except as docu and Reports as per HPI Neurologic: Reports system reviewed and no additional complaints, except as documented and Reports as per HPI Psychiatric: Psychiatric: Reports no additional psychiatric complaints and Reports as per HPI Exam Narrative: General: In no acute distress, appears weak Cardiac: Normal S1 and S2. No murmur, gallops or friction rubs, peripheral pulses intact. Respiratory: Lung sounds are clear, no adventitious lung sounds, currently on room air Gastrointestinal: soft, non-distended, non-tender, normoactive bowel sounds. : voiding without difficulty. Neuro: Alert and oriented x3 Objective Data Vital Signs Vital Signs: Vital Signs - 24 hr 05/15/24 11:51 05/15/24 13:40 05/15/24 12:00 Temperature 96.4 F L Pulse Rate 80 81 Respiratory Rate 20 18 Blood Pressure 97/37 L Pulse Oximetry 96 Oxygen Delivery Room Air 05/15/24 12:00 05/15/24 14:00 05/15/24 16:00 Temperature 96.8 F L Pulse Rate 81 81 79 Respiratory Rate 20 Blood Pressure 121/92 H Pulse Oximetry 99 Oxygen Delivery 05/15/24 16:00 05/15/24 16:00 05/15/24 18:00 Temperature Pulse Rate 79 79 Respiratory Rate Blood Pressure Pulse Oximetry Oxygen Delivery Room Air 05/15/24 20:00 05/15/24 21:04 05/15/24 21:04 Temperature 97.9 F Pulse Rate 80 81 Respiratory Rate 20 20 Blood Pressure 121/54 L Pulse Oximetry 99 99 Oxygen Delivery Room Air 05/15/24 23:56 05/15/24 20:00 05/15/24 20:00 Temperature 97.9 F Pulse Rate 80 80 Respiratory Rate 16 Blood Pressure 105/65 Pulse Oximetry 98 Oxygen Delivery Room Air 05/16/24 00:00 05/15/24 22:00 05/16/24 00:00 Temperature Pulse Rate 80 80 Respiratory Rate Blood Pressure Pulse Oximetry Oxygen Delivery Room Air 05/16/24 02:42 05/16/24 02:00 05/16/24 04:00 Temperature 97.8 F Pulse Rate 84 80 80 Respiratory Rate 18 20 Blood Pressure 105/64 Pulse Oximetry 97 Oxygen Delivery 05/16/24 04:00 05/16/24 04:00 05/16/24 06:00 Temperature Pulse Rate 84 79 Respiratory Rate Blood Pressure Pulse Oximetry Oxygen Delivery Room Air 05/16/24 08:02 05/16/24 08:00 05/16/24 08:00 Temperature 98.1 F Pulse Rate 80 Respiratory Rate 16 Blood Pressure 85/43 L Pulse Oximetry 98 96 98 Oxygen Delivery Room Air Room Air Intake/Output Intake/Output: Intake & Output 08/05/24 05/14/24 05/15/24 05/16/24 23:59 23:59 23:59 23:59 Intake Total 1820 3308.3 440 Output Total 0 1800 450 Balance 1820 1508.3 -10 Meds/Results Medications: Active Medications Generic Name Dose Route Start Last Admin Trade Name Freq PRN Reason Stop Dose Admin Albuterol 2 puff 05/14/24 20:00 05/16/24 08:01 Albuterol Sulfate (*Sp) Aerosol 1 Puff INHALATION 2 puff Q6HRT SUSIE Administration Amoxicillin/Clavulanate Potassium 1 tablet 05/16/24 09:00 Amoxicillin/Clavulanate K 500-125 Mg Tab PO Q12H SUSIE Aspirin 81 mg 05/15/24 09:00 05/15/24 08:53 Aspirin 81 Mg Enteric Tablet PO 81 mg QAM SUSIE Administration Atorvastatin Calcium 80 mg 05/14/24 21:00 05/15/24 21:18 Atorvastatin 40 Mg Tablet PO 80 mg HS SUSIE Administration Azithromycin 500 mg 05/16/24 09:00 Azithromycin 250 Mg Tablet PO DAILY [facility] Dextrose 12.5 gm 05/14/24 13:23 Dextrose 50% 25 Gm/50 Ml Syringe IV PUSH PRN PRN Hypoglycemia Protocol Empagliflozin 25 mg 05/15/24 09:00 05/15/24 08:53 Empagliflozin 25 Mg Tablet PO 25 mg DAILY SUSIE Administration Glucagon 1 mg 05/14/24 13:23 Glucagon For Inj 1 Mg Vial IM PRN PRN Hypoglycemia Protocol Glucose 15 gm 05/14/24 13:23 Glucose Oral Gel 15 Gm Of Glucse In 37.5 Gm Tube PO PRN PRN Hypoglycemia Protocol Dextrose 1,000 mls @ 100 mls/hr 05/14/24 13:23 Dextrose 5% 1,000 Ml IVPB PRN PRN Hypoglycemia Protocol Sodium Chloride 1,000 mls @ 100 mls/hr 05/14/24 21:20 05/16/24 08:38 Normal Saline Iv IV CONT Not Given .Q10H [facility] Insulin Aspart 3 - 6 units 05/14/24 17:00 05/16/24 08:37 Insulin Aspart (*Bkc) 100 Units/Ml SUB-Q Not Given TIDWM [facility] Protocol Insulin Aspart 1 - 3 units 05/14/24 21:00 05/15/24 21:08 Insulin Aspart (*Bkc) 100 Units/Ml SUB-Q Not Given HS [facility] Protocol Pantoprazole Sodium 40 mg 05/15/24 09:00 05/15/24 08:53 Pantoprazole 40 Mg Tablet PO 40 mg QAM SUSIE Administration Sodium Bicarbonate 650 mg 05/16/24 09:00 Sodium Bicarbonate Tab 650 Mg Tablet PO BID SUSIE Vitamin D 1,000 units 05/15/24 09:00 05/15/24 08:53 Cholecalciferol 1,000 Units Tablet PO 1,000 units DAILY SUSIE Administration Radiology Results: ITS Impressions Chest X-Ray 05/14/24 09:04 IMPRESSION: Opacity projected over the spine in the lateral view which may be a mass or pneumonia in the lower lobes area. CT evaluation advised. Chest CT 05/14/24 09:15 IMPRESSION: 1. Left lower lobe pneumonia. Labs Labs: Laboratory Results - last 24 hr 05/15/24 05/15/24 05/15/24 10:58 16:05 20:20 WBC RBC Hgb Hct MCV MCH MCHC RDW Plt Count MPV Immature Gran % (Auto) Neut % (Auto) Lymph % (Auto) [place] % (Auto) Eos % (Auto) Baso % (Auto) Lymph # (Auto) [place] # (Auto) Eos # (Auto) Baso # (Auto) Abs Immat Gran (auto) Absolute Neuts (auto) Absolute Nucleated RBC Nucleated RBC % Sodium Potassium Chloride Carbon Dioxide Anion Gap BUN Creatinine Estim Creat Clear Calc Estimated GFR Glucose POC Capillary Glucose 169 H 122 H 118 H Calcium Total Bilirubin AST ALT Alkaline Phosphatase Total Protein Albumin 05/16/24 05/16/24 05/16/24 05:33 06:27 08:06 WBC 10.7 H RBC 3.28 L Hgb 10.0 L Hct 33.0 L MCV 100.6 H MCH 30.5 MCHC 30.3 L RDW 14.1 Plt Count 231 MPV 10.1 Immature Gran % (Auto) 0.7 H Neut % (Auto) 84.4 H Lymph % (Auto) 6.8 L [place] % (Auto) 7.1 Eos % (Auto) 0.8 Baso % (Auto) 0.2 Lymph # (Auto) 0.73 L [place] # (Auto) 0.8 H Eos # (Auto) 0.1 Baso # (Auto) 0.0 Abs Immat Gran (auto) 0.08 H Absolute Neuts (auto) 9.0 H Absolute Nucleated RBC 0.000 Nucleated RBC % 0.0 Sodium 139 Potassium 3.7 Chloride 108 H Carbon Dioxide 16 L Anion Gap 15 H BUN 65 H D Creatinine 2.40 H Estim Creat Clear Calc 21 Estimated GFR 26 L Glucose 98 POC Capillary Glucose 104 97 Calcium 8.0 L Total Bilirubin 1.0 AST 61 H ALT 34 Alkaline Phosphatase 77 Total Protein 6.0 L Albumin 3.1 L Quality VTE Prophylaxis VTE prophylaxis: pharmacologic ordered Hospitalist MIPS Advance Care Plan I have confirmed that the patient's Advanced Care Plan is present, code status i s documented, or surrogate decision maker is listed in patient medical record.: Yes Medication Reconciliation I have utilized all available resources to obtain, update and review the patients current medications (includes all prescriptions, OTC, herbals, cannabis, and nutritional supplements).: Yes
--- NOTE | 2024-05-16 11:04 | PC.NURSE ---
SUZANNE Sears updated on patient wishes to discontinue medical care. Patient calm and pleasant, alert and oriented x3, request staff update his son on his wishes. SUZANNE Sears to discuss plan of care with son.
[2024-05-16 12:05] LABS: Glucose Point of Care 133 mg/dl (65-105)
--- NOTE | 2024-05-16 12:40 | PC.NURSE ---
Family at bedside.
--- NOTE | 2024-05-16 12:53 | PC.NURSE ---
Family ready with transfer to [place] with goal of hospice care. SUZANNE Sears notified of family wishes.
--- NOTE | 2024-05-16 13:56 | P.DS_ITS ---
DS: Admitting Diagnosis Discharge Date 05/17/24 Admitting Diagnosis Septic shock Lactic acidosis Community-acquired pneumonia COVID-19 Acute kidney injury Diabetes mellitus Dyslipidemia Hypertension Pacemaker Heart failure with reduced ejection fraction DS: Discharge Diagnosis Discharge Diagnosis (1) Septic shock: Code(s): A41.9 - Sepsis, unspecified organism; R65.21 - Severe sepsis with septic shock Status: Acute (2) Community acquired pneumonia: Code(s): J18.9 - Pneumonia, unspecified organism Status: Acute (3) COVID-19: Code(s): U07.1 - COVID-19 Status: Acute (4) Acute kidney injury: Code(s): N17.9 - Acute kidney failure, unspecified Status: Acute (5) Diabetes mellitus: Code(s): E11.9 - Type 2 diabetes mellitus without complications Status: Chronic (6) Dyslipidemia: Code(s): E78.5 - Hyperlipidemia, unspecified Status: Chronic (7) HTN (hypertension), benign: Code(s): I10 - Essential (primary) hypertension Status: Chronic (8) Pacemaker: Code(s): Z95.0 - Presence of cardiac pacemaker Status: Chronic (9) Heart failure with reduced ejection fraction: Code(s): I50.20 - Unspecified systolic (congestive) heart failure Status: Chronic DS: Summary Hospital Course Reason for hospitalization: Septic shock Lactic acidosis Community-acquired pneumonia COVID-19 Acute kidney injury Diabetes mellitus Dyslipidemia Hypertension Pacemaker Heart failure with reduced ejection fraction Hospital Course: This an 83-year-old male with significant past medical history of congestive heart failure with reduced ejection fraction, anxiety, coronary artery disease, diabetes mellitus, hypertension, ventricular pacemaker, former smoker who presented to the hospital for evaluation of syncopal episode and was found to be positive for COVID. Patient reports the following history of presenting illness. He states that he started to feel bad with fever and chills at his nursing facility and they did a home COVID test which was found to be positive on Monday03/09/24. He was reported to have a syncopal episode at his facility earlier today and decided to send patient to the hospital for further evaluation. Patient denies any fever, chills, nausea, vomiting, diarrhea, abdominal pain, chest pain, shortness a breath. He is currently on room air with oxygen saturation of 97%. He does appear to be fatigued and weak. Patient initially meeting sepsis/septic shock criteria with a respiratory rate 21-26, hypotension, elevated lactic acid, elevated white blood cell count, and known source of infection. Workup in the hospital includes chest x-ray which shown opacity projected over the spine and the lateral view which may be a mass or pneumonia and the lower lobe. CT of the chest showed left lower lobe pneumonia, mild bronchiectasis in right upper lobe associated with a cluster of nodules measuring up to 4 mm, trace left pleural effusion. Initial labs shown a white blood cell count of 16.2, RBC 3.69, hemoglobin 11.6, anion gap 17, bicarb 20, creatinine 3.3, GFR 18, lactic acid 2.5, total bili 2.0, liver enzymes were normal. Blood cultures were obtained and are pending. Last echo was reviewed from 08/14/2023 and shown a severely reduced LV systolic function with an estimated EF of 30-35%, diastolic dysfunction, moderate concentric increased left ventricular wall thickness, moderately enlarged left atrium, severely enlarged right atrium, mild aortic valve sclerosis, mild mitral valve regurgitation. Patient was given azithromycin, Rocephin, and 1 L of normal saline while in the ED. Patient had repeat echo which showed normal LV systolic function with an estimated EF of 55-60%, diastolic dysfunction. Patient has been refusing medications and IV fluids and only requesting comfort measures at this time. Family updated on patient request for comfort. Case coordination consulted for hospice consult. He is stable for discharge back to his facility on hospice care. Final diagnosis: Septic shock, community-acquired pneumonia, COVID-19, acute kidney injury superimposed on chronic kidney disease, congestive heart failure combined systolic and diastolic Status at Discharge Cognitive/behavioral status at discharge: Alert oriented x3 Functional status at discharge: bed bound Overall status at discharge: patient is not back to baseline Time Spent with Patient Time attestation: Total time spent providing and/or coordinating discharge services: Time spent: Greater than 30 minutes Exam Narrative: General: In no acute distress, appears weak, failure to thrive Cardiac: Normal S1 and S2. No murmur, gallops or friction rubs, peripheral pulses intact. Respiratory: Lung sounds are clear, no adventitious lung sounds, currently on room air Gastrointestinal: soft, non-distended, non-tender, normoactive bowel sounds. : voiding without difficulty. Neuro: Alert and oriented x3 DS: Data Data Completed and Pending Completed studies during hospitalization: Chest CT Chest x-ray Pending studies at discharge: Blood cultures Labs on day of discharge: Labs from last 24 hours 05/16/24 05/16/24 05/16/24 11:58 08:06 06:27 WBC RBC Hgb Hct MCV MCH MCHC RDW Plt Count MPV Immature Gran % (Auto) Neut % (Auto) Lymph % (Auto) [place] % (Auto) Eos % (Auto) Baso % (Auto) Lymph # (Auto) [place] # (Auto) Eos # (Auto) Baso # (Auto) Abs Immat Gran (auto) Absolute Neuts (auto) Absolute Nucleated RBC Nucleated RBC % Sodium Potassium Chloride Carbon Dioxide Anion Gap BUN Creatinine Estim Creat Clear Calc Estimated GFR Glucose POC Capillary Glucose 133 H 97 104 Calcium Total Bilirubin AST ALT Alkaline Phosphatase Total Protein Albumin 05/16/24 05/15/24 05/15/24 05:33 20:20 16:05 WBC 10.7 H RBC 3.28 L Hgb 10.0 L Hct 33.0 L MCV 100.6 H MCH 30.5 MCHC 30.3 L RDW 14.1 Plt Count 231 MPV 10.1 Immature Gran % (Auto) 0.7 H Neut % (Auto) 84.4 H Lymph % (Auto) 6.8 L [place] % (Auto) 7.1 Eos % (Auto) 0.8 Baso % (Auto) 0.2 Lymph # (Auto) 0.73 L [place] # (Auto) 0.8 H Eos # (Auto) 0.1 Baso # (Auto) 0.0 Abs Immat Gran (auto) 0.08 H Absolute Neuts (auto) 9.0 H Absolute Nucleated RBC 0.000 Nucleated RBC % 0.0 Sodium 139 Potassium 3.7 Chloride 108 H Carbon Dioxide 16 L Anion Gap 15 H BUN 65 H D Creatinine 2.40 H Estim Creat Clear Calc 21 Estimated GFR 26 L Glucose 98 POC Capillary Glucose 118 H 122 H Calcium 8.0 L Total Bilirubin 1.0 AST 61 H ALT 34 Alkaline Phosphatase 77 Total Protein 6.0 L Albumin 3.1 L Preliminary micro results at discharge 05/14/24 12:31 Blood Culture - Preliminary Blood 05/14/24 12:28 Blood Culture - Preliminary Blood Procedures/Treatments: None Discharge Plan Discharge Attending physician on discharge: Yvonne Molina Discharging Clinician: Renu Vital Anticipated Discharge Date/Time: 05/16/24 13:54 Patient Disposition: [place] Nursing Home/Asst Living Activity: as tolerated Diet: as tolerated Discharge Instructions: * Patient and family wanting comfort measures/hospice only. Patient Language: Pashto Stand Alone Forms: General Discharge Information, Intermediate Discharge Discharge Medications: Continued buspirone 10 mg Tablet 15 mg PO TID Rx Instructions: takes at 0600 , 1600, midnight atorvastatin 80 mg Tablet 80 mg PO HS (DME) Accu-Chek Guide test strips Strip MISCELLANEOUS tamsulosin 0.4 mg Capsule 0.4 mg PO HS omeprazole 20 mg Capsule,Delayed Release(Dr/Ec) 20 mg PO DAILY finasteride 5 mg Tablet 5 mg PO DAILY cholecalciferol (vitamin D3) [Vitamin D3] 25 mcg (1,000 unit) Tablet 25 mcg PO DAILY aspirin 81 mg Capsule,Delayed Release(Dr/Ec) 81 mg PO DAILY alprazolam 0.5 mg Tablet 0.5 mg PO DAILY PRN (Reason: Anxiety) Rx Instructions: take one tablet by mouth once a day as needed for anxiety sitagliptin 25 mg Tablet 25 mg PO DAILY carvedilol [Coreg] 3.125 mg tablet 6.25 mg PO Q12HR Jardiance 10 mg tablet 25 mg PO DAILY furosemide 40 mg Tablet 40 mg PO DAILY Qty: 30 0RF Entresto 24-26 mg Tablet 1 tab PO Q12HR Qty: 60 0RF Rx Instructions: Sacubitril 49mg/ Valsartan 51mg Date of admission: 05/15/24 12:56 Primary Care Provider: UNKNOWN,DOCTOR Admitting Provider: Omar Quiñonez Attending physician on admission: Renu Vital Condition: Guarded Prognosis Quality VTE Prophylaxis VTE prophylaxis: pharmacologic ordered
--- NOTE | 2024-05-16 16:00 | PC.NURSE ---
Family updated on room transfer and plan of care for discharge on 05/17/24.
[2024-05-16 16:59] LABS: Glucose Point of Care 119 mg/dl (65-105)
--- NOTE | 2024-05-16 17:02 | PC.NURSE ---
This patient, Rob Aguiar Jr., was transferred to [facility] on 05/16/24 at 1702 without issue. Family and staff at bedside. Personal belongings sent with patient. Report given to Deepthi Self. Appropriate documentation sent with patient.
--- NOTE | 2024-05-16 17:41 | PC.NURSE ---
This patient, Rob Aguiar JrDerick, was received from [facility] on 05/16/24 at [facility]. Patient/family oriented to unit policies and routines.
--- NOTE | 2024-05-16 22:03 | PC.NURSE ---
RN aware of low blood pressure of 81/44. Patient is refusing any potential treatment and is going hospice tomorrow.
[2024-05-17 05:29] LABS: Basophils Percent Auto 0.1 % (0.2-1.2); Eosinophils Absolute Auto 0.2 K/mm3 (0-0.3); Eosinophils Percent Auto 2.1 % (0-4.4); Hemoglobin 9.6 g/dL (14.0-18.0); Immature Granulocyte Absolute 0.11 K/mm3 (0.00-0.031); Immature Granulocyte Percent A 1.5 % (0-0.5); Lymphocytes Absolute Auto 0.95 K/mm3 (0.9-3.2); Lymphocytes Percent Auto 13.3 % (18.3-44.2); Mean Corpuscular Hemoglobin 30.7 pg (26-34); Mean Platelet Volume 9.9 fl (7.4-10.4); Monocytes Absolute Auto 0.9 K/mm3 (0.1-0.6); Monocytes Percent Auto 12.7 % (2.6-8.5); Neutrophils Percent Auto 70.3 % (45.5-73.1); Platelet Count Result 231 k/mm3 (150-375); Red Blood Count 3.13 M/mm3 (4.6-6.20); Red Cell Distribution Width 14.1 % (11.5-14.5); White Blood Count 7.2 K/mm3 (4.5-10.0)
[2024-05-17 05:47] LABS: Alanine Aminotransferase 44 U/L (6-50); Albumin Level 2.9 g/dL (3.5-5.1); Alkaline Phosphatase 76 U/L (38-126); Anion Gap 10 mmol/L (4-12); Aspartate Amino Transferase 78 U/L (17-59); Bilirubin,Total 0.9 mg/dL (0.2-1.3); Blood Urea Nitrogen 57 mg/dL (9-20); Calcium 7.8 mg/dL (8.4-10.2); Carbon Dioxide 23 mmol/L (22-30); Chloride 106 mmol/L (98-107); Estimated CRCL calculation 25 ml/min; Estimated Glomerular Filt Rate 32; Glucose 93 mg/dL (65-110); Potassium 3.7 mmol/L (3.4-5.0); Sodium 139 mmol/L (137-145)
[2024-05-17 06:49] VITALS: BP 87/50; PULSE 81; RESP 18; TEMP 36.5; O2SAT 100
[2024-05-17 08:00] VITALS: BP 100/58; PULSE 78; RESP 18; TEMP 36.6; O2SAT 97; O2SAT 98
[2024-05-17 09:01] LABS: Glucose Point of Care 121 mg/dl (65-105)
[2024-05-17 11:55] LABS: Glucose Point of Care 142 mg/dl (65-105)
[2024-05-20 19:18] LABS: Pneumococcal Antigen Urine NOT DETECTED
== END 2024-05-17 12:35 | DRG 193 ==
LOC: ANHED 08:52 → ANHIMU 11:12 → ANH2MED 05-16 16:49
PROVIDERS: Admitting Provider Internal Medicine; Emergency Provider Emergency Medicine; Visit Provider Nurse Practitioner Acute Care
DX: J18.9 Pneumonia, unspecified organism (principal); U07.1 COVID-19; I13.0 Hypertensive heart and chronic kidney disease with heart failure and stage 1 through stage 4 chronic kidney disease, or unspecified chronic kidney disease; I50.42 Chronic combined systolic (congestive) and diastolic (congestive) heart failure; N17.9 Acute kidney failure, unspecified; E87.20 Acidosis, unspecified; I95.9 Hypotension, unspecified; N18.9 Chronic kidney disease, unspecified; I25.10 Atherosclerotic heart disease of native coronary artery without angina pectoris; E78.00 Pure hypercholesterolemia, unspecified; E11.9 Type 2 diabetes mellitus without complications; F41.9 Anxiety disorder, unspecified; Z95.0 Presence of cardiac pacemaker; Z79.82 Long term (current) use of aspirin; Z87.891 Personal history of nicotine dependence
CPT/HCPCS: 36415; 71046; 71250; 80053; 81003; 82948; 83036; 83605; 83735; 85025; 86738; 87040; 87637; 87641; 87899; 93005; 94640; 96361; 96365; 96368; 99285; A9270; C8929; G0378; J0456; J0696; J1815; J7030; J7040; Q9957